=== PATIENT | male | born 2005 | race Native Hawaiian/Other Pacific Islander ===

== ENCOUNTER 2023-05-13 23:21 | Emergency (ER) | payer OTHER, SELFPAY ==
[2023-05-13 23:26] VITALS: BP 128/84; PULSE 107; RESP 18; TEMP 36.4; O2SAT 97; BMI 22.6
[2023-05-14 00:08] LABS: MANUAL DIFF FLAG NO
[2023-05-14 00:09] LABS: Basophils Percent Auto 0.3 % (0-2); Eosinophils Absolute Auto 0.1 X10*3/uL (0.0-0.4); Eosinophils Percent Auto 0.9 % (0-4); Hematocrit 38.1 % (37.0-47.0); Hemoglobin 13.3 g/dl (12.0-16.0); Imm Gran Abs Auto 0.03 X10*3/uL (0.00-0.03); Imm Gran Pct Auto 0.2 % (0.0-0.4); Lymphocytes Absolute Auto 3.8 X10*3/uL (1.2-4.9); Mean Corpuscular HGB Conc 34.9 g/dl (31.0-35.0); Mean Corpuscular Hemoglobin 30.1 pg (27.0-33.0); Mean Corpuscular Volume 86.2 fL (80.0-98.0); Mean Platelet Volume 9.6 fL (9.4-12.3); Monocytes Absolute Auto 1.2 X10*3/uL (0.1-1.2); Monocytes Percent Auto 9.5 % (2-11); Neutrophils Absolute Auto 7.1 x10*3/uL (2.0-8.3); Neutrophils Percent Auto 58.1 % (45-73); Platelet Count 267 X10*3/uL (160-400); Red Blood Count 4.42 X10*6/uL (4.20-5.50); Red Cell Distribution Width 12.4 % (11.0-16.0); White Blood Count 12.3 X10*3/uL (4.8-10.8)
[2023-05-14 00:10] LABS: Appearance Urine Clear; Color Urine Yellow; Glucose Urine UA Negative (Negative); Leukocyte Esterase Urine Negative (Negative); Nitrite Urine Negative (Negative); PH 5.5 (5.0-9.0); Specific Gravity - Urine >= 1.030 (1.005-1.025); Urine Blood Negative (Negative); Urine Ketones Trace mg/dL (Negative); Urine Protein Trace mg/dL (Neg-Trace)
[2023-05-14 00:13] LABS: UPreg QC Valid YES; Urine Pregnancy NEGATIVE (NEGATIVE)
--- NOTE | 2023-05-14 00:13 | MHC.EDTECH ---
pt belongings placed in [facility] #1
[2023-05-14 00:17] LABS: Amphetamine Screen Urine Not Detected (Not Detect); Barbiturates, Urine Not Detected (Not Detect); Benzodiazepines Screen Urine Not Detected (Not Detect); Cannabinoid Screen Urine POSITIVE (Not Detect); Cocaine Screen Urine Not Detected (Not Detect); Opiate Screen Urine Not Detected (Not Detect); Phencyclidine Screen Urine Not Detected (Not Detect)
--- NOTE | 2023-05-14 00:24 | ED_ITS ---
HPI - Psych General Chief Complaint: Psychiatric Symptoms Stated Complaint: SI Time Seen by Provider: 05/13/23 23:32 Source: patient Mode of arrival: ambulatory Limitations: no limitations History of Present Illness HPI Narrative: Patient no history of depression or psychiatric illness lives with her boyfriend with heated her parent's house and had to work tomorrow and walk all the way to [place] as patient has refused to drop her to her apartment had argument with her stepdad and after having verbal altercation patient was tearful and upset and made suicidal statement to her boyfriend patient of financial crisis lately at this time patient is feeling better going to college Related Data Home Medications Medication Instructions Recorded Confirmed No Known Home Meds 05/13/23 05/13/23 Allergies Allergy/AdvReac Type Severity Reaction Status Date / Time strawberry Allergy Rash Verified 05/13/23 23:33 peanut AdvReac Difficulty Verified 05/13/23 23:33 Breathing Review of Systems Review of Systems: Yes all other systems are reviewed and are negative Physical Exam Vital Signs: Vital Signs: Last Vital Signs Temp 97.6 F 05/13/23 23:26 Pulse 107 H 05/13/23 23:26 Resp 18 05/13/23 23:26 BP 128/84 05/13/23 23:26 Pulse Ox 97 05/13/23 23:26 O2 Del Method Room Air 05/13/23 23:26 BMI result Body Mass Index 22.6 Appearance: Alert. Oriented X3. No acute distress. Eyes: PERRLA, No Nystagmus ENT: Pharynx normal. Oral Mucosa moist Neck: Normal inspection. Neck supple. CVS: Normal heart rate and rhythm. Pulses normal. Respiratory: No respiratory distress. Equal air entry bilateral, no wheezing/rales/rhonchi Abdomen: Soft and nontender. Bowel sounds are present, no mass palpable, no CVA tenderness Skin: Skin warm and dry. Normal skin color. Normal skin turgor. Extremities: No lower extremity edema. No calf tenderness psych: Mood stable cheerful denies any SI HI Neuro: Oriented X 3. No motor deficit. No sensory deficit.No cerebellar signs , cranial nerves II-XII intact Medical Decision Making Medical Decision Making MDM Narrative: Patient under financial crisis feels okay at this time to go home with her fiance denies any SI or depression or psychological problems Lab Data 05/14/23 00:02 05/14/23 00:02 Labs: Lab Results 05/13/23 05/13/23 05/13/23 Range/Units 23:58 23:58 23:58 WBC (4.8-10.8) X10*3/uL RBC (4.20-5.50) X10*6/uL Hgb (12.0-16.0) g/dl Hct (37.0-47.0) % MCV (80.0-98.0) fL MCH (27.0-33.0) pg MCHC (31.0-35.0) g/dl RDW (11.0-16.0) % Plt Count (160-400) X10*3/uL MPV (9.4-12.3) fL Immature Gran % (Auto) (0.0-0.4) % Neut % (Auto) (45-73) % Lymph % (Auto) (20-40) % [place] % (Auto) (2-11) % Eos % (Auto) (0-4) % Baso % (Auto) (0-2) % Lymph # (Auto) (1.2-4.9) X10*3/uL [place] # (Auto) (0.1-1.2) X10*3/uL Eos # (Auto) (0.0-0.4) X10*3/uL Baso # (Auto) (0.0-0.2) X10*3/uL Abs Immat Gran (auto) (0.00-0.03) X10*3/uL Absolute Neuts (auto) (2.0-8.3) x10*3/uL Absolute Nucleated RBC (0.0-0.012) X10*3/uL Nucleated RBC % (auto) (0.0-0.2) /100WBC Urine Color Yellow Urine Appearance Clear Urine pH 5.5 (5.0-9.0) Ur Specific [place] >= 1.030 H (1.005-1.025) Urine Protein Trace (Neg-Trace) mg/dL Urine Glucose (UA) Negative (Negative) mg/dL Urine Ketones Trace (Negative) mg/dL Urine Blood Negative (Negative) Urine Nitrite Negative (Negative) Ur Leukocyte Esterase Negative (Negative) Urine Test NEGATIVE (NEGATIVE) Urine Opiates Screen Not Detected (Not Detect) Urine Fentanyl Screen POSITIVE H (Not Detect) Ur Barbiturates Screen Not Detected (Not Detect) Ur Phencyclidine Scrn Not Detected (Not Detect) Ur Amphetamines Screen Not Detected (Not Detect) U Benzodiazepines Scrn Not Detected (Not Detect) Urine Cocaine Screen Not Detected (Not Detect) U Marijuana (THC) Screen POSITIVE H (Not Detect) 05/14/23 Range/Units 00:02 WBC 12.3 H (4.8-10.8) X10*3/uL RBC 4.42 (4.20-5.50) X10*6/uL Hgb 13.3 (12.0-16.0) g/dl Hct 38.1 (37.0-47.0) % MCV 86.2 (80.0-98.0) fL MCH 30.1 (27.0-33.0) pg MCHC 34.9 (31.0-35.0) g/dl RDW 12.4 (11.0-16.0) % Plt Count 267 (160-400) X10*3/uL MPV 9.6 (9.4-12.3) fL Immature Gran % (Auto) 0.2 (0.0-0.4) % Neut % (Auto) 58.1 (45-73) % Lymph % (Auto) 31.0 (20-40) % [place] % (Auto) 9.5 (2-11) % Eos % (Auto) 0.9 (0-4) % Baso % (Auto) 0.3 (0-2) % Lymph # (Auto) 3.8 (1.2-4.9) X10*3/uL [place] # (Auto) 1.2 (0.1-1.2) X10*3/uL Eos # (Auto) 0.1 (0.0-0.4) X10*3/uL Baso # (Auto) 0.0 (0.0-0.2) X10*3/uL Abs Immat Gran (auto) 0.03 (0.00-0.03) X10*3/uL Absolute Neuts (auto) 7.1 (2.0-8.3) x10*3/uL Absolute Nucleated RBC 0.000 (0.0-0.012) X10*3/uL Nucleated RBC % (auto) 0.0 (0.0-0.2) /100WBC Urine Color Urine Appearance Urine pH (5.0-9.0) Ur Specific [place] (1.005-1.025) Urine Protein (Neg-Trace) mg/dL Urine Glucose (UA) (Negative) mg/dL Urine Ketones (Negative) mg/dL Urine Blood (Negative) Urine Nitrite (Negative) Ur Leukocyte Esterase (Negative) Urine Test (NEGATIVE) Urine Opiates Screen (Not Detect) Urine Fentanyl Screen (Not Detect) Ur Barbiturates Screen (Not Detect) Ur Phencyclidine Scrn (Not Detect) Ur Amphetamines Screen (Not Detect) U Benzodiazepines Scrn (Not Detect) Urine Cocaine Screen (Not Detect) U Marijuana (THC) Screen (Not Detect) Discharge Plan Discharge Clinical Impression: Emotional disorder Patient Disposition: Home, Self-Care Instructions: Anxiety in Adolescents (ED) Additional Instructions: Follow with your PCP/therapist if any concerns Prescriptions: No Action No Known Home Meds Interventions: [place]-Suicide Risk Severity Scale Last Done: 05/14/23 00:26
[2023-05-14 00:26] LABS: Acetaminophen LAB < 17 mcg/mL (<30); Alanine Aminotransferase 8 U/L (0-31); Albumin Level 4.7 g/dL (3.5-5.0); Alkaline Phosphatase 68 U/L (39-117); Anion Gap 16 (12-20); Aspartate Amino Transferase 14 U/L (5-31); Bilirubin Total 0.3 mg/dL (0.0-1.0); Blood Urea Nitrogen 19 mg/dL (9-16); Calcium 9.6 mg/dL (8.4-10.2); Carbon Dioxide 21 mmol/L (22-29); Chloride 107 mmol/L (96-108); Creatinine Clr Calc Pharmacy 84.7; Estimated Glomerular Filt Rate > 60; Ethanol < 10 mg/dL; Glucose Random 89 mg/dL (60-115); Potassium 3.9 mmol/L (3.3-5.1); Salicylate < 5.0 mg/dL (15-30); Sodium 140 mmol/L (135-145); Total Protein 7.7 g/dL (6.5-8.0)
[2023-05-15 12:53] LABS: Fentanyl, urine SEE COMMENTS (Not Detect)
[2023-05-19 09:20] LABS: Norfentanyl, Ur NEGATIVE
[2023-06-03 12:32] LABS: Fentanyl, Ur NEGATIVE
== END 2023-05-14 01:08 | disposition home or self-care (01) ==
PROVIDERS: Emergency Provider Internal Medicine
DX: F93.8 Other childhood emotional disorders (principal); R45.851 Suicidal ideations; F12.90 Cannabis use, unspecified, uncomplicated
CPT/HCPCS: 36415; 80053; 80143; 80179; 80307; 80354; 81003; 81025; 85025; 99283; 99284

== ENCOUNTER 2023-06-02 15:07 | Emergency (ER) | payer OTHER, SELFPAY ==
--- NOTE | ~2023-06-02 | XR_ITS ---
EXAMINATION: XR CHEST 2 VIEW CLINICAL INFORMATION: Fever and cough COMPARISON: None TECHNIQUE: PA and lateral views of the chest obtained. FINDINGS: The lungs are clear. There are no pleural effusions. The cardiomediastinal silhouette is normal. XR/XR chest 2V IMPRESSION: No acute cardiopulmonary disease.
[2023-06-02 15:15] VITALS: BP 112/70; PULSE 112; O2SAT 96
[2023-06-02 15:57] VITALS: BP 138/79; PULSE 107; RESP 18; TEMP 37.8; O2SAT 99; BMI 23.4
--- NOTE | 2023-06-02 15:58 | ED_ITS ---
HPI - URI/Sore Throat General Chief Complaint: Upper Respiratory Symptoms Stated Complaint: Body aches, voimiting Time Seen by Provider: 06/02/23 16:46 Source: patient and family (Significant other) Mode of arrival: ambulatory History of Present Illness HPI Narrative: This is a 17-year-old patient who comes in with body aches and vomiting, joint pain, nasal congestion and reports coughing up phlegm with sore throat and very tired. Denies any past medical history but does endorse smoking marijuana. Related Data Home Medications Medication Instructions Recorded Confirmed estradiol 2 mg tablet 2 mg PO BID 06/03/23 06/03/23 spironolactone 100 mg tablet 100 mg PO BID 06/03/23 06/03/23 Previous Rx's Medication Instructions Recorded amoxicillin 875 mg-potassium 1 tab PO Q12H #14 tabs 06/05/23 clavulanate 125 mg tablet Allergies Allergy/AdvReac Type Severity Reaction Status Date / Time strawberry Allergy Rash Verified 06/03/23 21:17 peanut AdvReac Difficulty Verified 06/03/23 21:17 Breathing Review of Systems Review of Systems: Pertinent positives and negatives as stated in HPI [facility] Past Medical History Source: nursing notes reviewed Social History Social History Household Members: Significant Other Housing: Apartment Do you presently have visiting nurse or other home services: No Patient Tobacco Use Status: Never used Tobacco Substance Use Type: Marijuana service: No Physical Exam Vital Signs: Vital Signs: Last Vital Signs Temp 99.3 F 06/02/23 20:10 Pulse 78 06/02/23 20:10 Resp 18 06/02/23 20:10 BP 105/53 L 06/02/23 20:10 Pulse Ox 98 06/02/23 20:10 O2 Del Method Room Air 06/02/23 20:10 BMI result Body Mass Index 23.4 VITAL SIGNS: Reviewed. GENERAL: Well developed, well nourished, in no acute distress. HEAD: Normocephalic/atraumatic EYES: PERRLA, EOMI EARS: Ext canals without abnormality NOSE: Nares patent bilateral OROPHARYNX: no oral lesions noted, posterior pharynx clear and non-erythematous without noted tonsillar enlargement/erythema/exudates NECK: Supple, no adenopathy LUNGS: Normal breath sounds. No adventitious sounds or accessory muscle use. SpO2<99> CARDIOVASCULAR: Regular rate and rhythm without noted murmurs ABDOMEN: Soft, non-tender, non-distended with bowel sounds. MUSCULOSKELETAL: No tenderness, deformities, or effusions noted on gross inspection. EXTREMITIES: No cyanosis, clubbing or edema. SKIN: Inspection of the skin reveals no rashes NEUROLOGIC: Alert and oriented x 4. Strength and sensation to light touch were grossly intact x 4. Course Course Course Narrative: RME- 16PM 17yo born male transition to female who is presenting to the ED with c/o chills, body aches, joint pains, fatigue, headaches, nausea/vomiting, lightheadedness, sore throat, coughing with yellow sputum production since yesterday worse today. + Co-Worker was sick no other sick contacts. No recent travel. Plan: Strep, COVID/RSV/flu swab and chest x-ray patient sent to EM for further evaluation treatment. Medications Administered Discontinued Medications Generic Name Dose Route Start Last Admin Trade Name Jarrell PRN Reason Stop Dose Admin Acetaminophen 975 mg 06/02/23 17:10 06/02/23 17:27 Acetaminophen 325 Mg Tablet PO 06/02/23 17:11 975 mg ONCE ONE Administration Diphenhydramine HCl 25 mg 06/02/23 18:41 06/02/23 18:50 Diphenhydramine Hcl 50 Mg/Ml Vial IM 06/02/23 18:42 25 mg ONCE ONE Administration Ibuprofen 800 mg 06/02/23 16:02 06/02/23 17:27 Ibuprofen 800 Mg Tablet PO 06/02/23 16:03 800 mg ONCE ONE Administration Metoclopramide HCl 10 mg 06/02/23 18:41 06/02/23 18:50 Metoclopramide Hcl 10 Mg/2 Ml Vial IM 06/02/23 18:42 10 mg ONCE ONE Administration Ondansetron HCl 4 mg 06/02/23 17:10 06/02/23 17:27 Ondansetron Odt 4 Mg Tab.Rapdis TRANSLINGU 06/02/23 17:11 4 mg ONCE ONE Administration Medical Decision Making Medical Decision Making MDM Narrative: 17-year-old patient with history and clinical presentation suggestive of possible viral syndrome verses hyperemesis secondary to marijuana use. After review of all vital signs and clinical exam I have no concerns for AOM/pneumonia. - Patient provided with Tylenol/ibuprofen as well as Zofran. - I was informed by nursing that patient still has nausea and vomiting and I have ordered Benadryl and Reglan. All viral testing is negative, strep is negative and chest x-ray does not demonstrate any infiltrate and otherwise my interpretation is in agreement with radiology's impression. On re-evaluation patient is improved after receiving the Benadryl and Reglan and has tolerated oral intake. Differential Diagnosis Differential Diagnoses: The differential diagnosis associated with the presentation includes Please see the discussion above Admission/Observation Consideration of admission/observation: Escalation of care including admission/observation considered Please see the discussion above Lab Data Labs: Lab Results 06/02/23 Range/Units 16:04 Influenza Type A (PCR) NEGATIVE (Negative) Influenza Type B (PCR) NEGATIVE (Negative) RSV RNA Qual (PCR) NEGATIVE (Negative) SARS-CoV-2 RNA (RT-PCR) NEGATIVE (Negative) S. pyogenes GrpA [place] Negative (Negative) Discharge Plan Discharge Clinical Impression: Nausea & vomiting, Cannabis use disorder Patient Disposition: Home, Self-Care Instructions: Acute Nausea and Vomiting (ED) Additional Instructions: 1. I would use caution in the amount of marijuana use as this may be contributing to your symptoms. 2. I have provided you with a prescription for antinausea medication. 3. Over the next 24 hours recommend bland diet and increase the amount of water intake. 4. Please follow-up with your primary care provider. Return to the ER for any worsening symptoms. Prescriptions: No Action spironolactone 100 mg tablet 100 mg PO BID estradiol 2 mg tablet 2 mg PO BID amoxicillin-pot clavulanate 875-125 mg Tablet 1 tab PO Q12H Qty: 14 0RF Interventions: ED Discharge Assessment Last Done: 06/02/23 21:04 Discharge Date/Time: 06/02/23 21:04
[2023-06-02 16:38] LABS: IDNOW Serial# 08D9AD1C; Strep A Nucleic Acid Negative (Negative)
[2023-06-02 17:01] LABS: Influenza A PCR NEGATIVE (Negative); Influenza B PCR NEGATIVE (Negative); Resp Syncy Virus RNA Qual PCR NEGATIVE (Negative); SARS COV2 PCR INHOUSE NEGATIVE (Negative)
[2023-06-02] MEDS: Acetaminophen 325 MG TABLET 975 MG PO (17:27)
[2023-06-02] MEDS: Ibuprofen 800 MG TABLET PO (17:27)
[2023-06-02] MEDS: Ondansetron ODT 4 MG TAB.RAPDIS TRANSLINGU (17:27)
[2023-06-02] MEDS: Metoclopramide HCl 10 MG/2 ML VIAL IM (18:50)
[2023-06-02] MEDS: diphenhydrAMINE HCL 50 MG/ML VIAL 25 MG IM (18:50)
[2023-06-02 20:10] VITALS: BP 105/53; PULSE 78; RESP 18; TEMP 37.4; O2SAT 98
--- NOTE | 2023-06-02 20:42 | PC.NURSE ---
po trial successful and pt states feeling better. aox4. calm, cooperative in bed. no distress.
--- NOTE | 2023-06-02 21:03 | PC.NURSE ---
aox4. calm, cooperative. no n/v at this time reported/noted. walks well. no respiratory distress. no cp/dizziness. no piv in place at this time. no pain noted.
== END 2023-06-02 21:04 | disposition home or self-care (01) ==
PROVIDERS: Physician Assistant Medical; Emergency Provider Student in an Organized Health Care Education/Training Program
DX: M79.10 Myalgia, unspecified site (principal); R05.9 Cough, unspecified; R11.2 Nausea with vomiting, unspecified; F12.10 Cannabis abuse, uncomplicated; Z20.822 Contact with and (suspected) exposure to COVID-19; Z20.828 Contact with and (suspected) exposure to other viral communicable diseases
CPT/HCPCS: 0241U; 71046; 87651; 96372; 99284; J1200; J2765

== ENCOUNTER 2023-06-03 08:56 | Inpatient (IN) | payer OTHER, SELFPAY ==
[2023-06-03] VITALS (10 sets, daily range): BP systolic 97–124; BP diastolic 52–69; PULSE 72–113; RESP 14–22; TEMP 36.4–38.2; O2SAT 95–100; BMI 23.4
--- NOTE | ~2023-06-03 | CT_ITS ---
HEAD CT WITHOUT IV CONTRAST NECK CT WITH IV CONTRAST INDICATION: Headache/neck pain. COMPARISON: None available. TECHNIQUE: First, a noncontrast CT of the head is performed. Multidetector CT acquisition of the neck was obtained following the administration of 60cc of Omnipaque 350IV contrast. Multiplanar reformats were acquired and utilized for image interpretation. This CT examination was performed using dose optimization techniques as appropriate, variously including the following: *Automated exposure control *Adjustment of mA and/or kV according to patient size (this includes techniques or standardized protocols for targeted exams where dose is matched to indication/reason for exam; i.e. extremities or head) *Use of iterative reconstruction technique FINDINGS: CT NECK: Bilateral palatine tonsillitis. No discrete peripherally enhancing fluid collection to suggest a peritonsillar abscess. No retropharyngeal abscess. There are multiple enlarged jugulodigastric/jugular chain of the bilaterally that are most likely reactive . Some of these lymph nodes have adjacent cellulitic change suggesting lymphadenitis. There is a 2.2 cm round nodule within the posterior left parapharyngeal space that may reflect an enlarged lateral retropharyngeal lymph node but should be followed once the acute course resolves to exclude an underlying mass lesion. CT HEAD: There is no intracranial hemorrhage, hydrocephalus, extra-axial surface collection, midline shift, or other herniation pattern. Starr to white matter differentiation is diffusely maintained without evidence of an evolved acute territorial infarct. The basilar cisterns are preserved. No significant soft tissue abnormality. No acute osseous abnormality. The paranasal sinuses and the mastoid air cells are well aerated. CT/CT soft tissue neck w IV con IMPRESSION: Bilateral palatine tonsillitis. No discrete peripherally enhancing fluid collection to suggest a peritonsillar abscess. No retropharyngeal abscess. There are multiple enlarged jugulodigastric/jugular chain of the bilaterally that are most likely reactive . Some of these lymph nodes have adjacent cellulitic change suggesting lymphadenitis. There is a 2.2 cm round nodule within the posterior left parapharyngeal space that may reflect an enlarged lateral retropharyngeal lymph node but should be followed once the acute course resolves to exclude an underlying mass lesion. No acute intracranial findings.
--- NOTE | ~2023-06-03 | CT_ITS ---
Examination: CTA chest. CT abdomen and pelvis IV contrast. Clinical indications: SOB. Abdominal pain with midline spinous tenderness. COMPARISON: None. TECHNIQUE: 5 mm thin axial and reformatted 3 mm thin sagittal and coronal images of chest, abdomen pelvis were obtained following IV 85 mL Omnipaque 350 355. In addition oblique 8 blood coronal mip images of chest were obtained. FINDINGS: CTA: There is good opacification of pulmonary artery and is branches without any intraluminal filling defect or not narrowing. The pulmonary artery is of normal size. The thoracic aorta is of normal caliber without aneurysm or dissection. Non-CTA: LUNGS: Both lungs are fairly well-expanded and clear of acute pneumonic process. No pulmonary nodule, mass or consolidation seen. There is no atelectasis or groundglass density. Mediastinum: Thyroid lobes are symmetrical and normal. The central trachea and the bronchi appears widely patent. No abnormal size mediastinal or hilar lymph nodes seen. There is residual thymus in the anterior mediastinum. There is no pericardial effusion. No coronary artery calcification seen. Pleura: No evidence of pleural thickening, effusion or pneumothorax. Axilla: No abnormal size axillary lymph nodes seen. There is bilateral gynecomastia. Rest the chest wall is unremarkable. Osseous structures: No aggressive lytic or sclerotic process seen. Abdomen and pelvis: Liver, ducts and gallbladder: The liver is homogeneous in density, normal size and contour. No focal lesion or intrahepatic ductal dilatation seen. There are no radiopaque gallstones, wall thickening or pericholecystic fluid collection. Spleen: Unremarkable. Pancreas: Unremarkable. Adrenal glands: Unremarkable. Kidneys and ureters: Both kidney nephrograms are symmetrical, normal size and cortical thickness. No enhancing renal mass, cyst or hydronephrosis seen. No obvious large radiopaque calculi. Lymphovascular structures: Abdominal aorta is normal caliber. No retroperitoneal lymph nodes or mass seen. Abdominal wall: Unremarkable. There are prominent fluid-filled elongated structures in bilateral inguinal canal question undescended testes or loculated fluid collection. The imaging doesn't extend below the pubis and the scrotum is not visualized. A belly button ring is noted. GI tract: There is scattered stool and gas seen in the colon without distention. The small bowel loops are normal caliber. Appendix is not visualized. No free air or free fluid seen. No inflammatory process seen. Pelvis: The bladder is nondistended. No radiopaque calculi wall thickening. The prostate gland is normal size with central gland calcification. No free fluid. Osseous structures: No aggressive lytic or sclerotic process seen. CT/CT angio chest PE protocol IMPRESSION: 1. No evidence of PE. No evidence of aortic dissection or aneurysm. 2. No acute process seen in the chest. 3. There is bilateral gynecomastia. 4. No acute intra-abdominal process seen. 5. Bilateral elongated fluid-filled structures in proximal to mid inguinal canal question undescended testes or loculated fluid collection. The imaging does not extend below the pubis and the scrotum is not visualized. A belly button ring is noted.
--- NOTE | ~2023-06-03 | CT_ITS ---
HEAD CT WITHOUT IV CONTRAST NECK CT WITH IV CONTRAST INDICATION: Headache/neck pain. COMPARISON: None available. TECHNIQUE: First, a noncontrast CT of the head is performed. Multidetector CT acquisition of the neck was obtained following the administration of 60cc of Omnipaque 350IV contrast. Multiplanar reformats were acquired and utilized for image interpretation. This CT examination was performed using dose optimization techniques as appropriate, variously including the following: *Automated exposure control *Adjustment of mA and/or kV according to patient size (this includes techniques or standardized protocols for targeted exams where dose is matched to indication/reason for exam; i.e. extremities or head) *Use of iterative reconstruction technique FINDINGS: CT NECK: Bilateral palatine tonsillitis. No discrete peripherally enhancing fluid collection to suggest a peritonsillar abscess. No retropharyngeal abscess. There are multiple enlarged jugulodigastric/jugular chain of the bilaterally that are most likely reactive . Some of these lymph nodes have adjacent cellulitic change suggesting lymphadenitis. There is a 2.2 cm round nodule within the posterior left parapharyngeal space that may reflect an enlarged lateral retropharyngeal lymph node but should be followed once the acute course resolves to exclude an underlying mass lesion. CT HEAD: There is no intracranial hemorrhage, hydrocephalus, extra-axial surface collection, midline shift, or other herniation pattern. Starr to white matter differentiation is diffusely maintained without evidence of an evolved acute territorial infarct. The basilar cisterns are preserved. No significant soft tissue abnormality. No acute osseous abnormality. The paranasal sinuses and the mastoid air cells are well aerated. CT/CT head/brain wo IV con IMPRESSION: Bilateral palatine tonsillitis. No discrete peripherally enhancing fluid collection to suggest a peritonsillar abscess. No retropharyngeal abscess. There are multiple enlarged jugulodigastric/jugular chain of the bilaterally that are most likely reactive . Some of these lymph nodes have adjacent cellulitic change suggesting lymphadenitis. There is a 2.2 cm round nodule within the posterior left parapharyngeal space that may reflect an enlarged lateral retropharyngeal lymph node but should be followed once the acute course resolves to exclude an underlying mass lesion. No acute intracranial findings.
--- NOTE | ~2023-06-03 | US_ITS ---
EXAMINATION: US SCROTUM CLINICAL INFORMATION: Pelvic pain. Follow up bilateral inguinal canal from CT abdomen and pelvis. COMPARISON: CT abdomen and pelvis 06/03/2023. TECHNIQUE: A sonogram of the scrotum was performed assessing seth-scale appearance and color Doppler flow. Spectral Doppler analysis of the arterial and venous flow were performed in the testes bilaterally. FINDINGS: RIGHT: Right testicle measures 4.2 x 1.9 x 2.4 cm, volume 10.2 mL. No focal testicular parenchymal lesions are visualized. Spectral Doppler analysis of the arterial and venous flow is normal in the right testis. Right epididymal head is normal in size. No right hydrocele or varicocele is seen. Right epididymal Doppler flow is normal. LEFT: Left testicle measures 3.0 x 1.8 x 2.8 cm, volume 8.0 mL. No focal testicular parenchymal lesions are visualized. Spectral Doppler analysis of the arterial and venous flow is normal in the left testis. Left epididymal head is normal in size. No left hydrocele or varicocele is seen. Left epididymal Doppler flow is normal. Imaging through bilateral inguinal canals reveals no focal abnormality or fluid collection. US/US scrotum IMPRESSION: Unremarkable scrotal ultrasound.
[2023-06-03 09:38] LABS: Hematocrit 39.3 % (42.0-52.0); Hemoglobin 13.8 g/dl (14.0-18.0); Mean Corpuscular HGB Conc 35.1 g/dl (31.0-36.0); Mean Corpuscular Hemoglobin 30.3 pg (27.0-33.0); Mean Corpuscular Volume 86.2 fL (80.0-98.0); Mean Platelet Volume 9.2 fL (9.4-12.4); Platelet Count 238 X10*3/uL (160-400); Red Blood Count 4.56 X10*6/uL (4.60-5.80); Red Cell Distribution Width 12.8 % (11.0-16.0)
[2023-06-03 09:43] LABS: White Blood Count 35.9 X10*3/uL (4.8-10.8)
[2023-06-03 09:50] LABS: Anion Gap 14 (12-20); Blood Urea Nitrogen 9 mg/dL (9-16); Calcium 10.3 mg/dL (8.4-10.2); Carbon Dioxide 21 mmol/L (22-29); Chloride 102 mmol/L (96-108); Creatinine Clr Calc Pharmacy 116.5; Estimated Glomerular Filt Rate > 60; Glucose Random 122 mg/dL (60-115); Potassium 3.7 mmol/L (3.3-5.1); Sodium 133 mmol/L (135-145)
--- NOTE | 2023-06-03 09:55 | ED.ABDPAIN ---
HPI - Abdominal Pain General Chief Complaint: Abdominal Pain Stated Complaint: vomiting, abd x 2 days, diff swallowing, per ems Time Seen by Provider: 06/03/23 09:54 Source: patient Mode of arrival: EMS Limitations: no limitations History of Present Illness HPI narrative: 17 year old transgender male to female presents to the ED today with a complaint of sore throat, fever, body aches, chills, and non bloody vomiting x2 days, worse today. Additionally reports lower back pain and lower extremity weakness/ aches. Has not had a BM in 2 days and has been unable to urinate secondary to decreased PO intake. Reports coworker is sick. No recent travel. Patient seen in ED yesterday with negative serology and unremarkable chest xray. Denies dysuria, hematuria, flank pain, bowel or bladder incontinence. Denies IVDU. Denies steroid use. Currently on hormone therapy. Related Data Home Medications Medication Instructions Recorded Confirmed estradiol 2 mg tablet 2 mg PO BID 06/03/23 06/03/23 spironolactone 100 mg tablet 100 mg PO BID 06/03/23 06/03/23 Allergies Allergy/AdvReac Type Severity Reaction Status Date / Time strawberry Allergy Rash Verified 05/13/23 23:33 peanut AdvReac Difficulty Verified 05/13/23 23:33 Breathing Review of Systems Review of Systems Constitutional: + fever, + chills, No fatigue, No malaise, + body aches ENT/Mouth: No ear pain, No hearing loss,? No nasal congestion, No sinus pain, No rhinorrhea, + sore throat, No hoarseness, No swallowing difficulty Eyes: No eye pain, No swelling, No redness, No vision changes, No foreign body, No discharge Cardio: No chest pain, No palpitations, No dyspnea on exertion, No orthopnea, No edema Respiratory: + SOB, No cough, No sputum, No wheezing, + dyspnea, No hemoptysis, No smoke exposure GI: + nausea, + vomiting, No hematemesis, No abdominal pain, No diarrhea, No constipation, No hematochezia, No melena : No irregular bleeding, No dysuria, No frequency, No urgency, No hesitancy, No hematuria, No flank pain, No urinary flow changes, No urinary incontinence or retention MSK: + back pain, No neck pain, No joint pain, No myalgias Skin: No skin lesions, No rashes Neuro: + weakness, No numbness, No paresthesias, No LOC, No dizziness, + headache Yes all other systems are reviewed and are negative [facility] Past Medical History Attestation statement: The following information was validated with the patient. Source: old records reviewed and nursing notes reviewed Social History Social History Substance Use Type: Marijuana Advance Directives: No Advance Directives Information Provided: Yes Physical Exam ED Vital Signs: Vital Signs - 24 hr 06/03/23 09:21 06/03/23 11:24 06/03/23 12:22 Temperature 98.7 F 99.4 F 100.7 F H Pulse Rate 113 H 110 H 105 H Respiratory Rate 18 22 H 14 Blood Pressure 120/65 124/69 108/63 Pulse Oximetry 97 98 100 Oxygen Delivery Method Room Air Room Air Room Air 06/03/23 13:25 06/03/23 15:35 Temperature 99.8 F 100.1 F Pulse Rate 106 H 109 H Respiratory Rate 22 H 18 Blood Pressure 105/53 L 103/66 Pulse Oximetry 97 97 Oxygen Delivery Method Room Air Room Air BMI result Body Mass Index 23.4 General: Diaphoretic. Rolling around on bed in obvious discomfort. Speaking in full sentences. Skin: Warm and dry. No rashes or lesions. Head: Normocephalic, atraumatic. EENT: EAC patent.Conjunctiva clear. Sclera is anicteric. Nasal septum is midline. Nares patent bilaterally. Tonsilar exudates b/l. Moist mucous membranes. Controlling secretions. Eyes: PERRLA. EOM intact. Neck: Supple without LAD. Normal ROM. Trachea midline.? Cardiac: Chest wall symmetric. Regular rate and rhythm. S1 and S1 appreciated. No MRG. No JVD. Lungs: CTA bilaterally. No rales, rhonchi, or wheezes. Normal respiratory effort without accessory muscle use. Abdomen: No visible lesions or scars. Soft, non-tender, non-distended. No rebound tenderness or guarding. Normoactive BS x4. No CVAT b/l. Spine: Midline spinous tenderness noted overlying L4-L5 without step off deformity. No midline c spine or t spine tenderness. No paraspinous tenderness. Normal ROM. Ext: Upper and lower extremities atraumatic, without tenderness, deformity, swelling or erythema. Full ROM throughout. Strength 5/5 throughout. Capillary refill <2 seconds in all extremities. Pulses 2+ equal and bilateral. No edema, cyanosis, or clubbing. Neuro: Alert and oriented x3. Normal speech. CN 2-12 grossly intact. Strength 5/5 intact throughout.? No saddle anesthesia.? Sensation intact to light touch.? Neurovascular intact distally. Reflexes 2+ bilaterally. Unable to assess ambulation. Course Course Course Narrative: 1105-- Leukocytosis to 35.9 with left shift, increased from 12.3 on 05/14/23 > lactic acid and cultures ordered. Abx administered. IVF started. No acute electrolyte abnormalities requiring intervention. 1148-- Lipase WNL. Lactic acid WNL. COVID, [place], flu negative. ESR WNL, CRP elevated to 12. 1215-- On re-evaluation, patient complaining of increased headache and neck pain. Will obtain head/brain CT + pain control. Temp now increased to 100.7F > Tylenol ordered. 1300-- No evidence of PE on CTA. No acute intrathoracic or intraabdominal process noted. Discussed case with my attending, Dr. Contreras who upon evaluating the patient has concerns for strep throat > awaiting rapid strep results. > My attending recommended CT neck with con to r/o CONFIGURATION MANAGEMENT ADMINISTRATOR or retropharyngeal abscess. CT NG throat swabs orderd to r/o possible gonococcal infection > Patient likely tachycardic and febrile secondary to viral illness. Unlikely sepsis. 1345-- Strep negative returned however high suspicion for strep infection > zosyn administered upon initial evaluation. 1530-- CT neck showing bilateral tonsillitis and multiple lymphnodes with adjacent cellulitic changes > will reach out to hospitalist for possible admission due to leukocytosis to 36. 1600- on re-eval, patient sleeping comfortably in bed. Used shared decision making with patient to discuss disposition. Patient agreeable to admission to the hospital for further workup of leukocytosis. Reached out to Dr. Torres who accepted patient for admission. Medical Decision Making Medical Decision Making [facility] Narrative: 1030 17 year old transgender female presenting with fever, chills, CHAVEZ, sore throat, N/V x2 days Physical exam significant for tonsilar exudates bilaterally. Controlling secretions, speaking in full sentences. Lungs CTA b/l. RRR. Midline spinous tenderness overlying L4-L5 without step off deformity. No midline c spine or t spine tenderness. No paraspinous tenderness. 5/5 strength throughout. Sensation intact to light touch. NV intact distally. Plan: labs, imaging, abx, IVF, pain control, serology, UA Concern for viral syndrome vs strep throat vs mono. Low suspicion for CONFIGURATION MANAGEMENT ADMINISTRATOR or retropharyngeal abscess. PERC score of 2 > CTA ordered for PE r/o. Unlikely ACS or pneumothorax. Concern for lumbar fracture vs muscle sprain/ strain s/p remote injury > xray lumbar spine ordered. Normal rectal sphincter tone > low suspicion for cauda equina. Concern for electrolyte abnormalities, dehydration, constipation. Low suspicion for UTI/ pyleo, nephrolithiasis, epidural abscess, cord compression, acute abdomen, or guillain barre. Differential Diagnosis Differential Diagnoses: The differential diagnosis associated with the presentation includes Concern for viral syndrome vs strep throat vs mono. Low suspicion for CONFIGURATION MANAGEMENT ADMINISTRATOR or retropharyngeal abscess. PERC score of 2 > CTA ordered for PE r/o. Unlikely ACS or pneumothorax. Concern for lumbar fracture vs muscle sprain/ strain s/p remote injury > xray lumbar spine ordered. Normal rectal sphincter tone > low suspicion for cauda equina. Concern for electrolyte abnormalities, dehydration, constipation. Low suspicion for UTI/ pyleo, nephrolithiasis, epidural abscess, cord compression, acute abdomen, or guillain barre. Admission/Observation Consideration of admission/observation: Escalation of care including admission/observation considered (as patient is tachycardic and hypoxic on 3L of oxygen secondary to +COVID) Consult Healthcare Provider Management of the patient was discussed with: Hospitalist (Dr. Shannon Torres) Lab Data MDM Lab Attestation statement: I reviewed the patient's lab results. As above. 06/03/23 09:32 06/03/23 10:36 Labs: Lab Results 06/03/23 06/03/23 06/03/23 Range/Units 09:32 10:36 11:02 WBC 35.9 H* (4.8-10.8) X10*3/uL RBC 4.56 L (4.60-5.80) X10*6/uL Hgb 13.8 L (14.0-18.0) g/dl Hct 39.3 L (42.0-52.0) % MCV 86.2 (80.0-98.0) fL MCH 30.3 (27.0-33.0) pg MCHC 35.1 (31.0-36.0) g/dl RDW 12.8 (11.0-16.0) % Plt Count 238 (160-400) X10*3/uL MPV 9.2 L (9.4-12.4) fL Immature Gran % (Auto) Cancelled Neut % (Auto) Cancelled Lymph % (Auto) Cancelled [place] % (Auto) Cancelled Eos % (Auto) Cancelled Baso % (Auto) Cancelled Lymph # (Auto) Cancelled [place] # (Auto) Cancelled Eos # (Auto) Cancelled Baso # (Auto) Cancelled Abs Immat Gran (auto) Cancelled Absolute Neuts (auto) Cancelled Absolute Nucleated RBC 0.000 (0.0-0.012) X10*3/uL Nucleated RBC % (auto) 0.0 (0.0-0.2) /100WBC Neutrophils % (Manual) 80 H (45-73) % Band Neutrophils % 8 H (3-5) % Lymphocytes % (Manual) 8 L (20-40) % Monocytes % (Manual) 4 (2-11) % Abs Neuts (Manual) 31.6 H (2.0-8.3) X10*3/uL Lymphocytes # (Manual) 2.9 (1.2-4.9) X10*3/uL Monocytes # (Manual) 1.4 H (0.1-1.2) X10*3/uL Toxic Vacuolation PRESENT Platelet Estimate NORMAL (NORMAL) Plt Morphology Comment NORMAL RBC Morphology NOTED Raghu Cells 2+ (3-5) /OIF Acanthocytes (Spur) 1+ (0-2) /OIF ESR 13 (0-15) MM/HR Sodium 133 L 133 L (135-145) mmol/L Potassium 3.7 3.9 (3.3-5.1) mmol/L Chloride 102 100 (96-108) mmol/L Carbon Dioxide 21 L 23 (22-29) mmol/L Anion Gap 14 14 (12-20) BUN 9 9 (9-16) mg/dL Creatinine 0.92 1.01 (0.5-1.4) mg/dL Estim Creat Clear Calc 116.5 106.1 Estimated GFR > 60 > 60 Random Glucose 122 H 115 (60-115) mg/dL Lactic Acid 1.6 (0.5-2.0) mmol/L Calcium 10.3 H D 10.2 (8.4-10.2) mg/dL Magnesium 1.6 (1.6-2.6) mg/dL Total Bilirubin 0.5 (0.0-1.0) mg/dL AST 15 (5-37) U/L ALT 11 (0-40) U/L Alkaline Phosphatase 62 (39-117) U/L C-Reactive Protein 11.97 H (< or = 0.50) mg/dL C-React Prot High Sens Cancelled Total Protein 7.9 (6.5-8.0) g/dL Albumin 4.6 (3.5-5.0) g/dL Lipase 16 (8-78) U/L COVID-19 (DANISH) Negative (Negative) COVID-19 Clin Com See Note Monoscreen Negative (Negative) Influenza Type A (SAGR[place]IO) Negative (Negative) Influenza Type B (SAGRARIO) Negative (Negative) Influenza A & B Note See Note S. pyogenes GrpA SAGRARIO (Negative) 06/03/23 Range/Units 12:31 WBC (4.8-10.8) X10*3/uL RBC (4.60-5.80) X10*6/uL Hgb (14.0-18.0) g/dl Hct (42.0-52.0) % MCV (80.0-98.0) fL MCH (27.0-33.0) pg MCHC (31.0-36.0) g/dl RDW (11.0-16.0) % Plt Count (160-400) X10*3/uL MPV (9.4-12.4) fL Immature Gran % (Auto) Neut % (Auto) Lymph % (Auto) [place] % (Auto) Eos % (Auto) Baso % (Auto) Lymph # (Auto) [place] # (Auto) Eos # (Auto) Baso # (Auto) Abs Immat Gran (auto) Absolute Neuts (auto) Absolute Nucleated RBC (0.0-0.012) X10*3/uL Nucleated RBC % (auto) (0.0-0.2) /100WBC Neutrophils % (Manual) (45-73) % Band Neutrophils % (3-5) % Lymphocytes % (Manual) (20-40) % Monocytes % (Manual) (2-11) % Abs Neuts (Manual) (2.0-8.3) X10*3/uL Lymphocytes # (Manual) (1.2-4.9) X10*3/uL Monocytes # (Manual) (0.1-1.2) X10*3/uL Toxic Vacuolation Platelet Estimate (NORMAL) Plt Morphology Comment RBC Morphology Mesa Cells /OIF Acanthocytes (Spur) /OIF ESR (0-15) MM/HR Sodium (135-145) mmol/L Potassium (3.3-5.1) mmol/L Chloride (96-108) mmol/L Carbon Dioxide (22-29) mmol/L Anion Gap (12-20) BUN (9-16) mg/dL Creatinine (0.5-1.4) mg/dL Estim Creat Clear Calc Estimated GFR Random Glucose (60-115) mg/dL Lactic Acid (0.5-2.0) mmol/L Calcium (8.4-10.2) mg/dL Magnesium (1.6-2.6) mg/dL Total Bilirubin (0.0-1.0) mg/dL AST (5-37) U/L ALT (0-40) U/L Alkaline Phosphatase (39-117) U/L C-Reactive Protein (< or = 0.50) mg/dL C-React Prot High Sens Total Protein (6.5-8.0) g/dL Albumin (3.5-5.0) g/dL Lipase (8-78) U/L COVID-19 (DANISH) (Negative) COVID-19 Clin Com Monoscreen (Negative) Influenza Type A (SAGRARIO) (Negative) Influenza Type B (SAGRARIO) (Negative) Influenza A & B Note S. pyogenes GrpA [place] Negative (Negative) Independent Interpretation I performed an independent interpretation of an: Plain X-Ray and CT Scan Interpretation: Agree with radiologist's interpretation. Radiology Impression Discussion of test interpretation with radiology: I have reviewed the radiologist's reading. Radiologist Impression: CT HEAD: There is no intracranial hemorrhage, hydrocephalus, extra-axial surface collection, midline shift, or other herniation pattern. Starr to white matter differentiation is diffusely maintained without evidence of an evolved acute territorial infarct. The basilar cisterns are preserved. No significant soft tissue abnormality. No acute osseous abnormality. The paranasal sinuses and the mastoid air cells are well aerated. CT soft tissue neck w IV con IMPRESSION: Bilateral palatine tonsillitis. No discrete peripherally enhancing fluid collection to suggest a peritonsillar abscess. No retropharyngeal abscess. There are multiple enlarged jugulodigastric/jugular chain of the bilaterally that are most likely reactive . Some of these lymph nodes have adjacent cellulitic change suggesting lymphadenitis. There is a 2.2 cm round nodule within the posterior left parapharyngeal space that may reflect an enlarged lateral retropharyngeal lymph node but should be followed once the acute course resolves to exclude an underlying mass lesion. No acute intracranial findings. CT angio chest PE protocol IMPRESSION: 1. No evidence of PE. No evidence of aortic dissection or aneurysm. 2. No acute process seen in the chest. 3. There is bilateral gynecomastia. 4. No acute intra-abdominal process seen. 5. Bilateral elongated fluid-filled structures in proximal to mid inguinal canal question undescended testes or loculated fluid collection. The imaging does not extend below the pubis and the scrotum is not visualized. A belly button ring is noted. CT abdomen pelvis w IV con IMPRESSION: 1. No evidence of PE. No evidence of aortic dissection or aneurysm. 2. No acute process seen in the chest. 3. There is bilateral gynecomastia. 4. No acute intra-abdominal process seen. 5. Bilateral elongated fluid-filled structures in proximal to mid inguinal canal question undescended testes or loculated fluid collection. The imaging does not extend below the pubis and the scrotum is not visualized. A belly button ring is noted. Independent Historian Clinical information obtained from an independent historian. History obtained from or confirmed by: Other (significant other) External Record Review External record reviewed: Inpatient record Prescription Management I considered prescription management with: Pain Medication and Antibiotic Chronic Conditions Patient?s care impacted by: Other (transgender on hormone therapy) Core Measures AMI core measures followed: Yes Measure exclusions: not indicated Medications Administered Discontinued Medications Generic Name Dose Route Start Last Admin Trade Name Freq PRN Reason Stop Dose Admin Acetaminophen 975 mg 06/03/23 12:23 06/03/23 14:46 Acetaminophen 325 Mg Tablet PO 06/03/23 12:24 975 mg ONCE ONE Administration Dexamethasone Sodium Phosphate 10 mg 06/03/23 14:26 06/03/23 14:46 Dexamethasone Sod Phosphate 10 Mg/Ml Vial IVPUSH 06/03/23 14:27 10 mg ONCE ONE Administration Diphenhydramine HCl 50 mg 06/03/23 12:13 06/03/23 12:25 Diphenhydramine Hcl 50 Mg/Ml Vial IVPUSH 06/03/23 12:14 50 mg ONCE ONE Administration Piperacillin Sod/Tazobactam 50 mls @ 100 mls/hr 06/03/23 10:33 06/03/23 11:35 Sod 3.375 gm/ Sodium Chloride IV 06/03/23 11:02 Infused ONCE ONE Infusion Sodium Chloride 1,973.13 mls @ 1,973.13 mls/hr 06/03/23 10:33 06/03/23 11:45 Ns 30 ml/kg infuse over 1 hr (1973.13 ml) 06/03/23 11:32 Infused IV Infusion .Q1H STA Sodium Chloride 1,000 mls @ 999 mls/hr 06/03/23 13:15 06/03/23 14:45 Ns IV 06/03/23 14:15 999 mls/hr .Q1H1M ANDRES Administration Ibuprofen 600 mg 06/03/23 12:53 06/03/23 14:46 Ibuprofen 600 Mg Tablet PO 06/03/23 12:54 600 mg ONCE ONE Administration Iohexol 85 ml 06/03/23 11:35 06/03/23 11:35 Iohexol 350 Mg/Ml 100 Ml Infus..Btl IV 06/03/23 11:36 85 ml ONCE ONE Administration Ketorolac Tromethamine 15 mg 06/03/23 12:13 06/03/23 12:24 Ketorolac Tromethamine 15 Mg/Ml Vial IVPUSH 06/03/23 12:14 15 mg ONCE ONE Administration Metoclopramide HCl 10 mg 06/03/23 12:13 06/03/23 12:25 Metoclopramide Hcl 10 Mg/2 Ml Vial IVPUSH 06/03/23 12:14 10 mg ONCE ONE Administration Morphine Sulfate 4 mg 06/03/23 10:41 06/03/23 10:46 Morphine Sulfate 4 Mg/Ml Cartridge IVPUSH 06/03/23 10:42 4 mg ONCE ONE Administration Protocol Ondansetron HCl 4 mg 06/03/23 10:40 06/03/23 10:46 Ondansetron Hcl 4 Mg/2 Ml Vial IVPUSH 06/03/23 10:41 4 mg ONCE ONE Administration Discharge Plan Discharge Clinical Impression: Leukocytosis, Sore throat Patient Disposition: Admitted As Inpatient
[2023-06-03 10:18] LABS: Band Neutrophils Percent 8 % (3-5); Lymphocytes Absolute Manual 2.9 X10*3/uL (1.2-4.9); Lymphocytes Percent Manual 8 % (20-40); Monocytes Absolute Manual 1.4 X10*3/uL (0.1-1.2); Monocytes Percent Manual 4 % (2-11); Neutrophils Absolute Manual 31.6 X10*3/uL (2.0-8.3); Neutrophils Percent Manual 80 % (45-73)
[2023-06-03 10:20] LABS: Acanthocytes 1+ (0-2) /OIF; Burr Cells 2+ (3-5) /OIF; Platelet Estimate NORMAL (NORMAL); Platelet Morphology Comment NORMAL; RBC Morphology NOTED
[2023-06-03 10:21] LABS: Toxic Vacuolation PRESENT
[2023-06-03] MEDS: 0.9 % Sodium Chloride 1,973.13 ML 1973.13 ML IV (10:45)
[2023-06-03] MEDS: Morphine Sulfate 4 MG/ML CARTRIDGE IVPUSH (10:46)
[2023-06-03] MEDS: ondansetron HCL 4 MG/2 ML VIAL IVPUSH (10:46)
[2023-06-03 10:51] LABS: Lactic Acid 1.6 mmol/L (0.5-2.0)
--- NOTE | 2023-06-03 10:53 | PC.NURSE ---
crying in room, writhing around on stretcher from 07/05 abdominal/back pain. oral temp 99.4, iv established labs drawn and sent. fluids infusing, medicated for pain per the MAR. first set of blood cultures obtained.
[2023-06-03 10:56] LABS: Alanine Aminotransferase 11 U/L (0-40); Albumin Level 4.6 g/dL (3.5-5.0); Alkaline Phosphatase 62 U/L (39-117); Anion Gap 14 (12-20); Aspartate Amino Transferase 15 U/L (5-37); Bilirubin Total 0.5 mg/dL (0.0-1.0); Blood Urea Nitrogen 9 mg/dL (9-16); Calcium 10.2 mg/dL (8.4-10.2); Carbon Dioxide 23 mmol/L (22-29); Chloride 100 mmol/L (96-108); Creatinine Clr Calc Pharmacy 106.1; Estimated Glomerular Filt Rate > 60; Glucose Random 115 mg/dL (60-115); Potassium 3.9 mmol/L (3.3-5.1); Sodium 133 mmol/L (135-145); Total Protein 7.9 g/dL (6.5-8.0)
[2023-06-03] MEDS: Piperacillin Sodium/Tazobactam 3.375 GM in 0.9 % Sodium Chloride 50 ML IV ×2 (11:05→19:38)
[2023-06-03 11:22] LABS: Lipase 16 U/L (8-78); Magnesium 1.6 mg/dL (1.6-2.6)
[2023-06-03 11:30] LABS: Monotest Negative (Negative)
[2023-06-03 11:30] LABS: IDNOW Serial# 9DB6401D; Influenza A Negative (Negative); Influenza B2 Negative (Negative)
[2023-06-03 11:31] LABS: COVID-19 Test Negative (Negative); IDNOW Serial# 08D9AD1C
[2023-06-03] MEDS: iohexoL 350 MG/ML 100 ML INFUS..BTL 85 ML IV (11:35)
[2023-06-03 11:48] LABS: Erythrocyte Sedimentation Rate 13 MM/HR (0-15)
[2023-06-03] MEDS: Ketorolac Tromethamine 15 MG/ML VIAL IVPUSH ×2 (12:24→19:37)
[2023-06-03] MEDS: diphenhydrAMINE HCL 50 MG/ML VIAL IVPUSH (12:25)
[2023-06-03] MEDS: Metoclopramide HCl 10 MG/2 ML VIAL IVPUSH (12:25)
[2023-06-03 12:45] LABS: IDNOW Serial# 08D9AD1C; Strep A Nucleic Acid Negative (Negative)
--- NOTE | 2023-06-03 12:48 | PC.NURSE ---
medicated per the MAR for pain, pt reports pain continues throughout back and abdomen now traveling to head and neck. placed on monitor, call damian within reach. strep swab obtained and sent to lab.
[2023-06-03 13:23] LABS: C Reactive Protein 11.97 mg/dL (< or = 0.50)
[2023-06-03] MEDS: 0.9 % Sodium Chloride 1,000 ML 999 ML IV (14:45)
[2023-06-03] MEDS: Acetaminophen 325 MG TABLET 975 MG PO (14:46)
[2023-06-03] MEDS: Ibuprofen 600 MG TABLET PO (14:46)
[2023-06-03] MEDS: dexAMETHasone sod phosphate 10 MG/ML VIAL IVPUSH (14:46)
--- NOTE | 2023-06-03 14:55 | PC.NURSE ---
throat swab obtained. pt resting quietly in the room with respirations even and unlabored. medicated per the MAR, call damian within reach.
--- NOTE | 2023-06-03 16:05 | PHA.MEDREC ---
Pharmacy Consult ? Medication Reconciliation Pharmacy has completed the medication reconciliation. Patient reported medications. Fide Dumont, OliverD
--- NOTE | 2023-06-03 17:47 | PC.NURSE ---
plan for admission, pt appears to be resting on and off in room.
--- NOTE | 2023-06-03 18:31 | P.HPHOSP_ITS ---
History of Present Illness Date of Service: 06/03/23 Chief Complaint: Generalized body aches/sore throat 17-year-old transgender male to female presented to [facility] on 06/02 due to generalized body ache, nausea vomiting, joint pain nasal congestion and cough with sore throat, patient was treated with antiemetics, analgesics and was discharged home with diagnosis of acute nausea and vomiting question related to cannabis, patient return back to [facility] today, due to fever chills, generalized body ache worsened neck back chest and stomach with decreased by mouth intake x3 days, unable to swallow and keep food down , no bowel movement in 2 days, decreased urination related to decreased by mouth intake, patient co-worker was sick with loss of taste and smell, denies recent history of travel, denies IV drug use, no recent steroid use, denies urinary urgency frequency, currently receiving hormonal therapy and spironolactone in the emergency room patient noted to have an elevated WBC count 35.9 , stable hematocrit and renal function sodium 133, strep pyogenes negative, COVID negative, CTA chest showed no evidence of PE, no acute process in the chest, soft tissue neck CT showed bilateral palatine tonsillitis no peritonsillar abscess, there were multiple and large jugulodigastric and jugular chain lymphadenopathy, there was a 2.2 cm out nodule in the posterior left parapharyngeal space likely and large lateral retropharyngeal lymph node, radiologist recommend follow-up once acute course resolved to exclude underlying mass lesion, patient in the a noted to be tachycardia, tachypneic febrile treated with IV Zosyn IV fluid and IV morphine and now being admitted to [facility] with a diagnosis of sepsis due to acute tonsillitis. Review of Systems 2 Review of Systems: General no headache, no dizziness ,+ fever chills. CVS no chest pain, no palpitation. Respiratory cough no sob. Gastrointestinal nausea vomiting decreased by mouth intake Skin no rash no urgency, no frequency All other system reviewed and negative PMFSH Pertinent family history: Mother has hypertension, multiple first-degree relatives have diabetes Social History Household Members: Significant Other Housing: Apartment Do you presently have visiting nurse or other home services: No Patient Tobacco Use Status: Never used Tobacco Substance Use Type: Marijuana Substance Use Frequency: Daily Have you been hit, kicked, punched, or otherwise hurt by someone within the past year? If so, by whom?: No Do you feel safe in your current relationship?: Yes Is there a partner from a previous relationship who is making you feel unsafe now?: No Are you made to feel afraid or neglected: No Advance Directives: No Advance Directives Information Provided: Yes Do you have thoughts of harming others: None Do you have a plan to hurt others: No Plan Recently lost weight without trying: No Eating poorly because of decreased appetite: No Nutrition Risks: No Nutritional Risk Poor oral hygiene: No service: No Meds Allergies Allergy/AdvReac Type Severity Reaction Status Date / Time strawberry Allergy Rash Verified 06/03/23 21:17 peanut AdvReac Difficulty Verified 06/03/23 21:17 Breathing Active Medications: Current Medications Acetaminophen (Acetaminophen 325 Mg Tablet) 650 mg PO Q6H PRN PRN Reason: Pain, Mild (Pain Scale 1-3) Benzocaine (Throat Lozenge, Medicated Lozenge) 1 lozenge MUCOUS MEM Q2H PRN PRN Reason: Sore Throat Estradiol (Estradiol 0.5 Mg Tablet) 2 mg PO BID COUNTS INCLUDE 234 BEDS AT THE [facility] Guaifenesin/Dextromethorphan (Guaifenesin Dm 100/10/5 Ml 5 Ml Syrup) 10 ml PO Q6H PRN PRN Reason: cough Piperacillin Sod/Tazobactam (Sod 3.375 gm/ Sodium Chloride) 50 mls @ 100 mls/hr IV Q6H ANDRES Dextrose/Lactated Ringer's (D5lr) 1,000 mls @ 125 mls/hr IVCONT .Q8H COUNTS INCLUDE 234 BEDS AT THE [facility] Ketorolac Tromethamine (Ketorolac Tromethamine 15 Mg/Ml Vial) 15 mg IVPUSH Q6H PRN PRN Reason: Pain, Moderate(Pain Scale 4-6) Melatonin (Melatonin 3 Mg Tablet) 3 mg PO BEDTIME PRN PRN Reason: Insomnia Ondansetron HCl (Ondansetron Hcl 4 Mg/2 Ml Vial) 4 mg IVPUSH Q8H PRN PRN Reason: Nausea and Vomiting Sodium Chloride (0.9 % Sodium Chloride Flush 3 Ml Syringe) 3 ml IVFLUSH QSHIFT COUNTS INCLUDE 234 BEDS AT THE [facility] Home Medications Medication Instructions Recorded Confirmed Last Taken Type estradiol 2 mg tablet 2 mg PO BID 06/03/23 06/03/23 06/03/23 History spironolactone 100 mg tablet 100 mg PO BID 06/03/23 06/03/23 06/03/23 History Physical Exam 2 Vital Signs and Narrative: Vital Signs: Last Vital Signs Temp 98.8 F 06/03/23 17:30 Pulse 83 06/03/23 17:30 Resp 18 06/03/23 17:30 BP 97/55 L 06/03/23 17:30 Pulse Ox 99 06/03/23 17:30 O2 Del Method Room Air 06/03/23 17:30 BMI result Body Mass Index 23.4 Const: Other: General awake alert x3, in mild distress due to generalized pain and sore throat, able to speak in full sentences Oral mucosa moist, bilateral tonsillar enlargement with exudate. Neck palpable submandibular lymph nodes tender to palpation CVS regular rate rhythm, Respiratory lungs clear to auscultation, no respiratory distress, no wheeze, no rhonchi. Gastrointestinal abdomen soft, nontender, bowel sounds audible, no guarding , no rigidity. Extremities no edema. Neuro nonfocal Skin no rash Psych appropriate affect Results Labs 06/04/23 07:23 06/04/23 07:23 Labs: Laboratory Results - last 24 hr 06/03/23 06/03/23 06/03/23 09:32 10:36 11:02 MCV 86.2 MCH 30.3 MCHC 35.1 RDW 12.8 Plt Count 238 MPV 9.2 L Immature Gran % (Auto) Cancelled Neut % (Auto) Cancelled Lymph % (Auto) Cancelled [place] % (Auto) Cancelled Eos % (Auto) Cancelled Baso % (Auto) Cancelled Lymph # (Auto) Cancelled [place] # (Auto) Cancelled Eos # (Auto) Cancelled Baso # (Auto) Cancelled Abs Immat Gran (auto) Cancelled Absolute Neuts (auto) Cancelled Absolute Nucleated RBC 0.000 Nucleated RBC % (auto) 0.0 Neutrophils % (Manual) 80 H Band Neutrophils % 8 H Lymphocytes % (Manual) 8 L Monocytes % (Manual) 4 Abs Neuts (Manual) 31.6 H Lymphocytes # (Manual) 2.9 Monocytes # (Manual) 1.4 H Toxic Vacuolation PRESENT Platelet Estimate NORMAL Plt Morphology Comment NORMAL RBC Morphology NOTED [place] Cells 2+ (3-5) Acanthocytes (Spur) 1+ (0-2) ESR 13 Anion Gap 14 14 Estim Creat Clear Calc 116.5 106.1 Estimated GFR > 60 > 60 Random Glucose 122 H 115 Lactic Acid 1.6 Calcium 10.3 H D 10.2 Magnesium 1.6 Total Bilirubin 0.5 AST 15 ALT 11 Alkaline Phosphatase 62 C-Reactive Protein 11.97 H C-React Prot High Sens Cancelled Total Protein 7.9 Albumin 4.6 Lipase 16 COVID-19 (DANISH) Negative COVID-19 Clin Com See Note Monoscreen Negative Influenza Type A ([place]) Negative Influenza Type B ([place]) Negative Influenza A & B Note See Note S. pyogenes GrpA [place] 06/03/23 12:31 MCV MCH MCHC RDW Plt Count MPV Immature Gran % (Auto) Neut % (Auto) Lymph % (Auto) [place] % (Auto) Eos % (Auto) Baso % (Auto) Lymph # (Auto) [place] # (Auto) Eos # (Auto) Baso # (Auto) Abs Immat Gran (auto) Absolute Neuts (auto) Absolute Nucleated RBC Nucleated RBC % (auto) Neutrophils % (Manual) Band Neutrophils % Lymphocytes % (Manual) Monocytes % (Manual) Abs Neuts (Manual) Lymphocytes # (Manual) Monocytes # (Manual) Toxic Vacuolation Platelet Estimate Plt Morphology Comment RBC Morphology [place] Cells Acanthocytes (Spur) ESR Anion Gap Estim Creat Clear Calc Estimated GFR Random Glucose Lactic Acid Calcium Magnesium Total Bilirubin AST ALT Alkaline Phosphatase C-Reactive Protein C-React Prot High Sens Total Protein Albumin Lipase COVID-19 (DANISH) COVID-19 Clin Com Monoscreen Influenza Type A ([place]) Influenza Type B ([place]) Influenza A & B Note S. pyogenes GrpA [place] Negative Imaging Radiologist's Impressions: Impressions Abdomen/Pelvis CT 06/03/23 11:37 IMPRESSION: 1. No evidence of PE. No evidence of aortic dissection or aneurysm. 2. No acute process seen in the chest. 3. There is bilateral gynecomastia. 4. No acute intra-abdominal process seen. 5. Bilateral elongated fluid-filled structures in proximal to mid inguinal canal question undescended testes or loculated fluid collection. The imaging does not extend below the pubis and the scrotum is not visualized. A belly button ring is noted. Chest CTA 06/03/23 11:37 IMPRESSION: 1. No evidence of PE. No evidence of aortic dissection or aneurysm. 2. No acute process seen in the chest. 3. There is bilateral gynecomastia. 4. No acute intra-abdominal process seen. 5. Bilateral elongated fluid-filled structures in proximal to mid inguinal canal question undescended testes or loculated fluid collection. The imaging does not extend below the pubis and the scrotum is not visualized. A belly button ring is noted. Head CT 06/03/23 14:33 IMPRESSION: Bilateral palatine tonsillitis. No discrete peripherally enhancing fluid collection to suggest a peritonsillar abscess. No retropharyngeal abscess. There are multiple enlarged jugulodigastric/jugular chain of the bilaterally that are most likely reactive . Some of these lymph nodes have adjacent cellulitic change suggesting lymphadenitis. There is a 2.2 cm round nodule within the posterior left parapharyngeal space that may reflect an enlarged lateral retropharyngeal lymph node but should be followed once the acute course resolves to exclude an underlying mass lesion. No acute intracranial findings. Soft Tissue Neck CT 06/03/23 14:33 IMPRESSION: Bilateral palatine tonsillitis. No discrete peripherally enhancing fluid collection to suggest a peritonsillar abscess. No retropharyngeal abscess. There are multiple enlarged jugulodigastric/jugular chain of the bilaterally that are most likely reactive . Some of these lymph nodes have adjacent cellulitic change suggesting lymphadenitis. There is a 2.2 cm round nodule within the posterior left parapharyngeal space that may reflect an enlarged lateral retropharyngeal lymph node but should be followed once the acute course resolves to exclude an underlying mass lesion. No acute intracranial findings. Assessment and Plan (1) Leukocytosis: Status: Acute (2) Sepsis: Status: Acute (3) Acute tonsillitis: Status: Acute Plan 17-year-old transgender male to female presented to ER with 2-3 days history of sore throat fever, body aches chills decreased by mouth intake with nausea vomiting diagnosed to have bilateral acute tonsillitis with elevated WBC count and CRP patient be admitted to [facility] with a diagnosis of sepsis due to acute tonsillitis. Sepsis due to acute tonsillitis Admitted to medical floor, placed on IV fluid, IV Zosyn, cough medication, lozenges Recommend saltwater gargles, analgesics Tachypnea, tachycardia and leukocytosis, low-grade fever Elevated WBC and CRP, normal lactic acids Follow blood cultures, CBC and CRP Male to female transgender Continue estrogen, and spironolactone Code status full code DVT prophylaxis early ambulation In my clinical judgment patient will need 2 night inpatient hospitalization due to sepsis requiring IV antibiotics, IV fluids and close clinical follow-up. Time Spent With Patient Time: Total time managing care of this patient today ____ minutes. Quality Stroke Does the patient have a stroke diagnosis?: No VTE Prior VTE?: No VTE Risk Level:: Medical - low VTE Device Contraindication: Treatment Not Indicated VTE Drug Contraindication: Treatment Not Indicated
[2023-06-03] MEDS: Dextrose 5 % and Lactated Ring 1,000 ML 125 ML IVCONT (19:38)
--- NOTE | 2023-06-03 20:25 | PC.NURSE ---
Pt alert and oriented, fiance at bedside. Iv line patent and intact. vss, pt reports continued pain 07/05. administered medications as per NOV. Pt disconnected from IV to utilized bathroom. Pt ambulated independent, gait steady pt endorsed pain while walking. Pt reconnected to IV- Iv fluids running at 125mls/hr Report given to accepting unit RN. Will be transported by diet tech
[2023-06-03] MEDS: Acetaminophen 325 MG TABLET 650 MG PO (21:37)
[2023-06-03] MEDS: Throat Lozenge, Medicated LOZENGE 1 LOZENGE MUCOUS MEM (21:37)
[2023-06-03] MEDS: estradioL 0.5 MG TABLET 2 MG PO (21:37)
--- NOTE | 2023-06-04 | ECG_ITS ---
Test Reason : chest pain Blood Pressure : / mmHG Vent. Rate : 075 BPM Atrial Rate : 075 BPM P-R Int : 166 ms QRS Dur : 084 ms QT Int : 376 ms P-R-T Axes : 045 081 037 degrees QTc Int : 419 ms Normal sinus rhythm Normal ECG No previous ECGs available Referred By: Yvonne Parra Electronically Signed By:LICHA HENRIQUEZ
[2023-06-04 00:02] LABS: Appearance Urine Clear; Color Urine Yellow; Glucose Urine UA >=1000 mg/dL (Negative); Leukocyte Esterase Urine Negative (Negative); Nitrite Urine Negative (Negative); PH 6.5 (5.0-9.0); Specific Gravity - Urine 1.025 (1.005-1.025); UMIC TRIGGER UACC YES; Urine Blood Negative (Negative); Urine Ketones Negative (Negative); Urine Protein Negative (Neg-Trace)
[2023-06-04 00:07] LABS: Bacteria Urine None Seen (None Seen); Hyaline Casts Urine 0-2 /LPF (0-2); RBC Urine 0-2 /HPF (0-2); Squamous Epithelial Cell Urine 0-2 /HPF (0-2); WBC Urine 0-5 /HPF (0-5)
[2023-06-04] MEDS: Piperacillin Sodium/Tazobactam 3.375 GM in 0.9 % Sodium Chloride 50 ML IV ×4 (00:42→20:42)
[2023-06-04] MEDS: Ketorolac Tromethamine 15 MG/ML VIAL IVPUSH ×3 (00:52→16:54)
[2023-06-04] MEDS: Throat Lozenge, Medicated LOZENGE 1 LOZENGE MUCOUS MEM ×2 (00:53→23:59)
[2023-06-04] MEDS: Dextrose 5 % and Lactated Ring 1,000 ML 125 ML IVCONT ×3 (04:50→22:17)
[2023-06-04] MEDS: ondansetron HCL 4 MG/2 ML VIAL IVPUSH ×2 (06:33→16:31)
[2023-06-04] MEDS: LORazepam 2 MG/ML VIAL 0.5 MG IVPUSH (06:42)
[2023-06-04 06:55] VITALS: BP 125/76; PULSE 101; RESP 20; TEMP 36.4; O2SAT 100
[2023-06-04] MEDS: estradioL 0.5 MG TABLET 2 MG PO ×2 (07:33→20:46)
[2023-06-04 07:39] LABS: Hemoglobin 11.8 g/dl (14.0-18.0); Mean Corpuscular HGB Conc 34.7 g/dl (31.0-36.0); Mean Corpuscular Hemoglobin 30.6 pg (27.0-33.0); Mean Corpuscular Volume 88.3 fL (80.0-98.0); Mean Platelet Volume 9.7 fL (9.4-12.4); Platelet Count 192 X10*3/uL (160-400); Red Blood Count 3.85 X10*6/uL (4.60-5.80); Red Cell Distribution Width 13.2 % (11.0-16.0); White Blood Count 25.5 X10*3/uL (4.8-10.8)
[2023-06-04 07:48] VITALS: BP 112/58; PULSE 78; RESP 18; TEMP 36.5; O2SAT 100
[2023-06-04 07:52] LABS: Anion Gap 10 (12-20); Blood Urea Nitrogen 11 mg/dL (9-16); Calcium 9.5 mg/dL (8.4-10.2); Carbon Dioxide 22 mmol/L (22-29); Chloride 109 mmol/L (96-108); Creatinine Clr Calc Pharmacy 144.8; Estimated Glomerular Filt Rate > 60; Glucose Random 122 mg/dL (60-115); Potassium 4.2 mmol/L (3.3-5.1); Sodium 137 mmol/L (135-145)
[2023-06-04 08:01] LABS: Troponin-I High Sensitivity < 2.7 ng/L (<3.5-35.0)
[2023-06-04] MEDS: Acetaminophen 325 MG TABLET 650 MG PO ×2 (08:45→16:31)
[2023-06-04] MEDS: hydrOXYzine HCL 50 MG TABLET PO (10:10)
--- NOTE | 2023-06-04 11:29 | MHC.CM.PN ---
CM MET WITH PT, WILBER, WHO REPORTS SHE LIVES WITH HER FRIEND PT REPORTS BEING INDEPENDENT WITH ALL CARE PT DENIES USING DME OR HOME SERVICES PT COMPLETED A HCP TODAY NAMING HER MOTHER, MATT YOUSSEF [phone] HER AGENT PCP: ELEANOR DEE DCP: HOME NO SERVICES VIA PRIVATE TRANSPORT
--- NOTE | 2023-06-04 13:02 | HO.PM.IMPN ---
Subjective Subjective Date of Service: 06/04/23 Interval History: Complaining of bilateral chest pain worse with deep breathing, back pain, sore throat is better, no fevers, no chills, able to tolerate full liquid diet no nausea, no vomiting, no abdominal pain, no headache, no dizziness. Review of Systems All other system reviewed and negative. Physical Exam Vital Signs: Vital Signs: Last Vital Signs Temp 97.7 F 06/04/23 07:48 Pulse 78 06/04/23 07:48 Resp 18 06/04/23 07:48 BP 112/58 L 06/04/23 07:48 Pulse Ox 100 06/04/23 07:48 O2 Del Method Room Air 06/04/23 07:48 BMI result Body Mass Index 23.4 Const: Other: General awake alert x3, in mild distress due to generalized pain and sore throat, able to speak in full sentences Oral mucosa moist, bilateral tonsillar enlargement with exudate. Neck palpable submandibular lymph nodes less tender to palpation CVS regular rate rhythm, Respiratory lungs clear to auscultation, no respiratory distress, no wheeze, no rhonchi. Gastrointestinal abdomen soft, non tender, bowel sounds audible, no guarding , no rigidity. Extremities no edema. Neuro non focal Skin no rash Psych appropriate affect Objective Data Active Medications Acetaminophen (Acetaminophen 325 Mg Tablet) 650 mg PO Q6H PRN PRN Reason: Pain, Mild (Pain Scale 1-3) Last Admin: 06/04/23 08:45 Dose: 650 mg Documented By: ANDREI Al Hydroxide/Mg Hydroxide (Magnesium Hydrox/Alum Hydrox 30 Ml Oral.Susp) 15 ml PO Q4H PRN PRN Reason: heart burn Benzocaine (Throat Lozenge, Medicated Lozenge) 1 lozenge MUCOUS MEM Q2H PRN PRN Reason: Sore Throat Last Admin: 06/04/23 00:53 Dose: 1 lozenge Documented By: LYSZ Estradiol (Estradiol 0.5 Mg Tablet) 2 mg PO BID ANDRES Last Admin: 06/04/23 07:33 Dose: 2 mg Documented By: ANDREI Guaifenesin/Dextromethorphan (Guaifenesin Dm 100/10/5 Ml 5 Ml Syrup) 10 ml PO Q6H PRN PRN Reason: cough Piperacillin Sod/Tazobactam (Sod 3.375 gm/ Sodium Chloride) 50 mls @ 100 mls/hr IV Q6H REPLACED BY [facility] Last Infusion: 06/04/23 07:28 Dose: Infused Documented By: ANDREI Dextrose/Lactated Ringer's (D5lr) 1,000 mls @ 125 mls/hr IVCONT .Q8H REPLACED BY [facility] Last Infusion: 06/04/23 06:46 Dose: 0 mls/hr Documented By: ROSALVA Ketorolac Tromethamine (Ketorolac Tromethamine 15 Mg/Ml Vial) 15 mg IVPUSH Q6H PRN PRN Reason: Pain, Moderate(Pain Scale 4-6) Last Admin: 06/04/23 07:32 Dose: 15 mg Documented By: ANDREI Melatonin (Melatonin 3 Mg Tablet) 3 mg PO BEDTIME PRN PRN Reason: Insomnia Ondansetron HCl (Ondansetron Hcl 4 Mg/2 Ml Vial) 4 mg IVPUSH Q8H PRN PRN Reason: Nausea and Vomiting Last Admin: 06/04/23 06:33 Dose: 4 mg Documented By: ROSALVA Sodium Chloride (0.9 % Sodium Chloride Flush 3 Ml Syringe) 3 ml IVFLUSH QSHIFT REPLACED BY [facility] Last Admin: 06/04/23 07:35 Dose: Not Given Documented By: ANDREI Non-Admin Reason: IV Running Spironolactone (Spironolactone 25 Mg Tablet) 100 mg PO BID REPLACED BY [facility]; Protocol Labs 06/04/23 07:23 06/04/23 07:23 Labs: Laboratory Results - last 24 hr 06/03/23 06/03/23 06/04/23 11:02 22:55 07:23 MCV 88.3 MCH 30.6 MCHC 34.7 RDW 13.2 Plt Count 192 MPV 9.7 Absolute Nucleated RBC 0.000 Nucleated RBC % (auto) 0.0 Anion Gap 10 L Estim Creat Clear Calc 144.8 Estimated GFR > 60 Random Glucose 122 H Calcium 9.5 D C-Reactive Protein 11.97 H C-React Prot High Sens Cancelled Urine Color Yellow Urine Appearance Clear Urine pH 6.5 Ur Specific Musella 1.025 Urine Protein Negative Urine Glucose (UA) >=1000 H Urine Ketones Negative Urine Blood Negative Urine Nitrite Negative Ur Leukocyte Esterase Negative Urine RBC 0-2 Urine WBC 0-5 Ur Squamous Epith Cells 0-2 Urine Bacteria None Seen Hyaline Casts 0-2 Assessment and Plan (1) Acute tonsillitis: Status: Acute (2) Sepsis: Status: Acute Plan 17-year-old transgender male to female presented to ER with 2-3 days history of sore throat fever, body aches chills decreased by mouth intake with nausea vomiting diagnosed to have bilateral acute tonsillitis with elevated WBC count and CRP patient be admitted to [facility] with a diagnosis of sepsis due to acute tonsillitis. Sepsis due to acute tonsillitis Less sore throat but continued to have generalized body ache, bilateral chest discomfort with deep breathing, continue IV fluid, IV Zosyn, cough medication, lozenges Encourage saltwater gargles, continue IV analgesics No recurrent fevers tachypnea tachycardia resolved EKG obtained due to complaint of chest pain showed no acute ischemic changes WBC trending down blood cultures pending Normal lactic acid follow final blood cultures, follow CBC and CRP Reassured patient on full liquid diet, will advance to regular Male to female transgender Continue estrogen, and spironolactone Code status full code DVT prophylaxis early ambulation In my clinical judgment patient need continued hospitalization due to sepsis requiring IV antibiotics, IV fluids and close clinical follow-up. Time Spent With Patient Time: Total time managing care of this patient today ____ minutes. Quality Stroke Does the patient have a stroke diagnosis?: No VTE Prior VTE?: No VTE Risk Level:: Medical - low VTE Device Contraindication: Treatment Not Indicated VTE Drug Contraindication: Treatment Not Indicated
[2023-06-04 13:27] LABS: Amphetamine Screen Urine Not Detected (Not Detect); Barbiturates, Urine Not Detected (Not Detect); Benzodiazepines Screen Urine Not Detected (Not Detect); Cannabinoid Screen Urine POSITIVE (Not Detect); Cocaine Screen Urine Not Detected (Not Detect); Fentanyl, urine Not Detected (Not Detect); Opiate Screen Urine Not Detected (Not Detect); Phencyclidine Screen Urine Not Detected (Not Detect)
[2023-06-04] MEDS: Magnesium Hydrox/Alum Hydrox 30 ML ORAL.SUSP 15 ML PO (13:38)
[2023-06-04 15:31] VITALS: BP 129/61; PULSE 62; RESP 18; TEMP 36.6; O2SAT 98
--- NOTE | 2023-06-04 15:38 | PC.NURSE ---
Pt has had numerous c/o general body aches including a chest pain/pressure also some nausea. Vitals are stable. ekg normal. Tried toradol, tylenol. malax, zofran. Pt states none of these meds have helped her discomfort. Encouraged pt to ambulate, but she was very tense and shaky. She ambulated with a walker and contact guard. Pt was made a high fall risk as I felt she could crumple to the floor. Dr Brower was updated.
[2023-06-04] MEDS: 0.9 % Sodium Chloride Flush 3 ML SYRINGE IVFLUSH (16:32)
[2023-06-04 18:51] VITALS: BP 111/65; PULSE 88; RESP 18; TEMP 36.7; O2SAT 98
[2023-06-04] MEDS: LORazepam 2 MG/ML VIAL 1 MG IVPUSH (20:22)
[2023-06-04] MEDS: Lidocaine 4 % Patch ADH..PATCH 1 PATCH TRANSDERMA (20:31)
[2023-06-04] MEDS: oxyCODONE HCl Immed Release 5 MG TABLET PO (20:45)
[2023-06-04] MEDS: Spironolactone 25 MG TABLET 100 MG PO (20:47)
[2023-06-04 23:29] VITALS: BP 103/60; PULSE 52; RESP 16; TEMP 36.2; O2SAT 99
[2023-06-05] MEDS: Ketorolac Tromethamine 15 MG/ML VIAL IVPUSH
[2023-06-05] MEDS: ondansetron HCL 4 MG/2 ML VIAL IVPUSH (00:03)
[2023-06-05] MEDS: Piperacillin Sodium/Tazobactam 3.375 GM in 0.9 % Sodium Chloride 50 ML IV ×3 (00:03→11:58)
--- NOTE | 2023-06-05 03:01 | PC.NURSE ---
Late entry. Yesterday around 20:00 patient started shaking, yelling/crying of pain to back, neck,hips, abd and chest. Had a similar episode in AM, all cardiac work up was negative. VS taken and stable, Dr Parra at bedside to evaluate. Lidocaine patch applied to lower back, Ativan and Oxycodone administered, abd US ordered and per MD it is ok to be performed today. Patient responded very quickly to mentioned therapy, became relaxed, stated relief in pain and was pleasantly conversing about being a bit humiliated regarding earlier behavior. At this time no further complaints.
[2023-06-05 06:31] LABS: Hematocrit 30.8 % (42.0-52.0); Hemoglobin 10.4 g/dl (14.0-18.0); Mean Corpuscular HGB Conc 33.8 g/dl (31.0-36.0); Mean Corpuscular Hemoglobin 30.3 pg (27.0-33.0); Mean Corpuscular Volume 89.8 fL (80.0-98.0); Platelet Count 183 X10*3/uL (160-400); Red Blood Count 3.43 X10*6/uL (4.60-5.80); Red Cell Distribution Width 13.2 % (11.0-16.0); White Blood Count 13.5 X10*3/uL (4.8-10.8)
[2023-06-05] MEDS: Dextrose 5 % and Lactated Ring 1,000 ML 125 ML IVCONT (06:42)
[2023-06-05 06:47] LABS: Anion Gap 8 (12-20); Blood Urea Nitrogen 9 mg/dL (9-16); Carbon Dioxide 23 mmol/L (22-29); Chloride 110 mmol/L (96-108); Estimated Glomerular Filt Rate > 60; Glucose Random 119 mg/dL (60-115); Potassium 3.7 mmol/L (3.3-5.1); Sodium 137 mmol/L (135-145)
[2023-06-05] MEDS: Cyclobenzaprine HCl 5 MG TABLET PO (10:26)
[2023-06-05] MEDS: estradioL 0.5 MG TABLET 2 MG PO (10:26)
[2023-06-05] MEDS: Spironolactone 25 MG TABLET 100 MG PO (10:26)
[2023-06-05] MEDS: Ketorolac Tromethamine 30 MG/ML VIAL IVPUSH (11:58)
[2023-06-05] MEDS: Throat Lozenge, Medicated LOZENGE 1 LOZENGE MUCOUS MEM (12:07)
[2023-06-05 13:32] LABS: Hematocrit 32.1 % (42.0-52.0); Hemoglobin 10.7 g/dl (14.0-18.0); Mean Corpuscular HGB Conc 33.3 g/dl (31.0-36.0); Mean Corpuscular Hemoglobin 30.3 pg (27.0-33.0); Mean Corpuscular Volume 90.9 fL (80.0-98.0); Mean Platelet Volume 9.9 fL (9.4-12.4); Platelet Count 188 X10*3/uL (160-400); Red Blood Count 3.53 X10*6/uL (4.60-5.80); Red Cell Distribution Width 13.4 % (11.0-16.0); White Blood Count 15.2 X10*3/uL (4.8-10.8)
[2023-06-05 14:02] VITALS: BP 119/72; PULSE 75; RESP 18; TEMP 36.7; O2SAT 99
--- NOTE | 2023-06-05 14:31 | MHC.CM.PN ---
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
--- NOTE | 2023-06-05 15:05 | PM.DS ---
DS: Providers Provider Date of Service: 06/05/23 Date of admission: 06/03/23 18:19 Primary care physician: Lotus Cadena APRN DS: Diagnosis Discharge Diagnosis (1) Acute tonsillitis: Status: Acute (2) Sepsis: Status: Acute DS: Summary Hospital Course Hospital Course: History of presenting illness. Date of Service: 06/03/23 Chief Complaint: Generalized body aches/sore throat 17-year-old transgender male to female presented to [facility] on 06/02 due to generalized body ache, nausea vomiting, joint pain nasal congestion and cough with sore throat, patient was treated with antiemetics, analgesics and was discharged home with diagnosis of acute nausea and vomiting question related to cannabis, patient return back to [facility] today, due to fever chills, generalized body ache worsened neck back chest and stomach with decreased by mouth intake x3 days, unable to swallow and keep food down , no bowel movement in 2 days, decreased urination related to decreased by mouth intake, patient co-worker was sick with loss of taste and smell, denies recent history of travel, denies IV drug use, no recent steroid use, denies urinary urgency frequency, currently receiving hormonal therapy and spironolactone in the emergency room patient noted to have an elevated WBC count 35.9 , stable hematocrit and renal function sodium 133, strep pyogenes negative, COVID negative, CTA chest showed no evidence of PE, no acute process in the chest, soft tissue neck CT showed bilateral palatine tonsillitis no peritonsillar abscess, there were multiple and large jugulodigastric and jugular chain lymphadenopathy, there was a 2.2 cm out nodule in the posterior left parapharyngeal space likely and large lateral retropharyngeal lymph node, radiologist recommend follow-up once acute course resolved to exclude underlying mass lesion, patient in the a noted to be tachycardia, tachypneic febrile treated with IV Zosyn IV fluid and IV morphine and now being admitted to [facility] with a diagnosis of sepsis due to acute tonsillitis. Hospital course: 17-year-old transgender male to female presented to ER with 2-3 days history of sore throat fever, body aches chills decreased by mouth intake with nausea, vomiting, diagnosed to have bilateral acute tonsillitis with elevated WBC count and CRP patient admitted to [facility] with a diagnosis of sepsis due to acute tonsillitis, placed on IV fluids, IV Zosyn, cough medications ,she responded well to above treatment fever, tachpnea,and tachycardia resolved, patient complained of chest pain localized to bilateral ribs worse with breathing, due to recurrent complaints of chest pain EKG obtained that showed no acute ischemic changes ,patient was reassured that it is musculoskeletal chest discomfort, treated with IV Toradol , Tylenol, subsequently patient complained of lower abdominal discomfort with radiation to back, therefore a scrotal ultrasound was obtained that was unremarkable, patient treated with lidocaine patch, Flexeril, anxiolytics with no response, later she complained of lower back discomfort with radiation to upper back, explained to patient that all of her symptoms are musculoskeletal also likely contributed by estrogen since patient admitted of having pain at home, treated with Toradol with good affect, Since patient is tolerating diet, with no recurrent fevers, no chills ,no sore throat, no joint pains therefore she is being discharged home to finish a total 10 day course of antibiotics, she has been recommend to drink plenty of fluids, take Tylenol and ibuprofen as needed for pain, during course of hospitalization patient underwent significant imaging studies including head CT, chest CTA, scrotal ultrasound and chest x-ray, CTA chest results as above otherwise all studies were unremarkable. Male to female transgender Continue estrogen, and spironolactone Time Spent with Patient Time attestation: Total time managing care of this patient today ____ minutes. Discharge coordination time: Greater than 30 minutes Quality: Safe Use of Opioids Does Pt have an Active Cancer Diagnosis on the Problem List?: No Quality: Stroke Does the patient have a stroke diagnosis?: No Physical Exam Vital Signs: Vital Signs: Last Vital Signs Temp 98.0 F 06/05/23 14:02 Pulse 75 06/05/23 14:02 Resp 18 06/05/23 14:02 BP 119/72 06/05/23 14:02 Pulse Ox 99 06/05/23 14:02 O2 Del Method Room Air 06/05/23 14:02 BMI result Body Mass Index 23.4 Const: Other: General awake alert x3, in no acute distress Oral mucosa moist, tonsillar enlargement improving. Neck palpable rt. submandibular lymph nodes nontender, CVS regular rate rhythm, Respiratory lungs clear to auscultation, no respiratory distress, no wheeze, no rhonchi. Gastrointestinal abdomen soft, non tender, bowel sounds audible, no guarding , no rigidity. Extremities no edema. Neuro non focal Skin no rash Psych appropriate affect DS: Data Data Completed and Pending Labs on day of discharge: Laboratory Results - last 24 hr 06/05/23 06/05/23 06:09 13:25 WBC 13.5 H 15.2 H RBC 3.43 L 3.53 L Hgb 10.4 L 10.7 L Hct 30.8 L 32.1 L MCV 89.8 90.9 MCH 30.3 30.3 MCHC 33.8 33.3 RDW 13.2 13.4 Plt Count 183 188 MPV 10.0 9.9 Absolute Nucleated RBC 0.000 0.000 Nucleated RBC % (auto) 0.0 0.0 Sodium 137 Potassium 3.7 Chloride 110 H Carbon Dioxide 23 Anion Gap 8 L BUN 9 Creatinine 0.76 Estim Creat Clear Calc 141.0 Estimated GFR > 60 Random Glucose 119 H Calcium 9.0 Preliminary micro results at discharge 06/03/23 11:02 Blood Culture - Preliminary Blood - Venous No growth after 48 hours. 06/03/23 10:36 Blood Culture - Preliminary Blood - Venous No growth after 24 hours. Discharge Plan Discharge Anticipated Discharge Date/Time: 06/05/23 14:15 Patient Disposition: Home, Self-Care Discharge Diagnosis: Sepsis due to acute tonsillitis Referrals: Lotus Cadena APRN [Primary Care Provider] - 1 Week Discharge Medications: New amoxicillin-pot clavulanate 875-125 mg Tablet 1 tab PO Q12H Qty: 14 0RF Continued spironolactone 100 mg tablet 100 mg PO BID estradiol 2 mg tablet 2 mg PO BID Discharge Orders: Discharge Order (Routine); Ordered 06/05/23 Ordered By: Mayte Brower Diet: Advance to usual diet Activity on Discharge: As tolerated Stand Alone Forms: Patient Portal Discharge page Care Plan Goals: Take antibiotics with food as prescribed x 7 days notify pcp with worsening diarrhea Drink plenty of fluids Take Tylenol 500-1000 mg every 8 hours as needed or /ibuprofen 400 mg q.6 hours as needed with food for pain control Health Concerns: Continue home medications as before Plan of Treatment: Follow-up appointment with primary care physician in next 1-2 weeks call for appointment Assessment: As above
[2023-06-05] MEDS: Amoxicillin/Potassium Clav 875 MG TABLET PO (15:11)
[2023-06-05 15:22] LABS: C Reactive Protein 7.04 mg/dL (< or = 0.50)
--- NOTE | 2023-06-05 15:34 | PC.NURSE ---
Patient complaining of 10/10 pain to back, hips, shoulders, abdomen and chests. Dr. Brower in to assess patient. Pain appears to be muscular. Muscle relaxer and increased dose of toradol given. Patient report some relief 8/10 to back pain, but rest of pain still 10. Patient unable to sit up straight in bed with help from Dr. Brower and this RN. When Dr. Brower left the room, patient was able to sit forward unassisted to show me where her lidoderm patch was located on her lower back. Patient was able to eat 50% of lunch. WBC 15.2. Patient s.o. came out to [place] to report patient had severe chest pain. Upon arrival to patient's room, this RN found patient laying in bed in no distress talking to Demarco the patient advocate. Vitals stable. Patient reports pain feels cool and midsternal. Dr. Brower notified. Returned to bereavement counselor patient. Patient agreeable to discharge. Able to take PO augmentin prior to d/c.
[2023-06-08 01:23] LABS: C. Trachomatis RNA TMA, Throat NOT DETECTED; N. gonorrhoeae RNA TMA, Throat DETECTED
== END 2023-06-05 15:17 | disposition home health service (06) | DRG 720 ==
LOC: HO.ED 16:33 → HO.EDOVER 18:56 → HO.S3 19:22
PROVIDERS: Internal Medicine; Physician Assistant Medical; Admitting Provider Hospitalist; Emergency Provider Emergency Medicine; PCP Nurse Practitioner Pediatrics; Visit Provider Hospitalist
DX: A41.9 Sepsis, unspecified organism (principal); F64.0 Transsexualism; J03.90 Acute tonsillitis, unspecified; Z20.822 Contact with and (suspected) exposure to COVID-19; Z79.899 Other long term (current) drug therapy
CPT/HCPCS: 36415; 70450; 70491; 71275; 74177; 76870; 80048; 80053; 80307; 81001; 81003; 83605; 83690; 83735; 84484; 85007; 85027; 85652; 86140; 86141; 86308; 87040; 87491; 87502; 87591; 87635; 87651; 93005; 99285; J1100; J1200; J1885; J2060; J2270; J2405; J2543; J2765; Q9967

== ENCOUNTER → 2023-06-03 18:19 | Outpatient (BNV) | payer OTHER, SELFPAY | PROVIDERS: Admitting Provider Hospitalist; Emergency Provider Emergency Medicine; PCP Nurse Practitioner Pediatrics; Visit Provider Hospitalist | DX: J03.90 Acute tonsillitis, unspecified (principal); A41.9 Sepsis, unspecified organism | CPT/HCPCS: 99223; 99233; 99239 ==

== ENCOUNTER 2023-11-27 18:20 | Emergency (ER) | payer OTHER, SELFPAY ==
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
[2023-11-27 18:28] VITALS: BP 162/106; PULSE 110; O2SAT 99
[2023-11-27 18:51] VITALS: BP 119/73; PULSE 89; RESP 20; TEMP 36.8; O2SAT 100; BMI 24.2
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
[2023-11-27] MEDS: Ibuprofen 800 MG TABLET PO (19:39)
== END 2023-11-27 19:54 | disposition home or self-care (01) ==
PROVIDERS: Emergency Provider Internal Medicine; PCP Nurse Practitioner Pediatrics
DX: S63.602A Unspecified sprain of left thumb, initial encounter (principal); M25.532 Pain in left wrist; Y04.2XXA Assault by strike against or bumped into by another person, initial encounter; Y93.9 Activity, unspecified; Y92.9 Unspecified place or not applicable; Y99.8 Other external cause status
CPT/HCPCS: 29130; 73110; 73130; 99283

== ENCOUNTER 2024-03-28 00:21 | Inpatient (IN) | payer OTHER, SELFPAY ==
[2024-03-28] VITALS (21 sets, daily range): BP systolic 90–117; BP diastolic 40–68; PULSE 55–111; RESP 16–20; TEMP 36.1–38.5; O2SAT 96–100; BMI 25.3
--- NOTE | ~2024-03-28 | CT_ITS ---
EXAMINATION: CT ABDOMEN AND PELVIS WITH CONTRAST CLINICAL INFORMATION: Diffuse abdominal pain. COMPARISON: CT abdomen pelvis 06/03/2023. TECHNIQUE: Multidetector volumetric images were obtained from the superior aspect of the liver through the pubic symphysis following administration 85 mL of Omnipaque 350 intravenous contrast. Sagittal and coronal reformatted images were obtained on the technologist's workstation. Oral contrast: No This CT examination was performed using dose optimization techniques as appropriate, variously including the following: *Automated exposure control *Adjustment of mA and/or kV according to patient size (this includes techniques or standardized protocols for targeted exams where dose is matched to indication/reason for exam; i.e. extremities or head) *Use of iterative reconstruction technique DLP: 373 mGy-cm FINDINGS: LUNG BASES: The visualized lung bases are unremarkable. LIVER, GALLBLADDER, AND BILIARY TREE: The liver is normal in size, shape, and attenuation. No focal hepatic lesion or biliary ductal dilatation is present. The gallbladder is unremarkable with no evidence of radiopaque gallstones, gallbladder wall thickening, or obvious pericholecystic inflammatory changes. PANCREAS: Unremarkable. SPLEEN: Unremarkable. ADRENAL GLANDS: Unremarkable. KIDNEYS AND URETERS: The kidneys are normal in size, shape, and attenuation. No hydronephrosis, hydroureter, or calculi seen. No perinephric stranding. BLADDER: Unremarkable. GASTROINTESTINAL TRACT: A 5 mm diameter appendicolith is present at the base of the appendix. The appendix is abnormally enlarged measuring 13 mm in diameter. No periappendiceal fluid collections identified. A 2 mm appendicolith is additionally noted within the fundus of the appendix. No free intraperitoneal fluid or gas collections identified. The terminal ileum is normal in appearance. ABDOMINAL WALL: No significant hernia is appreciated. LYMPH NODES: Normal. VASCULAR: Unremarkable. PELVIC VISCERA: Unremarkable. No abnormalities of the inguinal canals visualized. OSSEOUS STRUCTURES: Unremarkable. CT/CT abdomen pelvis w IV con IMPRESSION: Acute appendicitis. The appendix is abnormally dilated, measuring 13 mm diameter. A 5 mm appendicolith is present at the base of the appendix. No evidence of appendiceal perforation. Normal appearance of the terminal ileum. No free intraperitoneal fluid or gas collections.
--- NOTE | ~2024-03-28 | XR_ITS ---
EXAMINATION: XR CHEST CLINICAL INFORMATION: Shortness of breath. Fever. COMPARISON: CT angiography chest 06/03/2023. TECHNIQUE: Frontal view of the chest was obtained. FINDINGS: Normal appearance of the cardiomediastinal structures. No effusions or pneumothoraces. Normal pattern of pulmonary vasculature. No focal pulmonary consolidation. No skeletal abnormalities noted. XR/XR chest 1V IMPRESSION: Normal chest.
--- NOTE | 2024-03-28 00:55 | ECG_ITS ---
Test Reason : tachycardia Blood Pressure : / mmHG Vent. Rate : 111 BPM Atrial Rate : 111 BPM P-R Int : 166 ms QRS Dur : 074 ms QT Int : 330 ms P-R-T Axes : 061 081 054 degrees QTc Int : 448 ms Sinus tachycardia Otherwise normal ECG When compared with ECG of 04-JUN-2023 07:05, No significant change was found Referred By: Delilah Devine Electronically Signed By:ELIO MICHELLE
[2024-03-28 00:57] LABS: Basophils Absolute Auto 0.1 X10*3/uL (0.0-0.2); Basophils Percent Auto 0.2 % (0-2); Eosinophils Percent Auto 0.1 % (0-4); Hematocrit 36.2 % (42.0-52.0); Hemoglobin 12.7 g/dl (14.0-18.0); Imm Gran Abs Auto 0.12 X10*3/uL (0.00-0.03); Imm Gran Pct Auto 0.5 % (0.0-0.4); Lymphocytes Absolute Auto 1.7 X10*3/uL (1.2-4.9); Lymphocytes Percent Auto 6.6 % (20-40); MANUAL DIFF FLAG SCAN; Mean Corpuscular HGB Conc 35.1 g/dl (31.0-36.0); Mean Corpuscular Hemoglobin 31.4 pg (27.0-33.0); Mean Corpuscular Volume 89.6 fL (80.0-98.0); Mean Platelet Volume 9.7 fL (9.4-12.4); Monocytes Absolute Auto 1.7 X10*3/uL (0.1-1.2); Monocytes Percent Auto 6.8 % (2-11); Neutrophils Absolute Auto 21.9 x10*3/uL (2.0-8.3); Neutrophils Percent Auto 85.8 % (45-73); Platelet Count 250 X10*3/uL (160-400); Red Blood Count 4.04 X10*6/uL (4.60-5.80); Red Cell Distribution Width 12.7 % (11.0-16.0); SCAN SMEAR FLAG 1; White Blood Count 25.6 X10*3/uL (4.8-10.8)
[2024-03-28 01:16] LABS: SLIDE REVIEW VERIFIED
[2024-03-28 01:26] LABS: Lipase 23 U/L (8-78)
[2024-03-28 01:28] LABS: Alanine Aminotransferase 7 U/L (0-40); Albumin Level 4.5 g/dL (3.5-5.0); Alkaline Phosphatase 57 U/L (39-117); Anion Gap 13 (12-20); Aspartate Amino Transferase 12 U/L (5-37); Bilirubin Total 0.4 mg/dL (0.0-1.0); Blood Urea Nitrogen 11 mg/dL (9-16); Calcium 9.7 mg/dL (8.4-10.2); Carbon Dioxide 22 mmol/L (22-29); Chloride 104 mmol/L (96-108); Creatinine Clr Calc Pharmacy 129.6; Estimated Glomerular Filt Rate > 60; Glucose Random 94 mg/dL (60-115); Potassium 3.8 mmol/L (3.3-5.1); Sodium 135 mmol/L (135-145); Total Protein 7.2 g/dL (6.5-8.0)
[2024-03-28 01:32] LABS: Troponin-I High Sensitivity < 2.7 ng/L (<3.5-35.0)
[2024-03-28 01:32] LABS: Influenza A PCR NEGATIVE (Negative); Influenza B PCR NEGATIVE (Negative); Resp Syncy Virus RNA Qual PCR NEGATIVE (Negative); SARS COV2 PCR INHOUSE NEGATIVE (Negative)
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
[2024-03-28] MEDS: Ketorolac Tromethamine 30 MG/ML VIAL IVPUSH (02:28)
[2024-03-28] MEDS: ondansetron HCL 4 MG/2 ML VIAL IVPUSH (02:28)
[2024-03-28] MEDS: Acetaminophen 325 MG TABLET 950 MG PO (02:31)
[2024-03-28] MEDS: 0.9 % Sodium Chloride 2,500 ML 999 ML IVCONT (02:36)
[2024-03-28 02:53] LABS: Lactic Acid 1.1 mmol/L (0.5-2.0)
[2024-03-28 02:56] LABS: IDNOW Serial# 08D9AD1C; Strep A Nucleic Acid Negative (Negative)
[2024-03-28 02:56] LABS: Ethanol < 10 mg/dL
[2024-03-28 02:59] LABS: Amphetamine Screen Urine Not Detected (Not Detect); Barbiturates, Urine Not Detected (Not Detect); Benzodiazepines Screen Urine Not Detected (Not Detect); Buprenorphine Scr Not Detected (Not Detect); Cannabinoid Screen Urine POSITIVE (Not Detect); Cocaine Screen Urine Not Detected (Not Detect); Fentanyl, urine Not Detected (Not Detect); Methadone Screen, Urine Not Detected (Not Detect); Opiate Screen Urine Not Detected (Not Detect); Oxycodone Screen Urine Not Detected (Not Detect); Phencyclidine Screen Urine Not Detected (Not Detect)
[2024-03-28] MEDS: iohexoL 350 MG/ML 100 ML INFUS..BTL 85 ML IV (03:02)
[2024-03-28 03:38] LABS: CT PCR NOT DETECTED (Not Detect.); NG PCR NOT DETECTED (Not Detect.)
[2024-03-28] MEDS: Morphine Sulfate 4 MG/ML CARTRIDGE IVPUSH ×3 (03:42→09:28)
[2024-03-28] MEDS: Piperacillin Sodium/Tazobactam 3.375 GM in 0.9 % Sodium Chloride 50 ML IV ×3 (04:09→16:06)
--- NOTE | 2024-03-28 04:11 | PC.NURSE ---
Medicate per mar, pt will be NPO at this time.
--- NOTE | 2024-03-28 06:52 | PC.NURSE ---
blood pressure 98/54 Dr. Hutchison
--- NOTE | 2024-03-28 07:13 | PC.NURSE ---
Resumed care of pt at 0700. Pt resting in bed quietly, respirations even and unlabored. Pt aware of NPO status, surgery at bedside, pt aware of ongoing plan of care.
[2024-03-28] MEDS: Lactated Ringers 1,000 ML 80 ML IVCONT ×2 (08:07→21:32)
--- NOTE | 2024-03-28 08:12 | PM.HPGS ---
History of Present Illness History of Present Illness Date of Service: 03/28/24 Chief complaint: abdominal pain/N/V Narrative: Jessica Chen is a 18 year old transgender female (XY) presenting with complaints of abdominal pain in the right lower quadrant. The pain began approximately 15:00 yesterday and was associated with nausea, vomiting, fever and chills. She denies a previous history of similar abdominal pain. The pain seemed to increase in severity with movement. She subsequently presented to the emergency department and was noted to have tenderness in the right lower quadrant over McBurney's point. Workup revealed an elevated WBC of [address] abdomen and pelvis revealed a distended appendix with a fecalith consistent with acute appendicitis. She has admitted to the surgical service for further management of acute appendicitis. Review of Systems Review of Systems: Yes all other systems are reviewed and are negative Constitutional: Constitutional: Reports chills, Reports fever(s), Denies headache(s), Reports poor appetite and Denies weakness ENT: Denies headache(s) Cardiovascular: Cardiovascular: Denies chest pain, Denies irregular heart rhythm, Denies palpitations and Denies dyspnea Respiratory: Respiratory: Denies cough, Denies excessive phlegm production and Denies dyspnea Gastrointestinal: Gastrointestinal: Reports abdominal pain, Denies bloating, Denies change in bowel habits, Denies constipation, Denies heartburn, Denies diarrhea, Reports nausea and Reports vomiting Genitourinary: Genitourinary: Denies difficulty urinating and Denies urinary frequency Musculoskeletal: Musculoskeletal: Denies back pain, Denies muscle weakness and Denies numbness Integumentary/Breasts: Skin/Breast: Denies changing lesions and Denies unusual bruising Neurologic: Denies headache(s), Denies numbness, Denies paresthesias and Denies weakness Psychiatric: Psychiatric: Denies anxiety and Denies depression Endocrine: Endocrine: Denies palpitations Hematologic/Lymphatic: Hematologic/Lymphatic: Denies lymphadenopathy [facility] Social History Social History Household Members: Significant Other Housing: Apartment Do you presently have visiting nurse or other home services: No Patient Tobacco Use Status: Never used Tobacco Smoked in Last 30 Days: No Use of substances other than those prescribed or required for medical reasons: Yes Substance Use Type: Marijuana Substance Use Frequency: Occasionally Advance Directives: No Advance Directives Information Provided: Yes service: No Meds Allergies Allergy/AdvReac Type Severity Reaction Status Date / Time strawberry Allergy Rash Verified 03/28/24 00:44 peanut AdvReac Difficulty Verified 03/28/24 00:44 Breathing Active Medications: Current Medications Piperacillin Sod/Tazobactam (Sod 3.375 gm/ Sodium Chloride) 50 mls @ 100 mls/hr IV Q6H ANDRES Lactated Ringer's (Lr) 1,000 mls @ 80 mls/hr IVCONT .[id number] ANDRES Last Admin: 03/28/24 08:07 Dose: 80 mls/hr Morphine Sulfate (Morphine Sulfate 4 Mg/Ml Cartridge) 4 mg IVPUSH Q4H PRN; Protocol PRN Reason: Pain, Severe (Pain Scale 7-10) Home Medications ?Medication ?Instructions ?Recorded ?Confirmed ?Last Taken ?Type estradiol 2 mg tablet 2 mg PO BID 06/03/23 06/03/23 06/03/23 History spironolactone 100 mg tablet 100 mg PO BID 06/03/23 03/28/24 03/27/24 History estradiol cypionate 5 mg/mL 5 mg IM QWEEK 03/28/24 03/28/24 03/28/24 06:27 History intramuscular oil (Depo-Estradiol) Physical Exam Vital Signs: Vital Signs: Last Vital Signs Temp 98.2 F 03/28/24 06:22 Pulse 77 03/28/24 06:22 Resp 18 03/28/24 07:24 BP 94/54 L 03/28/24 06:22 Pulse Ox 97 03/28/24 06:22 O2 Del Method Room Air 03/28/24 06:22 BMI result Body Mass Index 25.3 Const: General: cooperative and no acute distress Nutritional Appearance: well nourished Orientation/consciousness: patient oriented x3 Limitations: no limitations HEENT: Head: Yes normocephalic and Yes atraumatic Ears: hearing grossly normal bilaterally Resp: Effort & Inspection: normal respiratory effort, no audible wheezes, no cough and no respiratory distress Cardio: Jugular venous distension: no JVD GI: Inspection: Yes normal to inspection Palpation (GI): Soft to palpation, Tenderness to palpation present (GI) in the RUQ, at McBurney's point and Rovsing's sign positive, no guarding and not rigid Percussion: Yes normal to percussion Auscultation: normal bowel sounds Rectal Exam - Male: Yes deferred Skin: Other: Warm, dry, no rash Neuro: General: patient oriented x3 Extrem: General: Yes no clubbing, cyanosis or edema Results Results Labs: Short CBC 03/28/24 Range/Units 00:51 WBC 25.6 H (4.8-10.8) X10*3/uL Hgb 12.7 L (14.0-18.0) g/dl Hct 36.2 L (42.0-52.0) % Plt Count 250 D (160-400) X10*3/uL BMP 03/28/24 00:51 Sodium 135 Potassium 3.8 Chloride 104 Carbon Dioxide 22 BUN 11 Creatinine 0.82 Calcium 9.7 D Liver Function 03/28/24 Range/Units 00:51 Total Bilirubin 0.4 (0.0-1.0) mg/dL AST 12 (5-37) U/L ALT 7 (0-40) U/L Alkaline Phosphatase 57 (39-117) U/L Albumin 4.5 (3.5-5.0) g/dL Abdomen CT scan report/results: image reviewed CT scan - pelvis: image reviewed (Images reviewed and confirmed acute appendicitis with fecalith.) Assessment and Plan (1) Acute appendicitis: Qualifiers: Acute appendicitis type: with localized peritonitis Appendicitis gangrene presence: unspecified whether gangrene present Appendicitis perforation presence: without perforation Appendicitis abscess presence: without abscess Qualified Code(s): K35.30 - Acute appendicitis with localized peritonitis, without perforation or gangrene Status: Acute Plan 18-year-old transgender female presenting with complaints of abdominal pain in the right lower quadrant. On examination the patient is tender in the right lower quadrant over McBurney's point. Workup revealed an elevated WBC and CT findings consistent with acute appendicitis. I reviewed the procedure, risks and alternatives of laparoscopic or possible open appendectomy. She consents to the procedure and has been added onto the operative schedule for today. Quality Stroke Does the patient have a stroke diagnosis?: No VTE Prior VTE?: No VTE Risk Level:: Surgical - low VTE Device Contraindication: N/A - Device Ordered VTE Drug Contraindication: Treatment Not Indicated Procedures Date of Service Date of Service: 03/28/24
--- NOTE | 2024-03-28 08:24 | PHA.MEDREC ---
Pharmacy Consult ? Medication Reconciliation Pharmacy has completed the medication reconciliation.Spoke to patient to confirm med list. Patient says she takes Depo Estradiol 5 mg q Tuesday. Patient states she didn't have he dose today.
--- NOTE | 2024-03-28 08:26 | PM.HPGS ---
History of Present Illness History of Present Illness Date of Service: 03/28/24 Chief complaint: abdominal pain/N/V Narrative: Torsten Chen is a 18 year old male who presents with a proximally 1 day history of progressively worsening abdominal pain. This initially started periumbilically and now relocated to the right lower quadrant. Because of progression of symptoms, patient presents to the ER for further evaluation. Workup was most noteworthy for significant leukocytosis of 25, and a CT scan consistent with appendicitis. Chart was reviewed and patient evaluated PMF Social History Social History Household Members: Significant Other Housing: Apartment Do you presently have visiting nurse or other home services: No Patient Tobacco Use Status: Never used Tobacco Smoked in Last 30 Days: No Use of substances other than those prescribed or required for medical reasons: Yes Substance Use Type: Marijuana Substance Use Frequency: Occasionally Advance Directives: No Advance Directives Information Provided: Yes service: No Meds Allergies Allergy/AdvReac Type Severity Reaction Status Date / Time strawberry Allergy Rash Verified 03/28/24 00:44 peanut AdvReac Difficulty Verified 03/28/24 00:44 Breathing Active Medications: Current Medications Piperacillin Sod/Tazobactam (Sod 3.375 gm/ Sodium Chloride) 50 mls @ 100 mls/hr IV Q6H ANDRES Lactated Ringer's (Lr) 1,000 mls @ 80 mls/hr IVCONT .[id number] ANDRES Last Admin: 03/28/24 08:07 Dose: 80 mls/hr Morphine Sulfate (Morphine Sulfate 4 Mg/Ml Cartridge) 4 mg IVPUSH Q4H PRN; Protocol PRN Reason: Pain, Severe (Pain Scale 7-10) Home Medications ?Medication ?Instructions ?Recorded ?Confirmed ?Last Taken ?Type spironolactone 100 mg tablet 100 mg PO BID 06/03/23 03/28/24 03/27/24 History estradiol cypionate 5 mg/mL 5 mg IM WE 03/28/24 03/28/24 03/21/24 History intramuscular oil (Depo-Estradiol) Physical Exam Vital Signs: Vital Signs: Last Vital Signs Temp 98.2 F 03/28/24 06:22 Pulse 77 03/28/24 06:22 Resp 18 03/28/24 07:24 BP 94/54 L 03/28/24 06:22 Pulse Ox 97 03/28/24 06:22 O2 Del Method Room Air 03/28/24 06:22 BMI result Body Mass Index 25.3 Chest: Other: Chest breath sounds bilaterally, HS 1 in 2 GI: Other: Abdomen mildly corpulent, marked right lower quadrant localized rebound tenderness. Remainder nerve abdomen benign Results Results Labs: Short CBC 03/28/24 Range/Units 00:51 WBC 25.6 H (4.8-10.8) X10*3/uL Hgb 12.7 L (14.0-18.0) g/dl Hct 36.2 L (42.0-52.0) % Plt Count 250 D (160-400) X10*3/uL BMP 03/28/24 00:51 Sodium 135 Potassium 3.8 Chloride 104 Carbon Dioxide 22 BUN 11 Creatinine 0.82 Calcium 9.7 D Liver Function 03/28/24 Range/Units 00:51 Total Bilirubin 0.4 (0.0-1.0) mg/dL AST 12 (5-37) U/L ALT 7 (0-40) U/L Alkaline Phosphatase 57 (39-117) U/L Albumin 4.5 (3.5-5.0) g/dL Assessment and Plan (1) Acute appendicitis: Qualifiers: Acute appendicitis type: with localized peritonitis Appendicitis abscess presence: without abscess Appendicitis gangrene presence: unspecified whether gangrene present Appendicitis perforation presence: without perforation Qualified Code(s): K35.30 - Acute appendicitis with localized peritonitis, without perforation or gangrene Status: Acute (2) Leukocytosis: Status: Acute Plan Risks, benefits, alternatives laparoscopic possible open appendectomy were reviewed with the patient and his significant other who was also present which included but not limited to bleeding, infection, numbness, pain, scarring, bowel or bladder injury and the patient wishes to proceed. All questions answered. Consent signed. Patient will be put on a abdomen is scheduled for today. Quality Stroke Does the patient have a stroke diagnosis?: No VTE Prior VTE?: No VTE Risk Level:: Surgical - low VTE Device Contraindication: N/A - Device Ordered VTE Drug Contraindication: Treatment Not Indicated Procedures Date of Service Date of Service: 03/28/24
--- NOTE | 2024-03-28 14:02 | P.CONAN_ITS ---
[facility] Active Problems Active Problems: All Active Problems Acute appendicitis (Acute) Acute tonsillitis (Acute) Leukocytosis (Acute) Family History Family history of problems with anesthesia: No Surgical History History of Problems with Anesthesia: No Social History Social History Household Members: Significant Other Housing: Apartment Do you presently have visiting nurse or other home services: No Patient Tobacco Use Status: Never used Tobacco Smoked in Last 30 Days: No Use of substances other than those prescribed or required for medical reasons: Yes Substance Use Type: Marijuana Substance Use Type Other:: every other day Substance Use Frequency: Occasionally Are you DNR?: No Advance Directives: No Advance Directives Information Provided: Yes service: No Meds Allergies Allergy/AdvReac Type Severity Reaction Status Date / Time strawberry Allergy Rash Verified 03/28/24 00:44 peanut AdvReac Difficulty Verified 03/28/24 00:44 Breathing Active Medications: Current Medications Piperacillin Sod/Tazobactam (Sod 3.375 gm/ Sodium Chloride) 50 mls @ 100 mls/hr IV Q6H [facility] Last Infusion: 03/28/24 10:05 Dose: Infused Lactated Ringer's (Lr) 1,000 mls @ 80 mls/hr IVCONT .[id number] [facility] Last Admin: 03/28/24 08:07 Dose: 80 mls/hr Morphine Sulfate (Morphine Sulfate 2 Mg/Ml Cartridge) 4 mg IVPUSH Q4H PRN; Protocol PRN Reason: Pain, Severe (Pain Scale 7-10) Home Medications ?Medication ?Instructions ?Recorded ?Confirmed ?Last Taken ?Type spironolactone 100 mg tablet 100 mg PO BID 06/03/23 03/28/24 03/27/24 History estradiol cypionate 5 mg/mL 5 mg IM WE 03/28/24 03/28/24 03/21/24 History intramuscular oil (Depo-Estradiol) Exam Height,Weight and Vital Signs: Height 5 ft 6 in Weight 71.178 kg Last Vital Signs Temp 97.8 F 03/28/24 13:27 Pulse 72 03/28/24 13:27 Resp 18 03/28/24 13:27 BP 107/54 L 03/28/24 13:27 Pulse Ox 100 03/28/24 13:27 O2 Del Method Room Air 03/28/24 13:27 Pertinent Lab Results Pertinent Lab Results: Laboratory Tests 03/28/24 03/28/24 03/28/24 00:51 01:06 01:50 WBC 25.6 H RBC 4.04 L Hgb 12.7 L Hct 36.2 L MCV 89.6 MCH 31.4 MCHC 35.1 RDW 12.7 Plt Count 250 D MPV 9.7 Immature Gran % (Auto) 0.5 H Neut % (Auto) 85.8 H Lymph % (Auto) 6.6 L [place] % (Auto) 6.8 Eos % (Auto) 0.1 Baso % (Auto) 0.2 Lymph # (Auto) 1.7 [place] # (Auto) 1.7 H Eos # (Auto) 0.0 Baso # (Auto) 0.1 Abs Immat Gran (auto) 0.12 H Absolute Neuts (auto) 21.9 H Absolute Nucleated RBC 0.000 Nucleated RBC % (auto) 0.0 Smear Tech's Comments VERIFIED Sodium 135 Potassium 3.8 Chloride 104 Carbon Dioxide 22 Anion Gap 13 BUN 11 Creatinine 0.82 Estim Creat Clear Calc 129.6 Estimated GFR > 60 Random Glucose 94 Lactic Acid Calcium 9.7 D Total Bilirubin 0.4 AST 12 ALT 7 Alkaline Phosphatase 57 Troponin I High Sens < 2.7 Total Protein 7.2 Albumin 4.5 Lipase 23 Urine Opiates Screen Ur Buprenorphine Scrn Ur Oxycodone Screen Urine Methadone Screen Urine Fentanyl Screen Ur Barbiturates Screen Ur Phencyclidine Scrn Ur Amphetamines Screen U Benzodiazepines Scrn Urine Cocaine Screen U Marijuana (THC) Screen Ethyl Alcohol Chlam trachomat DNA PCR NOT DETECTED Influenza Type A (PCR) NEGATIVE Influenza Type B (PCR) NEGATIVE N.gonorrhoeae DNA (PCR) NOT DETECTED RSV RNA Qual (PCR) NEGATIVE SARS-CoV-2 RNA (RT-PCR) NEGATIVE S. pyogenes GrpA [place] 03/28/24 03/28/24 03/28/24 02:26 02:34 02:43 WBC RBC Hgb Hct MCV MCH MCHC RDW Plt Count MPV Immature Gran % (Auto) Neut % (Auto) Lymph % (Auto) [place] % (Auto) Eos % (Auto) Baso % (Auto) Lymph # (Auto) [place] # (Auto) Eos # (Auto) Baso # (Auto) Abs Immat Gran (auto) Absolute Neuts (auto) Absolute Nucleated RBC Nucleated RBC % (auto) Smear Tech's Comments Sodium Potassium Chloride Carbon Dioxide Anion Gap BUN Creatinine Estim Creat Clear Calc Estimated GFR Random Glucose Lactic Acid 1.1 Calcium Total Bilirubin AST ALT Alkaline Phosphatase Troponin I High Sens Total Protein Albumin Lipase Urine Opiates Screen Not Detected Ur Buprenorphine Scrn Not Detected Ur Oxycodone Screen Not Detected Urine Methadone Screen Not Detected Urine Fentanyl Screen Not Detected Ur Barbiturates Screen Not Detected Ur Phencyclidine Scrn Not Detected Ur Amphetamines Screen Not Detected U Benzodiazepines Scrn Not Detected Urine Cocaine Screen Not Detected U Marijuana (THC) Screen POSITIVE H Ethyl Alcohol < 10 Chlam trachomat DNA PCR Influenza Type A (PCR) Influenza Type B (PCR) N.gonorrhoeae DNA (PCR) RSV RNA Qual (PCR) SARS-CoV-2 RNA (RT-PCR) S. pyogenes GrpA [place] Negative Airway Mallampati Class: II TM Dist: >3cm Neck ROM: Full Heart: rrr Lungs: cta Assessment and Plan Assessment Anesthesia Assessment: Anesthesia Plan Discussed and Chart Reviewed Final Anesthetic Review Family History of Problems with Anesthesia: No History of Problems with Anesthesia: No NPO: Yes ASA Class: II Final Preanesthetic Review: No Changes in Pt Med Stat, Meds/Allgs Chart Reviewed and Consent Obtained/Reviewed Patient Risk: Low Procedure Risk: Low Anesthetic Plan Anesthetic Plan: GA Disposition: Standard PACU
[2024-03-28] MEDS: Morphine Sulfate 2 MG/ML CARTRIDGE 4 MG IVPUSH ×3 (14:07→23:49)
--- NOTE | 2024-03-28 15:34 | W.PM.OPN ---
Operative Note Operative Note Date of Service: 03/28/24 Narrative: Preoperative diagnosis: Acute appendicitis Postoperative diagnosis: Same Procedure: Laparoscopic appendectomy Surgeon: Cash Breen MD Certified Drug Counselor:Tanya Avila PA-C, ANNETTE Beltrán Anesthesia: General endotracheal Indications for procedure: 18-year-old transgender female patient presenting with abdominal pain in the right lower quadrant found on workup to have acute appendicitis. Operative findings: Acute suppurative appendicitis without perforation. Surrounding phlegmon was identified. No abscess Specimen: Appendix Estimated blood loss: Less than 2 mL Complications: None Procedure details: Patient was brought to the OR and placed in a supine position. After administering general anesthesia the patient's abdomen was prepped with ChloraPrep and draped in a sterile fashion. A surgical time-out was called and consent confirmed. Patient received preoperative antibiotics and Venodyne boots were in place. Local anesthesia consisting of 0.5% Sensorcaine was infiltrated in periumbilical region. A 5 mm incision was made below the umbilicus and carried down through subcutaneous tissue. A Veress needle was then inserted while elevating abdominal cavity with towel clips. After a positive drop test the abdomen was insufflated to a pressure of 15 mm of mercury. The Veress needle was removed and a 5 mm trocar inserted. The camera was then inserted in the abdomen explored. A 2nd 5 mm trocars placed in the lower midline. A 12 mm trocar was then placed in the left lower quadrant. The patient was then placed in a Trendelenburg position and rotated to the left. The appendix was identified in the right lower quadrant and brought up using blunt dissecting clamps. The mesentery of the appendix was then divided using the LigaSure. The appendiceal artery was cauterized and divided using the LigaSure. Dissection was continued down to the base of the cecum. An Endo-DEISI stapler with a purple reload was then used to divide the appendix at the base with the cecum. The appendix was then placed in Endo-Catch bag and brought out through the left lower quadrant incision. The abdomen was then irrigated with saline solution and suctioned dry. Wounds were checked for hemostasis. CO2 was then evacuated from the abdominal cavity and all trocars removed. Fascia was closed in the left lower quadrant incision using a [id number] 0 Polysorb suture. Skin was closed at all incisions using a subcuticular 4-0 Polysorb suture. Steri-Strips 2 x 2 gauze and Tegaderm were then applied. The patient tolerated the procedure well. Sponge, instrument, needle counts reported as correct. The patient was transferred to PACU in stable condition.
[2024-03-28] MEDS: oxyCODONE HCl Immed Release 5 MG TABLET PO (17:04)
[2024-03-28] MEDS: Spironolactone 25 MG TABLET 100 MG PO (21:31)
[2024-03-28] MEDS: 0.9 % Sodium Chloride Flush 3 ML SYRINGE IVFLUSH (21:32)
[2024-03-28] MEDS: Acetaminophen 1,000 MG/100 ML PIGGYBACK 400 MG IV (21:45)
[2024-03-29 03:29] VITALS: BP 98/51; PULSE 65; RESP 16; TEMP 36.1; O2SAT 100
[2024-03-29] MEDS: Morphine Sulfate 2 MG/ML CARTRIDGE 4 MG IVPUSH ×4 (07:29→20:18)
[2024-03-29 07:50] VITALS: BP 113/61; PULSE 51; RESP 16; TEMP 36.6; O2SAT 99
[2024-03-29] MEDS: ondansetron HCL 4 MG/2 ML VIAL IVPUSH ×2 (08:36→20:18)
[2024-03-29 08:43] LABS: Basophils Percent Auto 0.2 % (0-2); Eosinophils Percent Auto 0.2 % (0-4); Hematocrit 33.8 % (42.0-52.0); Hemoglobin 11.3 g/dl (14.0-18.0); Imm Gran Abs Auto 0.06 X10*3/uL (0.00-0.03); Imm Gran Pct Auto 0.5 % (0.0-0.4); Lymphocytes Absolute Auto 1.8 X10*3/uL (1.2-4.9); Lymphocytes Percent Auto 13.6 % (20-40); MANUAL DIFF FLAG SCAN; Mean Corpuscular HGB Conc 33.4 g/dl (31.0-36.0); Mean Corpuscular Volume 92.6 fL (80.0-98.0); Mean Platelet Volume 10.1 fL (9.4-12.4); Monocytes Absolute Auto 1.6 X10*3/uL (0.1-1.2); Monocytes Percent Auto 11.7 % (2-11); Neutrophils Absolute Auto 9.8 x10*3/uL (2.0-8.3); Neutrophils Percent Auto 73.8 % (45-73); Platelet Count 201 X10*3/uL (160-400); Red Blood Count 3.65 X10*6/uL (4.60-5.80); Red Cell Distribution Width 13.1 % (11.0-16.0); SCAN SMEAR FLAG 1; White Blood Count 13.2 X10*3/uL (4.8-10.8)
[2024-03-29 09:02] LABS: SLIDE REVIEW VERIFIED
--- NOTE | 2024-03-29 09:36 | MHC.CM.PN ---
CHOSEN NAME IS WILBER, PRONOUNS ARE SHE/HER/HERS. FROM HOME ALONE. FUNCTIONALLY INDEPENDENT. DENIES USE OF DME OR SERVICES. PCP @ [facility] ON [facility] HCP COMPLETED. PATIENT NAMED MOTHER MATT [facility]. DP: HOME SELF CARE, FRIEND TO TRANSPORT. CM WILL CONTINUE TO FOLLOW.
[2024-03-29] MEDS: Lactated Ringers 1,000 ML 80 ML IVCONT ×2 (09:41→20:19)
[2024-03-29] MEDS: Spironolactone 25 MG TABLET 100 MG PO ×2 (09:42→20:12)
--- NOTE | 2024-03-29 10:25 | P.PNGS_ITS ---
Subjective Subjective Date of Service: 03/29/24 Interval history: Patient is complaining of a lot of pain says they did not sleep well last night not feeling hungry was nauseated. Is able to hold down liquids. Physical Exam 2 Vital Signs: Vital Signs: Last Vital Signs Temp 97.8 F 03/29/24 07:50 Pulse 51 03/29/24 07:50 Resp 16 03/29/24 07:50 BP 113/61 03/29/24 07:50 Pulse Ox 99 03/29/24 07:50 O2 Del Method Room Air 03/29/24 07:50 O2 Flow Rate 6 03/28/24 15:53 BMI result Body Mass Index 25.3 Const: General: cooperative GI: Other: Abdomen is very tender on the left lower quadrant also on the right side the bite feel like the exam is little dramatic. Incisions look great. Active bowel sounds are heard Objective Data Active Medications Acetaminophen (Acetaminophen 325 Mg Tablet) 650 mg PO Q6H PRN PRN Reason: Pain, Mild (Pain Scale 1-3), fever or headache Calcium Carbonate (Calcium Carbonate 750 Mg Tab.Chew) 750 mg PO Q4H PRN PRN Reason: Heartburn Lactated Ringer's (Lr) 1,000 mls @ 80 mls/hr IVCONT .[id number] [facility] Last Admin: 03/29/24 09:41 Dose: 80 mls/hr Documented By: ANNE Acetaminophen (Ofirmev) 1,000 mg in 100 mls @ 400 mls/hr IV ONCE PRN PRN Reason: Pain, Mild (Pain Scale 1-3) Last Infusion: 03/28/24 22:02 Dose: Infused Documented By: SADI Magnesium Hydroxide (Milk Of Magnesia 30 Ml Oral.Susp) 30 ml PO DAILY PRN PRN Reason: Constipation Melatonin (Melatonin 3 Mg Tablet) 6 mg PO BEDTIME PRN PRN Reason: Insomnia Morphine Sulfate (Morphine Sulfate 2 Mg/Ml Cartridge) 4 mg IVPUSH Q4H PRN; Protocol PRN Reason: Pain, Severe (Pain Scale 7-10) Last Admin: 03/29/24 07:29 Dose: 4 mg Documented By: ANNE Non-Formulary Medication (Estradiol Cypionate [Depo-Estradiol]) 5 mg IM [facility] Ondansetron HCl (Ondansetron Hcl 4 Mg/2 Ml Vial) 4 mg IVPUSH Q8H PRN PRN Reason: Nausea and Vomiting Last Admin: 03/29/24 08:36 Dose: 4 mg Documented By: ANNE Oxycodone HCl (Oxycodone Hcl Immed Release 5 Mg Tablet) 5 mg PO Q6H PRN PRN Reason: Pain, Moderate(Pain Scale 4-6) Last Admin: 03/28/24 17:04 Dose: 5 mg Documented By: ADRYAN Sodium Chloride (0.9 % Sodium Chloride Flush 3 Ml Syringe) [facility] Last Admin: 03/29/24 07:29 Dose: Not Given Documented By: ANNE Non-Admin Reason: IV Running Spironolactone (Spironolactone 25 Mg Tablet) 100 mg PO BID [facility]; Protocol Last Admin: 03/29/24 09:42 Dose: 100 mg Documented By: ANNE Labs 03/29/24 08:37 03/28/24 00:51 Labs: Laboratory Results - last 24 hr 03/29/24 08:37 MCV 92.6 MCH 31.0 MCHC 33.4 RDW 13.1 Plt Count 201 MPV 10.1 Immature Gran % (Auto) 0.5 H Neut % (Auto) 73.8 H Lymph % (Auto) 13.6 L [place] % (Auto) 11.7 H Eos % (Auto) 0.2 Baso % (Auto) 0.2 Lymph # (Auto) 1.8 [place] # (Auto) 1.6 H Eos # (Auto) 0.0 Baso # (Auto) 0.0 Abs Immat Gran (auto) 0.06 H Absolute Neuts (auto) 9.8 H Absolute Nucleated RBC 0.000 Nucleated RBC % (auto) 0.0 Smear Tech's Comments VERIFIED Microbiology Microbiology Results: Microbiology 03/28/24 02:33 Blood Culture - Preliminary Blood - Venous No growth after 24 hours. 03/28/24 02:26 Blood Culture - Preliminary Blood - Venous No growth after 24 hours. Procedures Date of Service Date of Service: 03/29/24 Progress Note: A&P Assessment and plan (1) Acute appendicitis: Status: Acute Assessment and Plan: Postop day 1 18-year-old male laparoscopic appendectomy overall doing okay. Still probably needing to be resuscitated little bit this day and hopefully should be okay to go home tomorrow. White count went down to 13 abdomen looks okay. Plan to continue IV antibiotics while in the hospital on IV convert to p.o. pain meds. Ambulate. Time Spent With Patient Time: Total time managing care of this patient today ____ minutes. Quality Stroke Does the patient have a stroke diagnosis?: No VTE Prior VTE?: No VTE Risk Level:: Surgical - low VTE Device Contraindication: N/A - Device Ordered VTE Drug Contraindication: Treatment Not Indicated
[2024-03-29 16:00] VITALS: BP 100/60; PULSE 55; RESP 16; TEMP 36; O2SAT 99
[2024-03-29] MEDS: oxyCODONE HCl Immed Release 5 MG TABLET PO ×2 (18:06→21:56)
--- NOTE | 2024-03-29 18:57 | HO.POSTANES ---
Post Anesthesia Evaluation Post Anesthesia Evaluation Date of Service: 03/29/24 Vital Signs: Vital Signs Temp Pulse Resp BP Pulse Ox O2 Del Method 03/29/24 16:00 96.8 F 55 16 100/60 99 Room Air 03/29/24 07:50 97.8 F 51 16 113/61 99 Room Air Anesthesia: General Endotracheal-GETA Mental Status: Awake Pain Control: Satisfactory (complaining on increased incisional pain) Nausea/Vomiting: Mild Hydration: Adequate Anesthesia-Related Issues: No Anes. Related Issues
[2024-03-29 20:00] VITALS: BP 101/63; PULSE 50; RESP 18; TEMP 36.4; O2SAT 100
[2024-03-29] MEDS: 0.9 % Sodium Chloride Flush 3 ML SYRINGE IVFLUSH (20:13)
[2024-03-29] MEDS: Ketorolac Tromethamine 15 MG/ML VIAL IVPUSH (22:17)
[2024-03-30] MEDS: Melatonin 3 MG TABLET 6 MG PO (01:07)
[2024-03-30] MEDS: oxyCODONE HCl Immed Release 5 MG TABLET 10 MG PO ×2 (01:07→06:15)
--- NOTE | 2024-03-30 03:11 | PC.NURSE ---
Pt is AOx3, able to make needs known, independent in her room, significant other is bedside. Pt c/o being in 10/10 pain originating from left ABD surgical site. All three surgical sites are CDI. Pt was being medicated via IV and PO meds. Approx 0030 pt rang and c/o IV burning and leaking. This RN and two other RNs attempted to replace IV for a total of 6 attempts, after last attempt, pt requested we no longer try. Notified surgeon about pt's pain and not getting much relief from PO pain med (see MAR for orders and administration) and about no longer having IV access. Spoke to RN filter plant supervisor about possible ultrasound guided IV being placed but no one who is trained to perform that is working at this time. Spoke to pt about possibly having an ultrasound guided IV placed in the AM but she is not interested at this time. Stated many times she just wants to go home . Call damian within reach.
[2024-03-30 04:00] VITALS: BP 92/51; PULSE 54; RESP 16; TEMP 36; O2SAT 98
[2024-03-30 07:30] VITALS: BP 98/53; PULSE 54; RESP 18; TEMP 36.1; O2SAT 96
--- NOTE | 2024-03-30 07:39 | P.PNGS_ITS ---
Subjective Subjective Date of Service: 03/30/24 Interval history: Continues to have difficulty with pain and lost IV access overnight. Oxycodone 10mg not helping significantly. OOB and ambulating. Tolerating diet. Physical Exam 2 Vital Signs: Vital Signs: Last Vital Signs Temp 96.9 F 03/30/24 07:30 Pulse 54 03/30/24 07:30 Resp 18 03/30/24 07:30 BP 98/53 L 03/30/24 07:30 Pulse Ox 96 03/30/24 07:30 O2 Del Method Room Air 03/30/24 07:30 O2 Flow Rate 6 03/28/24 15:53 BMI result Body Mass Index 25.3 Const: General: comfortable, no acute distress and alert O rientation/consciousness: patient oriented x3 Resp: Effort & Inspection: normal respiratory effort GI: Inspection: No distended and Yes incision (clean) Palpation (GI): Soft to palpation, Tenderness to palpation present (GI) (mild incisional) and no guarding Skin: General skin exam: no rashes or lesions noted Neuro: General: patient oriented x3 and moves all extremities Objective Data Active Medications Acetaminophen (Acetaminophen 325 Mg Tablet) 650 mg PO Q6H PRN PRN Reason: Pain, Mild (Pain Scale 1-3), fever or headache Calcium Carbonate (Calcium Carbonate 750 Mg Tab.Chew) 750 mg PO Q4H PRN PRN Reason: Heartburn Hydromorphone HCl (Hydromorphone Hcl 4 Mg Tablet) 4 mg PO Q4H PRN PRN Reason: Pain, Severe (Pain Scale 7-10) Lactated Ringer's (Lr) 1,000 mls @ 80 mls/hr IVCONT .[id number] [facility] Last Infusion: 03/30/24 01:00 Dose: 0 mls/hr Documented By: YFN Acetaminophen (Ofirmev) 1,000 mg in 100 mls @ 400 mls/hr IV ONCE PRN PRN Reason: Pain, Mild (Pain Scale 1-3) Last Infusion: 03/28/24 22:02 Dose: Infused Documented By: SADI Ibuprofen (Ibuprofen 600 Mg Tablet) 600 mg PO Q6H [facility] Ketorolac Tromethamine (Ketorolac Tromethamine 15 Mg/Ml Vial) 15 mg IVPUSH Q6H [facility] Stop: 04/03/24 22:14 Last Admin: 03/30/24 03:16 Dose: Not Given Documented By: YFN Non-Admin Reason: No Access Magnesium Hydroxide (Milk Of Magnesia 30 Ml Oral.Susp) 30 ml PO DAILY PRN PRN Reason: Constipation Melatonin (Melatonin 3 Mg Tablet) 6 mg PO BEDTIME PRN PRN Reason: Insomnia Last Admin: 03/30/24 01:07 Dose: 6 mg Documented By: YFN Morphine Sulfate (Morphine Sulfate 2 Mg/Ml Cartridge) 4 mg IVPUSH Q4H PRN; Protocol PRN Reason: Pain, Severe (Pain Scale 7-10) Last Admin: 03/29/24 20:18 Dose: 4 mg Documented By: YFN Non-Formulary Medication (Estradiol Cypionate [Depo-Estradiol]) [address] [facility] Ondansetron HCl (Ondansetron Hcl 4 Mg/2 Ml Vial) 4 mg IVPUSH Q8H PRN PRN Reason: Nausea and Vomiting Last Admin: 03/29/24 20:18 Dose: 4 mg Documented By: YFN Ondansetron HCl (Ondansetron Odt 8 Mg Tab.Rapdis) 8 mg TRANSLINGU Q8H PRN PRN Reason: Nausea and Vomiting Oxycodone HCl (Oxycodone Hcl Immed Release 5 Mg Tablet) 10 mg PO Q4H PRN PRN Reason: Pain, Moderate(Pain Scale 4-6) Last Admin: 03/30/24 06:15 Dose: 10 mg Documented By: YFN Oxycodone HCl (Oxycodone Hcl Immed Release 5 Mg Tablet) 5 mg PO Q4H PRN PRN Reason: Pain, Mild (Pain Scale 1-3) Sodium Chloride (0.9 % Sodium Chloride Flush 3 Ml Syringe) [facility] Last Admin: 03/29/24 20:13 Dose: 3 ml Documented By: YFN Spironolactone (Spironolactone 25 Mg Tablet) 100 mg PO BID [facility]; Protocol Last Admin: 03/29/24 20:12 Dose: 100 mg Documented By: YFN Labs 03/29/24 08:37 03/28/24 00:51 Labs: Laboratory Results - last 24 hr 03/29/24 08:37 MCV 92.6 MCH 31.0 MCHC 33.4 RDW 13.1 Plt Count 201 MPV 10.1 Immature Gran % (Auto) 0.5 H Neut % (Auto) 73.8 H Lymph % (Auto) 13.[address] [place] % (Auto) 11.7 H Eos % (Auto) 0.2 Baso % (Auto) 0.2 Lymph # (Auto) 1.8 [place] # (Auto) 1.6 H Eos # (Auto) 0.0 Baso # (Auto) 0.0 Abs Immat Gran (auto) 0.06 H Absolute Neuts (auto) 9.8 H Absolute Nucleated RBC 0.000 Nucleated RBC % (auto) 0.0 Smear Tech's Comments VERIFIED Microbiology Microbiology Results: Microbiology 03/28/24 02:33 Blood Culture - Preliminary Blood - Venous No growth after 48 hours. 03/28/24 02:26 Blood Culture - Preliminary Blood - Venous No growth after 48 hours. Procedures Date of Service Date of Service: 03/30/24 Progress Note: A&P Assessment and plan (1) Acute appendicitis: Status: Acute (2) S/P laparoscopic appendectomy: Status: Acute Plan POD #2 s/p lap appy. Reports difficulty with pain. She is overall clinically appearing well with benign abd exam, clean incisions. Will order motrin, tylenol atc. Change oral opioid from oxycodone to dilaudid. Encouraged OOB. Will reasess later this morning for likely dc to home. Patient comfortable with plan. Time Spent With Patient Time: Total time managing care of this patient today ____ minutes. Quality Stroke Does the patient have a stroke diagnosis?: No VTE Prior VTE?: No VTE Risk Level:: Surgical - low VTE Device Contraindication: N/A - Device Ordered VTE Drug Contraindication: Treatment Not Indicated
[2024-03-30] MEDS: Ibuprofen 600 MG TABLET PO ×2 (09:05→13:22)
[2024-03-30] MEDS: Ondansetron ODT 8 MG TAB.RAPDIS TRANSLINGU (09:05)
[2024-03-30] MEDS: Spironolactone 25 MG TABLET 100 MG PO (09:06)
[2024-03-30] MEDS: Acetaminophen 325 MG TABLET 650 MG PO (13:22)
--- NOTE | 2024-03-30 14:32 | MHC.CM.PN ---
Patient is discharged to home self care. Patient has arranged for a ride home.
--- NOTE | 2024-04-02 10:56 | P.DS_ITS ---
DS: Providers Provider Date of Service: 03/30/24 Date of admission: 03/28/24 16:06 Date of discharge: 03/30/24 Primary care physician: Billy Ball MD Attending physician on admission: Kosta Christine Attending physician on discharge: Cash Breen DS: Diagnosis Discharge Diagnosis (1) Acute appendicitis: Status: Acute (2) S/P laparoscopic appendectomy: Status: Acute DS: Summary Hospital Course Hospital Course: HPI AT ADMISSION: Jessica Chen is a 18 year old transgender female (XY) presenting with complaints of abdominal pain in the right lower quadrant. The pain began approximately 15:00 yesterday and was associated with nausea, vomiting, fever and chills. She denies a previous history of similar abdominal pain. The pain seemed to increase in severity with movement. She subsequently presented to the emergency department and was noted to have tenderness in the right lower quadrant over McBurney's point. Workup revealed an elevated WBC of [address] abdomen and pelvis revealed a distended appendix with a fecalith consistent with acute appendicitis. HOSPITAL COURSE: The patient was admitted to the surgical service for further treatment of the acute appendicitis. She was kept NPO, started on IVF and IV zosyn. Treatment options were discussed and she elected to proceed with laparoscopic appendectomy. She was added onto the OR schedule for that day. On 03/28/24, a laparoscopic appendectomy was performed by Dr. Breen without complication. The patient tolerated the procedure well. She had an uncomplicated recovery course but had difficulty with pain and remained inpatient 2 nights for pain control. On the day of discharge, POD #2, she felt improved and was tolerating a solid diet without nausea or vomiting, had good pain control and was ambulating without difficulty. She was hemodynamically stable. Her abdomen was benign with appropriate post op tenderness and clean incisions. She felt ready for discharge. She was discharged to home on 03/30/24 in stable condition. She is to follow up in the office in 1 week. Status at Discharge Functional status at discharge: independent ambulation Overall status at discharge: patient is progressing back to baseline Time Attestation Discharge Coordination Time (in mins): 30 Quality: Safe Use of Opioids Does Pt have an Active Cancer Diagnosis on the Problem List?: No Quality: Stroke Does the patient have a stroke diagnosis?: No Physical Exam Vital Signs: Vital Signs: Last Vital Signs Temp 96.9 F 03/30/24 07:30 Pulse 54 03/30/24 07:30 Resp 18 03/30/24 07:30 BP 98/53 L 03/30/24 07:30 Pulse Ox 96 03/30/24 07:30 O2 Del Method Room Air 03/30/24 07:30 O2 Flow Rate 6 03/28/24 15:53 BMI result Body Mass Index 25.3 Const: General: comfortable, no acute distress and alert Orientation/consciousness: patient oriented x3 Resp: Effort & Inspection: normal respiratory effort GI: Inspection: No distended and Yes incision (clean) Palpation (GI): Soft to palpation and Tenderness to palpation present (GI) (mild incisional pain ) Skin: General skin exam: no rashes or lesions noted Neuro: General: patient oriented x3 and moves all extremities DS: Data Data Completed and Pending Pending studies at discharge: Pending at discharge 03/28/24 15:25 Surgical [PTH] Routine Discharge Plan Discharge Anticipated Discharge Date/Time: 03/30/24 10:37 Patient Disposition: Home, Self-Care Discharge Diagnosis: acute appendicitis s/p laparoscopic appendectomy Referrals: Cash Breen MD [Physician] - 1 Week Physician,Karen Chavis [Physician] - 1 Week Discharge Medications: New docusate sodium [Colace] 100 mg capsule 100 mg PO BID Qty: 30 0RF hydromorphone [Dilaudid] 2 mg tablet 2 mg PO Q4-6H PRN (Reason: pain (scale score 7-10)) Qty: 24 0RF Rx Instructions: Partial Fill upon patient request. oxycodone 5 mg tablet 5 mg PO Q6H PRN (Reason: pain) Qty: 10 0RF Rx Instructions: Partial Fill upon patient request. oxycodone 5 mg tablet 5 mg PO Q6H PRN (Reason: pain) Qty: 10 0RF Rx Instructions: Partial Fill upon patient request. oxycodone 5 mg tablet 5 mg PO Q6H PRN (Reason: pain) Qty: 10 0RF Rx Instructions: Partial Fill upon patient request. Continued spironolactone 100 mg tablet 100 mg PO BID Depo-Estradiol 5 mg/mL oil 5 mg IM [facility] Discharge Orders: Discharge Order (Routine); Ordered 03/30/24 Ordered By: Tanya Avila Diet: Advance to usual diet Activity on Discharge: No heavy lifting Stand Alone Forms: Work/School Release Print Language: Slovak Activity Restrictions/Additional Instructions: If the incision area is tender, you may apply an ice pack for short intervals (No more than 20 minutes on, followed by at least 20 minutes off). Do not apply heat. Do not use creams, lotions, or topical antibiotics. Ok to shower. You have steri strips (small white cloth strips) covering your incision- these will fall off ~1 week. No heavy lifting (>10lbs) or strenuous activity! Take Tylenol Extra-strength 1-2 tabs every 6 hours as needed. Dilaudid every 4-6 hours as needed for pain. Colace 100 mg twice a day as needed for constipation. Follow up in office with Dr. Breen in 1 week. ([phone]) Call Your Doctor If: -Your temperature exceeds 101.5? F -You experience excessive pain or swelling -You have an unexpected reaction to medication -You have excessive bleeding -You experience continued vomiting/nausea -Your incision begins to separate -Your incision shows signs of infection such as increased redness, swelling, excessive pain, drainage (light blood or clear fluid is normal) or heat Care Plan Goals: Return to baseline health and resume normal activities following recovery period. Health Concerns: acute appendicitis Plan of Treatment: s/p laparoscopic appendectomy f/u in office in 1 week Assessment: Doing well post op. Discharge Date/Time: 03/30/24 15:33
== END 2024-03-30 15:33 | disposition home or self-care (01) | DRG 234 ==
LOC: HO.ED 07:57 → HO.SSS 13:06 → HO.S3 16:10
PROVIDERS: Surgery; Admitting Provider Surgery; Emergency Provider Emergency Medicine; PCP Internal Medicine; Visit Provider Surgery
PROC: 0DTJ4ZZ Resection of Appendix, Percutaneous Endoscopic Approach (ICD-10-PCS; CPT 44970; principal; 2024-03-28 13:50)
DX: K35.30 Acute appendicitis with localized peritonitis, without perforation or gangrene (principal); F64.0 Transsexualism; Z20.822 Contact with and (suspected) exposure to COVID-19; Z79.899 Other long term (current) drug therapy
CPT/HCPCS: 44970; 0241U; 36415; 71045; 74177; 80053; 80307; 83605; 83690; 84484; 85025; 87040; 87491; 87591; 87651; 88304; 88313; 93005; 99285; J0131; J1885; J2270; J2405; J2543; J2704; J2795; J3010; J7120; Q9967

== ENCOUNTER → 2024-03-28 00:55 | Outpatient (BNV) | payer OTHER, SELFPAY | PROVIDERS: Admitting Provider Surgery; Emergency Provider Emergency Medicine; Visit Provider Internal Medicine | DX: R00.0 Tachycardia, unspecified (principal) | CPT/HCPCS: 93010 ==

== ENCOUNTER → 2024-03-28 03:40 | Outpatient (BNV) | payer OTHER, SELFPAY | PROVIDERS: Emergency Provider Emergency Medicine; Visit Provider Surgery | DX: K35.30 Acute appendicitis with localized peritonitis, without perforation or gangrene (principal); Z90.49 Acquired absence of other specified parts of digestive tract | CPT/HCPCS: 44970; 99024; 99222; 99499 ==

== ENCOUNTER 2024-04-12 15:12 | Outpatient (AMB) | payer OTHER, SELFPAY ==
--- NOTE | 2024-04-12 15:13 | MHC.OFFVIS ---
Vital Signs 04/12/24 15:23 Height 5 ft 6 in Weight 147 lb BMI 23.7 BP 120/61 Blood Pressure Location Lt brachial Position Sitting Pulse 72 Intake Visit Reasons: s/p appendectomy Laparoscopic Allergies strawberry Allergy (Verified 03/28/24 00:44) Rash peanut Adverse Reaction (Verified 03/28/24 00:44) Difficulty Breathing Medication List - Last Reconciled 04/12/24 by Cash Breen MD docusate sodium (Colace) 100 mg PO BID estradiol valerate mg IM hydromorphone (Dilaudid) 2 mg PO Q4-6H PRN spironolactone 100 mg PO BID HPI Comments Details: 18-year-old transgender female patient returning 2 weeks following laparoscopic appendectomy for acute appendicitis. She tolerated the procedure well and reports feeling much improved. Her appetite is still somewhat reduced but overall is improving. She denies nausea, vomiting, fever or chills. [facility] Surgical History (Updated 04/12/24 @ 15:23 by MAGGIE Shea) History of laparoscopic appendectomy (03/28/24) History of wisdom tooth extraction Social History Household Members: None Housing: Apartment Do you presently have visiting nurse or other home services: No Patient Tobacco Use Status: Never used Tobacco Substance Use Type: Marijuana service: No Physical Exam Const General: no acute distress Nutritional Appearance: well nourished Orientation/consciousness: patient oriented x3 Resp Effort & Inspection: normal respiratory effort GI Other: Well-healed trocar incisions with intact Steri-Strips. No hernia noted. No evidence of infection. Neuro General: patient oriented x3 Assessment & Plan Assessment & Plan (1) S/P laparoscopic appendectomy: Code(s): Z90.49 - Acquired absence of other specified parts of digestive tract Category: Surgical Plan 18-year-old XY female presenting status post laparoscopic appendectomy for acute appendicitis. She tolerated the procedure well and her wounds are healing nicely. She should follow up as needed. Coding Level of Care Code Global (98696) Diagnoses S/P laparoscopic appendectomy Z90.49
[2024-04-12 15:23] VITALS: BP 120/61; PULSE 72; BMI 23.7
== END 2024-04-12 15:23 | disposition home or self-care (01) ==
PROVIDERS: PCP Internal Medicine; Visit Provider Surgery
DX: Z90.49 Acquired absence of other specified parts of digestive tract (principal)
CPT/HCPCS: 99024

== ENCOUNTER → 2024-04-12 15:12 | Outpatient (BNVA) | payer OTHER, SELFPAY | PROVIDERS: PCP Internal Medicine; Visit Provider Surgery | DX: Z09 Encounter for follow-up examination after completed treatment for conditions other than malignant neoplasm (principal); Z90.49 Acquired absence of other specified parts of digestive tract | CPT/HCPCS: 99212 ==

== ENCOUNTER 2024-10-24 13:19 | Emergency (ER) | payer OTHER, SELFPAY ==
--- NOTE | ~2024-10-24 | XR_ITS ---
EXAMINATION: XR CHEST CLINICAL INFORMATION: chest pain COMPARISON: 03/28/2024. TECHNIQUE: 2 views of the chest were obtained. FINDINGS: The cardiac, hilar, and mediastinal contours are normal. The lungs are clear bilaterally. There is no pneumothorax or pleural effusion. There is no focal osseous or soft tissue abnormality. There is gynecomastia incidentally noted. XR/XR chest 2V IMPRESSION: No active pulmonary disease. Electronically signed by: Suleiman Erwin MD 10/24/2024 02:31 PM EST
--- NOTE | 2024-10-24 13:37 | ED_ITS ---
HPI - General Adult General Chief complaint: Chest Pain Stated complaint: CHEST PAIN Time Seen by Provider: 10/24/24 13:36 Source: patient and EMS Mode of arrival: EMS Limitations: no limitations History of Present Illness ED Provider: Aracelis Garland PA-C HPI narrative: Patient is a 19 year old assigned male at , now female, with no reported medical history presenting to the emergency department today with chest pain, headache, fever, chills, cough, nausea, vomiting, and intermittent shortness of breath. Patient states that over the last day she has had chest pain, shortness of breath, headache, nausea, vomiting, fever, and chills. Patient denies any dizziness, lightheadedness, abdominal pain, blurry vision, double vision, loss of vision, back pain, night sweats, pain with urination, increased urinary frequency, increased urinary urgency, blood in her urine or stool, syncope or a near syncopal episode, recent trauma or falls, bowel incontinence, bladder incontinence, or any other complaints at this time. Onset (ago): day(s) (1) Relieving factors: none Exacerbating factors: none Associated symptoms: cough, fever/chills, headaches, nausea/vomiting and shortness of breath (intermittent) Treatments prior to arrival: none Related Data Home Medications ?Medication ?Instructions ?Recorded ?Confirmed spironolactone 100 mg tablet 100 mg PO BID 06/03/23 04/12/24 estradiol valerate 20 mg/mL mg IM 04/12/24 04/12/24 intramuscular oil Previous Rx's ?Medication ?Instructions ?Recorded docusate sodium 100 mg capsule 100 mg PO BID #30 caps 03/28/24 (Colace) hydromorphone 2 mg tablet 2 mg PO Q4-6H PRN pain (scale 03/30/24 (Dilaudid) score 7-10) #24 tabs Allergies Allergy/AdvReac Type Severity Reaction Status Date / Time strawberry Allergy Rash Verified 10/24/24 13:42 peanut AdvReac Difficulty Verified 10/24/24 13:42 Breathing PMFSH Past Medical History Surgical History (Updated 04/12/24 @ 15:23 by MAGGIE Shea) History of laparoscopic appendectomy (03/28/24) History of wisdom tooth extraction Social History Social History Household Members: None Housing: Apartment Do you presently have visiting nurse or other home services: No Patient Tobacco Use Status: Never used Tobacco Smoked in Last 30 Days: Yes Use of substances other than those prescribed or required for medical reasons: No Substance Use Type: Marijuana Advance Directives: No Advance Directives Information Provided: Yes Do you have a plan to hurt others: No Plan service: No Physical Exam ED Vital Signs: Vital Signs - 24 hr 10/24/24 13:39 Temperature 99.1 F Pulse Rate 102 H Respiratory Rate 18 Blood Pressure 127/67 Pulse Oximetry 99 Oxygen Delivery Method Room Air BMI result Body Mass Index 24.5 Medications Administered Discontinued Medications Generic Name Dose Route Start Last Admin Trade Name Freq PRN Reason Stop Dose Admin Al Hydroxide/Mg Hydroxide 15 ml 10/24/24 13:45 10/24/24 13:56 Magnesium Hydrox/Alum Hydrox 30 Ml Oral.Susp PO 10/24/24 13:46 15 ml ONCE ONE Administration Ketorolac Tromethamine 15 mg 10/24/24 13:45 10/24/24 13:56 Ketorolac Tromethamine 15 Mg/Ml Vial IVPUSH 10/24/24 13:46 15 mg ONCE ONE Administration Ondansetron HCl 4 mg 10/24/24 13:45 10/24/24 13:56 Ondansetron Hcl 4 Mg/2 Ml Vial IVPUSH 10/24/24 13:46 4 mg ONCE ONE Administration Pantoprazole Sodium 40 mg 10/24/24 13:45 10/24/24 13:56 Pantoprazole Sodium 40 Mg/10 Ml Vial IVPUSH 10/24/24 13:46 40 mg ONCE ONE Administration Medical Decision Making Medical Decision Making [facility] Narrative: Patient is a 19 year old assigned male at , now female, with no reported medical history presenting to the emergency department today with chest pain, headache, fever, chills, cough, nausea, vomiting, and intermittent shortness of breath. Patient's physical exam was unremarkable. Patient's blood work was unremarkable. Patient's chest x-ray showed no acute process. Patient's influenza test was positive. I explained my physical exam findings as well as all test results to the patient. I answered all questions asked by the patient. I stressed the importance of the patient taking her medication as directed (either prescribed or as the over the counter packaging recommends). I stressed the importance of the patient following up with her primary care provider. I stressed the importance of the patient returning to the emergency department immediately if her symptoms were to worsen or if she were to develop any dizziness, shortness of breath, difficulty breathing, chest pain, blurry vision, loss of vision, nausea, vomiting, abdominal pain, fever, chills, back pain, or any other complaints. Patient verbalized agreement and understanding with this treatment plan and discharge. Differential Diagnosis Differential Diagnoses: The differential diagnosis associated with the presentation includes Influenza RSV PNA Admission/Observation Consideration of admission/observation: Escalation of care including admission/observation considered Patient would have been admitted to the hospital had her work up had any findings where hospital admission was appropriate and her clinical presentation warranted hospital admission. Lab Data [facility] Lab Attestation statement: I reviewed the patient's lab results. My interpretation of these results are in the [facility] Rationale portion of this note. 10/24/24 14:04 10/24/24 14:06 Labs: Lab Results 10/24/24 10/24/24 Range/Units 14:04 14:06 WBC 9.7 (4.8-10.8) X10*3/uL RBC 4.29 L (4.60-5.80) X10*6/uL Hgb 13.3 L (14.0-18.0) g/dl Hct 37.0 L (42.0-52.0) % MCV 86.2 (80.0-98.0) fL MCH 31.0 (27.0-33.0) pg MCHC 35.9 (31.0-36.0) g/dl RDW 12.7 (11.0-16.0) % Plt Count 216 (160-400) X10*3/uL MPV 9.8 (9.4-12.4) fL Immature Gran % (Auto) 0.3 (0.0-0.4) % Neut % (Auto) 75.7 H (45-73) % Lymph % (Auto) 8.9 L (20-40) % [place] % (Auto) 14.5 H (2-11) % Eos % (Auto) 0.4 (0-4) % Baso % (Auto) 0.2 (0-2) % Lymph # (Auto) 0.9 L (1.2-4.9) X10*3/uL [place] # (Auto) 1.4 H (0.1-1.2) X10*3/uL Eos # (Auto) 0.0 (0.0-0.4) X10*3/uL Baso # (Auto) 0.0 (0.0-0.2) X10*3/uL Abs Immat Gran (auto) 0.03 (0.00-0.03) X10*3/uL Absolute Neuts (auto) 7.4 (2.0-8.3) x10*3/uL Absolute Nucleated RBC 0.000 (0.0-0.012) X10*3/uL Nucleated RBC % (auto) 0.0 (0.0-0.2) /100WBC Sodium 132 L (135-145) mmol/L Potassium 3.4 (3.3-5.1) mmol/L Chloride 108 (96-108) mmol/L Carbon Dioxide 16 L (22-29) mmol/L Anion Gap 11 L (12-20) BUN 9 (9-16) mg/dL Creatinine 0.72 (0.5-1.4) mg/dL Estim Creat Clear Calc 146.4 Estimated GFR > 60 Random Glucose 85 (60-115) mg/dL Calcium 9.5 (8.4-10.2) mg/dL Magnesium 1.7 (1.6-2.6) mg/dL Total Bilirubin 0.2 (0.0-1.0) mg/dL AST 17 (5-37) U/L ALT 10 (0-40) U/L Alkaline Phosphatase 62 (39-117) U/L Total Protein 8.0 (6.5-8.0) g/dL Albumin 4.7 (3.5-5.0) g/dL Influenza Type A (PCR) POSITIVE A (Negative) Influenza Type B (PCR) NEGATIVE (Negative) RSV RNA Qual (PCR) NEGATIVE (Negative) SARS-CoV-2 RNA (RT-PCR) NEGATIVE (Negative) S. pyogenes GrpA [place] Negative (Negative) Independent Interpretation I performed an independent interpretation of an: EKG and Plain X-Ray Interpretation: My interpretation is in agreement with the radiologist's impression of this imaging study. L EXAMINATION: XR CHEST CLINICAL INFORMATION: chest pain COMPARISON: 03/28/2024. TECHNIQUE: 2 views of the chest were obtained. FINDINGS: The cardiac, hilar, and mediastinal contours are normal. The lungs are clear bilaterally. There is no pneumothorax or pleural effusion. There is no focal osseous or soft tissue abnormality. There is gynecomastia incidentally noted. XR/XR chest 2V IMPRESSION: No active pulmonary disease. Electronically signed by: Suleiman Erwin MD 10/24/2024 02:31 PM [facility] [place] Dictated By: Suleiman Erwin MD Signed By: Electronically signed by Suleiman Erwin MD 10/24/24 143 Radiology Impression Discussion of test interpretation with radiology: I have reviewed the radiologist's reading. Independent Historian Clinical information obtained from an independent historian. History obtained from or confirmed by: EMS (EMS provided additional history and confirmed the history provided by the patient.) Discharge Plan Discharge Clinical Impression: Influenza Patient Disposition: Home, Self-Care Instructions: Influenza (DC) Additional Instructions: Follow up with your primary care provider. Return to the emergency department immediately if your symptoms worsen or if you develop any dizziness, shortness of breath, difficulty breathing, chest pain, blurry vision, loss of vision, nausea, vomiting, abdominal pain, fever, chills, back pain, or any other complaints. Prescriptions: No Action spironolactone 100 mg tablet 100 mg PO BID docusate sodium [Colace] 100 mg capsule 100 mg PO BID Qty: 30 0RF hydromorphone [Dilaudid] 2 mg tablet 2 mg PO Q4-6H PRN (Reason: pain (scale score 7-10)) Qty: 24 0RF Rx Instructions: Partial Fill upon patient request. estradiol valerate 20 mg/mL oil IM Referrals: [facility] – [place] Family Medicine [Provider Group] (Call to establish and follow up with a primary care provider. If you already have a primary care provider, please follow up with them.) [facility] – [place] [facility] [Provider Group] (Call to establish and follow up with a primary care provider. If you already have a primary care provider, please follow up with them.) [facility] – [place] [facility] [Provider Group] (Call to establish and follow up with a primary care provider. If you already have a primary care provider, please follow up with them.) Stand Alone Forms: Work/School Release Print Language: Macanese
[2024-10-24 13:39] VITALS: BP 127/67; BP 130/77; PULSE 102; PULSE 120; RESP 18; TEMP 37.3; O2SAT 98; O2SAT 99; BMI 24.5
[2024-10-24] MEDS: Ketorolac Tromethamine 15 MG/ML VIAL IVPUSH (13:56)
[2024-10-24] MEDS: Pantoprazole Sodium 40 MG/10 ML VIAL IVPUSH (13:56)
[2024-10-24] MEDS: ondansetron HCL 4 MG/2 ML VIAL IVPUSH (13:56)
[2024-10-24] MEDS: Magnesium Hydrox/Alum Hydrox 30 ML ORAL.SUSP 15 ML PO (13:56)
[2024-10-24 14:10] LABS: MANUAL DIFF FLAG NO
[2024-10-24 14:12] LABS: Basophils Percent Auto 0.2 % (0-2); Eosinophils Percent Auto 0.4 % (0-4); Hemoglobin 13.3 g/dl (14.0-18.0); Imm Gran Abs Auto 0.03 X10*3/uL (0.00-0.03); Imm Gran Pct Auto 0.3 % (0.0-0.4); Lymphocytes Absolute Auto 0.9 X10*3/uL (1.2-4.9); Lymphocytes Percent Auto 8.9 % (20-40); Mean Corpuscular HGB Conc 35.9 g/dl (31.0-36.0); Mean Corpuscular Volume 86.2 fL (80.0-98.0); Mean Platelet Volume 9.8 fL (9.4-12.4); Monocytes Absolute Auto 1.4 X10*3/uL (0.1-1.2); Monocytes Percent Auto 14.5 % (2-11); Neutrophils Absolute Auto 7.4 x10*3/uL (2.0-8.3); Neutrophils Percent Auto 75.7 % (45-73); Platelet Count 216 X10*3/uL (160-400); Red Blood Count 4.29 X10*6/uL (4.60-5.80); Red Cell Distribution Width 12.7 % (11.0-16.0); White Blood Count 9.7 X10*3/uL (4.8-10.8)
[2024-10-24 14:19] LABS: IDNOW Serial# 6674DD1D; Strep A Nucleic Acid Negative (Negative)
[2024-10-24 14:25] LABS: Alanine Aminotransferase 10 U/L (0-40); Albumin Level 4.7 g/dL (3.5-5.0); Alkaline Phosphatase 62 U/L (39-117); Anion Gap 11 (12-20); Aspartate Amino Transferase 17 U/L (5-37); Bilirubin Total 0.2 mg/dL (0.0-1.0); Blood Urea Nitrogen 9 mg/dL (9-16); Calcium 9.5 mg/dL (8.4-10.2); Carbon Dioxide 16 mmol/L (22-29); Chloride 108 mmol/L (96-108); Creatinine Clr Calc Pharmacy 146.4; Estimated Glomerular Filt Rate > 60; Glucose Random 85 mg/dL (60-115); Magnesium 1.7 mg/dL (1.6-2.6); Potassium 3.4 mmol/L (3.3-5.1); Sodium 132 mmol/L (135-145)
[2024-10-24 14:49] LABS: Influenza A PCR POSITIVE (Negative); Influenza B PCR NEGATIVE (Negative); Resp Syncy Virus RNA Qual PCR NEGATIVE (Negative); SARS COV2 PCR INHOUSE NEGATIVE (Negative)
[2024-10-24 15:11] VITALS: BP 110/63; PULSE 89; RESP 16; TEMP 36.7; O2SAT 98
[2024-10-24 15:13] VITALS: BP 110/63; PULSE 89; RESP 16; TEMP 36.7; O2SAT 98
--- OUTSIDE RECORDS SUMMARY | 2024-10-24 16:17 | XMS_ITS ---
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 Role Phone FAYE JACKSON Unavailable [phone] Allergies Allergen (clinical drug ingredient) Drug/Non Drug Allergy documented on EMR Reaction Allergy Type Onset Date Status peanuts (uncoded) Unknown Allergy In active Strawberries Unknown Allergy Active REASON FOR VISIT [facility] discussion Medications Medication SIG (Take, Route, Frequency, Duration) Notes Start Date End Date Status BD Syringe/Needle 25G X 5/8 1 ML once a week for 90 days 08/10/2023 Acti ve Spironolactone 100 MG 1 tablet Orally On ce a day for 90 days Active Estradiol Valerate 20 MG/ML 0.25ml/5mg Subcutaneous Once weekly for 90 days 04/11/2024 Active BD Disp [place] 19G X 1 as directed for drawing up injectable medication for 90 days 07/28/2023 Active Estradiol Cypionate 5 MG/ML 0.5ml subcutaneously weekly for 90 days 03/05/2024 Active Estradiol Cypionate 5 MG/ML 0.5 milliliter subcutaneous Weekly for 90 days 07/28/2023 Active Prometrium 100 MG as directed Orally O nce daily at bedtime for 90 days 06/15/2024 Active [facility] Alcohol Prep Pads 70 % as directed for 90 days 07/28/2023 Active BD Disp [place] 19G X 1 once a week for 90 days 1 10/10/2022 Active BD [employer] - as directed for 90 days 07/28/2023 Active Social History Sex Assigned At : Social History Observation Description Sex Assigned At Male Section Notes: social hx not reviewed today Encounters Encounter Location Date Provider Diagnosis [facility] [address] [place] [address] [phone] 06/15/2024 FAYE JACKSON Hormone replacemen t therapy Z79.890 and 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 Peanut oil listed as active allergy since childhood but appears clt not having any issues tolerating peanuts now. Can attempt Prometrium. Advised clt to stop medication if rash develops and/or oral involvement. Take Benadryl and seek out urgent care if any oral involvement. Call with any concerns. Spent 15 minutes doing the following: Chart Prep Obtaining/r eviewing history Counseling/ Coordinatio n of Care Documenting the visit Educating the patient Ordering medication/ test/proced ures Established Patient: [id number] 10 Minutes 06/15/2024 Other gender identity disorders (ICD-10 - F64.8) Spent 15 minutes doing the following: Chart Prep Obtaining/r eviewing history Counseling/ Coordinatio n of Care Documenting the visit Educating the patient Ordering medication/ test/proced ures Established Patient: 61230 10 Minutes Plan Of Treatment Medication Medication Name Sig Start Date Stop Date Notes Prometrium 100 MG as directed Orally O nce daily at bedtime for 90 days 06/15/2024 Treatment Notes Assessment Notes Hormone replacement therapy Continuation of progesterone conversation from last visit. Peanut oil listed as active allergy since childhood but appears clt not having any issues tolerating peanuts now. Can attempt Prometrium. Advised clt to stop medication if rash develops and/or oral involvement. Take Benadryl and seek out urgent care if any oral involvement. Call with any concerns. Next Appt Details Follow Up: 3 Months, Reason: GAH kimberly Provider Name:FAYE JACKSON, 09/2024 12:45:00 PM, [address] [place] [address], [place], [place], [phone], Progress Notes * Torsten ESCALANTEDOB:2004 (18 yo M)Acc No.[id number]:06/15/2024 Patient:?Torsten ESCALANTE X Provider:?FAYE JACKSON :2005???Age:18 Y???Sex:Male(T) Date:06/15/2024 Address:[facility] [place] [id number] Subjective: * Chief Complaints: * ???GAH discussion * HPI: ???Visit Narrative:? Clt had [facility] visit recently on 06/01/24. Had discussed progesterone/prometrium at that time. Clt wanted a little more time to research it first but is feeling ready to start. Has peanuts listed as allergy due to as a child may have had a reaction per parents. However clt eats peanut butter and uses peanut oil for cooking without issues. Denies any rashes or oral rxn. Would like start on prometrium Today's visit conducted over the phone. Clt verbalized being in a safe space for today's visit. All medical questions and exam questions self reported by the Clt. ?Reason for the visit:?Progesterone conversation.?Patient Location?In [place].? * ROS:?General/Constitutional:?Comments?She has no complaints.? * Medical History:? * Surgical History:?apendectom y 02/2024 * Hospitalization/Major Diagno stic Procedure:?Feeling overall unwell - plethora of sxs 05/2023 * Family History:? Grandmother - Breast cancer Mother - carpel tunnel Father- disorder w/ eyes. * Social History:?Food Access:?Food Access?The Client's current access to food is?[employer] ???social hx not reviewed today. * Medications:?TakingBD [employer] - Miscellaneous as directed [facility] Alcohol Prep Pads 70 % Pad as directed BD Disp [place] 19G X 1 Miscellaneous once a week Estradiol Cypionate 5 MG/ML Oil 0.5 milliliter subcutaneous Weekly Estradiol Cypionate 5 MG/ML Oil 0.5ml subcutaneously weekly Estradiol Valerate 20 MG/ML Oil 0.25ml/5mg Subcutaneous Once weekly BD Disp [place] 19G X 1 Miscellaneous as directed for drawing up injectable medication BD Syringe/Needle 25G X 5/8 1 ML Miscellaneous once a week Spironolactone 100 MG Tablet 1 tablet Orally Once a day Taking BD [employer] - Miscellaneous as directed Taking [facility] Alcohol Prep Pads 70 % Pad as directed Taking BD Disp [place] 19G X 1 Miscellaneous once a week Taking Estradiol Cypionate 5 MG/ML Oil 0.5 milliliter subcutaneous Weekly Taking Estradiol Cypionate 5 MG/ML Oil 0.5ml subcutaneously weekly Taking Estradiol Valerate 20 MG/ML Oil 0.25ml/5mg Subcutaneous Once weekly Taking BD Disp [place] 19G X 1 Miscellaneous as directed for drawing up injectable medication Taking BD Syringe/Needle 25G X 5/8 1 ML Miscellaneous once a week Taking Spironolactone 100 MG Tablet 1 tablet Orally Once a day * Allergies:?Strawberriesno[Jimmy arenas Verified] Objective: * Vitals:? * Examination: ???General Examination: ?GENERAL APPEARANCE:?in no acute distress.?PSYCH:?alert, oriented.? Assessment: * Assessment: 1.?Hormone replacement thera py - Z79.890 (Primary)???2.?Other gender identity disorders - F64.8??? Spent 15 minutes doing the f ollowing: Chart Prep Obtaining/reviewing history Counseling/Coordination of Care Documenting the visit Educating the patient Ordering medication/test/procedures Established Patient: [id number] 10 Minutes Plan: * Treatment: * Procedure Codes:? * Follow Up:?3 Months (Reason: [facility] fu) * Billing Information: * Visit Code:? 90531 Existing - Minimal Complexity (IN USE). * Procedure Codes:? * Sign off status: Completed true * Provider:FELIX JACKSON Date:?06/15/2024 Generated for Eddie johnston/Justine/Tato on:?10/24/2024 04:16 PM EST History and Physical Notes * HPI (History of Present Illness) Category Sub-Category Detail Notes Category Not es Visit Narrative Reason for the visit: Progesterone con versation Patient Location In [place] Examination Category Sub-Category Detail Notes Category Not es General Examination GENERAL APPEARANCE: in no acute di stress PSYCH: alert, oriented
--- OUTSIDE RECORDS SUMMARY | 2024-10-24 16:17 | XMS_ITS | Patient Health Record ---
Author Organization [facility] Address [address] [id number] Care Team Providers Care Speech Pathology Supervisor Name Role Phone ASHLEIGH BARRETO Unavailable [phone] GEORGINA DURANT Unavailable [phone] Dede Hayward Unavailable [phone] FAYE JACKSON Unavailable [phone] Karen Winters Unavailable [phone] Allergies Allergen (clinical drug ingredient) Drug/Non Drug Allergy documented on EMR Reaction Allergy Type Onset Date Status peanut allergenic extract Peanut (Diagnostic) Unknown Drug Allergy Active Strawberries Unknown Allergy Active Results Component Value Reference Range Notes [id number]-[id number] Reviewed date:08/13/2024 10:47:17 AM Interpretation:10, Normal Performing Lab:[facility], [address] [facility], Phone - [phone], Director Mamie Parada Notes/Report: Clinical Information:Client on hormones. Please run labs as ordered regar dless of t BUN 10 6-20 mg/dL Potassium-970200 Reviewed date:08/13/2024 10:47:02 AM Interpretation:4.5 Normal Performing Lab:[facility], [address] [facility], Phone - [phone], Director - Karma Notes/Report: Clinical Information:Client on hormones. Please run labs as ordered regar dless of t Potassium 4.5 3.5-5.2 mmol/L Creatinine-085467 Reviewed date:08/13/2024 10:45:47 AM Interpretation:Cr 0.75 (mildly low) Performing Lab:[facility], [address] [facility], Phone - [phone], Director - Karma Notes/Report: Clinical Information:Client on hormones. Please run labs as ordered regar dless of t Creatinine 0.75 0.76-1.27 mg/dL eGFR 132 >59 mL/min/1.73 Testosterone-[id number] Reviewed date:08/13/2024 10:43:32 AM Interpretation:<3 Performing Lab:[facility], [address] [facility], [place], Phone - [phone], Director - Karma Notes/Report: Clinical Information:Client on hormones. Please run labs as ordered regar dless of t Testosterone <3 264-916 ng/dL Adult male reference interval is based on a population of healthy nonobese males (BMI <30) between 19 and 39 years old. Олег et.al. JCEM 2017,102;0882-8116. PMID: 42043585. Estradiol-075624 Reviewed date:08/13/2024 11:17:44 AM Interpretation:358 Performing Lab:[facility], [address] [facility], [place], Phone - [phone], Director - Karma Notes/Report: Clinical Information:Client on hormones. Please run labs as ordered regar dless of t Estradiol 358.0 7.6-42.6 pg/mL Dipak ECLIA m ethodology T pallidum Screening [facility] -[id number] Reviewed date:08/13/2024 10:47:31 AM Interpretation:Negative Performing Lab:[facility], [address], [address], [place], Phone - [phone], Director [facility] Notes/Report: Clinical Information:Client on hormones. Please run labs as ordered regar dless of t T pallidum Antibodies Non Reactive Non Reactive HIV Ab/p24 Ag with Reflex-08 [id number] Reviewed date:08/13/2024 10:47:46 AM Interpretation:Negative Performing Lab:[facility], [address], [address], [place], Phone - [phone], Director [facility] Notes/Report: Clinical Information:Client on hormones. Please run labs as ordered regar dless of t HIV Ab/p24 Ag Screen Non Reactive Non Reactive HIV-1/HIV-2 antibodies and HIV-1 p24 antigen were NOT detected. There is no laboratory evidence of HIV infection. HIV Negative APTIMA COMBO 2 CT/NG, Throat /Pharyngeal Reviewed date:06/18/2024 01:07:31 PM Interpretation:Negative Performing Lab:[facility], [employer], [place], [address] Jordin Marion, Notes/Report: GONORRHEA, AMPLIFIED NEGATIVE NEGATIVE CHLAMYDIA, AMPLIFIED NEGATIVE NEGATIVE DNA Test Results SEX: M : 2005 AGE: 18 [id number] CLINIC ID: [id number] SS: PHYSICIAN: FAYE JACKSON CNM COLLECTED BY: [id number] Specimen Source: Throat/Pharyngeal Specimen Type: Swab, Jose PCR Medium Neisseria gonorrhoeae: NEGATIVE Normal Value: Negative Chlamydia trachomatis: NEGATIVE Normal Value: Negative APTIMA COMBO 2 CT/NG, Urine Reviewed date:06/18/2024 01:07:43 PM Interpretation:Negative Performing Lab:[facility], [employer], [place], [address] Jordin Marion, Notes/Report: GONORRHEA, AMPLIFIED NEGATIVE NEGATIVE CHLAMYDIA, AMPLIFIED NEGATIVE NEGATIVE DNA Test Results SEX: M : 2005 AGE: 18 [id number] CLINIC ID: [id number] SS: PHYSICIAN: FAYE JACKSON CNM COLLECTED BY: [id number] Specimen Source: Urine Specimen Type: Urine, Jose PCR Medium Neisseria gonorrhoeae: NEGATIVE Normal Value: Negative Chlamydia trachomatis: NEGATIVE Normal Value: Negative HBsAg Screen-[id number] Reviewed date:06/07/2024 01:04:44 PM Interpretation:Negative Performing Lab:[facility], [address], [address], [place], Phone - [phone], Director - [facility] Notes/Report: HBsAg Screen Negative Negative Hepatitis B Surf Ab Quant-00 [id number] Reviewed date:06/07/2024 01:04:28 PM Interpretation:Not Immune Performing Lab:[facility], [address], [address], [place], Phone - [phone], Director - [facility] Notes/Report: Hepatitis B Surf Ab Quant <3.5 Immunity>10 mIU /mL Status of Immunity Anti-HBs Level Inconsistent with Immunity 0.0 - 10.0 Consistent with Immunity >10.0 HCV Antibody-[id number] Reviewed date:06/07/2024 01:04:12 PM Interpretation:Non-reactive Performing Lab:[facility], [address], [address], [place], Phone - [phone], Director - [facility] Notes/Report: Hep C Virus Ab Non Reactive Non Reactive HCV antibody alone does not differentiate between previously resolved infection and active infection. Equivocal and Reactive HCV antibody results should be followed up with an HCV RNA test to support the diagnosis of active HCV infection. HIV Ab/p24 Ag with Reflex-08 [id number] Reviewed date:06/07/2024 01:04:03 PM Interpretation:Non-reactive Performing Lab:[facility], [address], [address], [place], Phone - [phone], Director - [facility] Notes/Report: HIV Ab/p24 Ag Screen Non Reactive Non Reactive HIV-1/HIV-2 antibodies and HIV-1 p24 antigen were NOT detected. There is no laboratory evidence of HIV infection. HIV Negative T pallidum Screening [facility] -[id number] Reviewed date:06/07/2024 01:03:53 PM Interpretation:Non-reactive Performing Lab:[facility], [address] [facility], Phone - [phone], Director Mamie Parada Notes/Report: T pallidum Antibodies Non Reactive Non Reactive [facility]-[id number] Reviewed date:05/25/2024 09:08:03 AM Interpretation:331 Performing Lab:[facility], [address] [facility], Phone - [phone], Director Mamie Zhoudry Notes/Report: Estradiol 331.0 7.6-42.6 pg/mL Dipak ECLIA m ethodology Testosterone-570035 Reviewed date:05/25/2024 09:08:59 AM Interpretation:3 Performing Lab:[facility], [address] [place] [address], Phone - [phone], Director - Karma Notes/Report: Testosterone 3 264-916 ng/dL Adult male reference interval is based on a population of healthy nonobese males (BMI <30) between 19 and 39 years old. roseline Denney.al. JCEM 2017,102;1354-7859. PMID: 47403305. Creatinine-110918 Reviewed date:05/24/2024 10:38:52 AM Interpretation:Cr 0.86 Normal Performing Lab:[facility], [address] [place] [address], Phone - [phone], Director - Karma Notes/Report: Creatinine 0.86 0.76-1.27 mg/dL eGFR 127 >59 mL/min/1.73 Potassium-834061 Reviewed date:05/24/2024 10:36:59 AM Interpretation:4.7 Normal Performing Lab:[facility], [address] [place] [address], Phone - [phone], Director - Karma Notes/Report: Potassium 4.7 3.5-5.2 mmol/L BUN-576587 Reviewed date:05/24/2024 10:38:38 AM Interpretation:11 Normal Performing Lab:[facility], [address] [place] [address], Phone - [phone], Director - Karma Notes/Report: BUN 11 6-20 mg/dL APTIMA COMBO 2 CT/NG, Urine Reviewed date:04/18/2024 09:09:52 AM Interpretation:Negative Performing Lab:[facility], [address] [facility], [place], [address] Jordin Marion DO Notes/Report: GONORRHEA, AMPLIFIED NEGATIVE NEGATIVE CHLAMYDIA, AMPLIFIED NEGATIVE NEGATIVE DNA Test Results SEX: M : 2005 AGE: 18 [id number] CLINIC ID: [id number] SS: PHYSICIAN: FAYE JACKSON CNM COLLECTED BY: [id number] Specimen Source: Urine Specimen Type: Urine, Jose PCR Medium Neisseria gonorrhoeae: NEGATIVE Normal Value: Negative Chlamydia trachomatis: NEGATIVE Normal Value: Negative Reason For Referral No Information Medications Medication SIG (Take, Route, Frequency, Duration) Notes Start Date End Date Status Prometrium 100 MG as directed Orally O nce daily at bedtime for 90 days 06/15/2024 Active Spironolactone 100 MG 1 tablet Orally On ce a day for 90 days Active [facility] Alcohol Prep Pads 70 % as directed for 90 days 07/28/2023 Active BD [employer] - as directed 07/28/2023 Active BD Syringe/Needle 25G X 5/8 1 ML Use as directed for weekly medication injection for 90 days 08/10/2023 Active Estradiol Valerate 20 MG/ML 0.25ml/5mg S ubcutaneous Once weekly for 90 days 04/11/2024 Active BD Disp Henderson 19G X 1 as directed, fo r drawing up weekly injectable medication for 90 days 08/10/2023 Active Social History Sex Assigned At : Social History Observation Description Sex Assigned At Male Section Notes: Aptima/ bw social hx not reviewed today Problems Problem Type SNOMED Code ICD Code Onset Dates Problem Status W/U Status Risk Notes Problem 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 Problem Gender identity disorder (21976615) Gender identity disorder, 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 Vital Signs Blood pressure diastolic 74 mm Hg 08/27/2024 Height 66 in 08/27/2024 Blood pressure systolic 126 mm Hg 08/27/2024 Weight 153.2 lbs 08/27/2024 BMI 24.72 kg/m2 08/27/2024 Encounters Encounter Location Date Provider Diagnosis [address] [id number] 04/11/2024 FAYEMARQUES JACKSON Gender identity disorder, unspecified F64.9 ; Hormone replacement therapy Z79.890 ; Encounter for screening for infections with a predominantly sexual mode of transmission Z11.3 and Other problems related to lifestyle Z72.89 [facility] [address] [place] [id number] 05/23/2024 FAYEMARQUES JACKSON Hormone replacement therapy Z79.890 and Gender identity disorder, unspecified F64.[address] [id number] 06/01/2024 FAYE JACKSON Gender identity disorder, unspecified F64.9 ; Hormone replacement therapy Z79.890 ; Encounter for screening for infections with a predominantly sexual mode of transmission Z11.3 ; HIV Screening Z11.4 ; Screening for other viral diseases Z11.59 and Other problems related to lifestyle Z72.89 [facility] [address] [place] [id number] 06/06/2024 FAYE JACKSON [address] [id number] 06/15/2024 FAYE JACKSON Hormone replacement therapy Z79.890 and Other gender identity disorders F64.[address] [id number] 08/10/2024 FAYEMARQUES JACKSON Hormone replacement therapy Z79.890 ; Encounter for screening for infections with a predominantly sexual mode of transmission Z11.3 and HIV Screening Z11.[address] [id number] 08/27/2024 Karen Winters Gender identity disorder, unspecified F64.9 and Hormone replacement therapy Z79.890 [facility] [address] [id number] 10/26/2023 GEORGINA CARLEEN [facility] [address] [id number] 10/28/2023 GEORGINA CARLEEN [facility] [address] [id number] 11/30/2023 GEORGINA CARLEEN Hormone replacement therapy Z79.890 [facility] [address] [id number] 01/03/2024 GEORGINA CARLEEN Hormone replacement therapy Z79.890 [facility] [address] [id number] 03/05/2024 Dede Hayward [place] [facility] [address] [facility] [place] [id number] 03/16/2024 FAYE ROONEYY [address] [id number] 03/23/2024 FAYE JACKSON [address] [id number] 06/01/2024 FAYEMARQUES JACKSON Encounter for screening for infections with a predominantly sexual mode of transmission Z11.3 ; HIV Screening Z11.4 ; Other problems related to lifestyle Z72.89 ; Hormone replacement therapy Z79.890 and Other gender identity disorders F64.[address] [id number] 06/11/2024 FAYEMARQUES JACKSON Assessments Encounter Date Diagnosis (ICD Code) Assessment Notes Treatment Notes Treatment Clinical Notes Section Notes 11/30/2023 Hormone replacement therapy (ICD-10 - Z79.890) 01/03/2024 Hormone replacement therapy (ICD-10 - Z79.890) 04/11/2024 Gender identity disorder, unspecified (ICD-10 - F64.9) Reviewed clt's experience with [facility] so far and concerns with back orders for estradiol cypionate. Reviewed option to switch over to estradiol valerate to avoid back order issues- tends to have less issues. Clt in agreement. Also reviewed that estradiol valerate very good at suppressing T levels- reviewed options of continue of bertin as is or decreasing/stop ping dosing to see how it responds to EV by itself. Clt would like to continue with Bertin as is for now. Will defer labs today as clt off of estradiol for at least a month. Labs for 4 wks and fu in 6 wks Need 2 out of 3 Sections from A-C Section A) Problems (only need one from below) One or more chronic illness with exacerbation, progression, or side effects from treatment Section B) Data (need at least one of the following categories in this section) Category 1: (Choose three of the following): Order Unique tests Section C) Risk (any one of the following) Prescription drug management (this counts for the whole section) 04/11/2024 Hormone replacement therapy (ICD-10 - Z79.890) Need 2 out of 3 Sections from A-C Section A) Problems (only need one from below) One or more chronic illness with exacerbation, progression, or side effects from treatment Section B) Data (need at least one of the following categories in this section) Category 1: (Choose three of the following): Order Unique tests Section C) Risk (any one of the following) Prescription drug management (this counts for the whole section) 05/23/2024 Hormone replacement therapy (ICD-10 - Z79.890) 06/01/2024 Gender identity disorder, unspecified (ICD-10 - F64.9) Reviewed clt's experience with change from estradiol cypionate to valerate. Clt happy with the change. Estradiol level is above goal range and clt a little unclear when last injection was in relation to blood work. Reviewed that we don't have data to help guide up in what is a safe upper limit however current level is still in the normal AFAB range. Reviewed options of staying at current dosing or decreasing slightly. Clt would like to stay at the current dosing. Reviewed that T level is very well suppressed. Reviewed opitions of decreasing bertin dosing. clt would like to decrease dose to 100mg once daily to see how that feels. Reviewed progesterone option- pros/cons and reasons why some folks might consider it. Clt has been wondering about it but would like to do more research on it first. May call for Rx if does decide she wants to try it. Advised to take at bedtime. Plan for labs in 10 wks and fu visit at 12 weeks Need 2 out of 3 Sections from A-C Section A) Problems (only need one from below) Section B) Data (need at least one of the following categories in this section) Category 1: (Choose three of the following): Order Unique tests Section C) Risk (any one of the following) Prescription drug management (this counts for the whole section) 06/01/2024 Hormone replacement therapy (ICD-10 - Z79.890) Need 2 out of 3 Sections from A-C Section A) Problems (only need one from below) Section B) Data (need at least one of the following categories in this section) Category 1: (Choose three of the following): Order Unique tests Section C) Risk (any one of the following) Prescription drug management (this counts for the whole section) 06/01/2024 HIV Screening (ICD-10 - Z11.4) 06/15/2024 Other gender identity disorders (ICD-10 - F64.8) Spent 15 minutes doing the following: Chart Prep Obtaining/revie wing history Counseling/Coor dination of Care Documenting the visit Educating the patient Ordering medication/test /procedures Established Patient: 90010 10 Minutes 06/15/2024 Hormone replacement therapy (ICD-10 - Z79.890) [...] 15 minutes doing the following: Chart Prep Obtaining/revie wing history Counseling/Coor dination of Care Documenting the visit Educating the patient Ordering medication/test /procedures Established Patient: 45941 10 Minutes 06/01/2024 Encounter for screening for infections with a predominantly sexual mode of transmission (ICD-10 - Z11.3) 08/10/2024 Hormone replacement therapy (ICD-10 - Z79.890) 08/27/2024 Gender identity disorder, unspecified (ICD-10 - F64.9) Need 2 out of 3 Sections from A-C Section B) Data (need at least one of the following categories in this section) Category 1: (Choose three of the following): Review test results Section C) Risk (any one of the following) Prescription drug management (this counts for the whole section) 08/27/2024 Hormone replacement therapy (ICD-10 - Z79.890) Reviewed lab results. Estradiol outside usual goal range. OK to continue current dosing given positive response. Will recheck yearly or PRN per protocol. All other labs normal. Rx sent to pharmacy as noted Need 2 out of 3 Sections from A-C Section B) Data (need at least one of the following categories in this section) Category 1: (Choose three of the following): Review test results Section C) Risk (any one of the following) Prescription drug management (this counts for the whole section) 06/01/2024 Other problems related to lifestyle (ICD-10 - Z72.89) 08/10/2024 Encounter for screening for infections with a predominantly sexual mode of transmission (ICD-10 - Z11.3) 06/01/2024 Encounter for screening for infections with a predominantly sexual mode of transmission (ICD-10 - Z11.3) Discussed STI risks, screenings that are available through [facility] and safe [facility]. For STI labs on Wed before 2pm Clt aware of lab processing times and how to view results on portal and how positive results will be communicated Need 2 out of 3 Sections from A-C Section A) Problems (only need one from below) Section B) Data (need at least one of the following categories in this section) Category 1: (Choose three of the following): Order Unique tests Section C) Risk (any one of the following) Prescription drug management (this counts for the whole section) 05/23/2024 Gender identity disorder, unspecified (ICD-10 - F64.9) 04/11/2024 Encounter for screening for infections with a predominantly sexual mode of transmission (ICD-10 - Z11.3) Discussed STI risks, screenings that are available through [facility] and safe sex. Clt aware of lab processing times and how to view results on portal and how positive results will be communicated Need 2 out of 3 Sections from A-C Section A) Problems (only need one from below) One or more chronic illness with exacerbation, progression, or side effects from treatment Section B) Data (need at least one of the following categories in this section) Category 1: (Choose three of the following): Order Unique tests Section C) Risk (any one of the following) Prescription drug management (this counts for the whole section) 04/11/2024 Other problems related to lifestyle (ICD-10 - Z72.89) Need 2 out of 3 Sections from A-C Section A) Problems (only need one from below) One or more chronic illness with exacerbation, progression, or side effects from treatment Section B) Data (need at least one of the following categories in this section) Category 1: (Choose three of the following): Order Unique tests Section C) Risk (any one of the following) Prescription drug management (this counts for the whole section) 06/01/2024 HIV Screening (ICD-10 - Z11.4) Need 2 out of 3 Sections from A-C Section A) Problems (only need one from below) Section B) Data (need at least one of the following categories in this section) Category 1: (Choose three of the following): Order Unique tests Section C) Risk (any one of the following) Prescription drug management (this counts for the whole section) 08/10/2024 HIV Screening (ICD-10 - Z11.4) 06/01/2024 Hormone replacement therapy (ICD-10 - Z79.890) 06/01/2024 Screening for other viral diseases (ICD-10 - Z11.59) Need 2 out of 3 Sections from A-C Section A) Problems (only need one from below) Section B) Data (need at least one of the following categories in this section) Category 1: (Choose three of the following): Order Unique tests Section C) Risk (any one of the following) Prescription drug management (this counts for the whole section) 06/01/2024 Other gender identity disorders (ICD-10 - F64.8) 06/01/2024 Other problems related to lifestyle (ICD-10 - Z72.89) Need 2 out of 3 Sections from A-C Section A) Problems (only need one from below) Section B) Data (need at least one of the following categories in this section) Category 1: (Choose three of the following): Order Unique tests Section C) Risk (any one of the following) Prescription drug management (this counts for the whole section) Plan Of Treatment Next Appt Details Provider Name:FAYE JACKSON, 09/2024 12:45:00 PM, [address] [place] [address], [phone], Insurance Providers Payer Name Payer Address Payer Phone Subscriber Number Group Number Insured Name Patient Relationship to Insured Coverage Start Date Coverage End Date [facility] - [id number] [address] [place] [id number] [phone] UN fee cat 2 Torsten Chen Self - patient is the insured Medical (General) History Medical History History ICD Code Weight concerns Eating disorder, in the past Migraines, no aura Mental health concerns, in the past Dysphoria Surgical History Surgery Date(Month/Year) apendectomy 02/2024 Hospitalization History Reason Date(Month/Year) feeling overall unwell, plethora of Sx 0 05/2023
--- OUTSIDE RECORDS SUMMARY | 2024-10-24 16:17 | XMS_ITS ---
Author Organization [facility] Address [address] [place] [phone] Care Team Providers Care Logger Name Role Phone Karen Winters Unavailable [phone] Allergies Allergen (clinical drug ingredient) Drug/Non Drug Allergy documented on EMR Reaction Allergy Type Onset Date Status peanut allergenic extract Peanut (Diagnostic) Unknown Drug Allergy Active Strawberries Unknown Allergy Active REASON FOR VISIT GA F/U Medications Medication SIG (Take, Route, Frequency, Duration) Notes Start Date End Date Status Prometrium 100 MG as directed Orally O nce daily at bedtime for 90 days 06/15/2024 Active Spironolactone 100 MG 1 tablet Orally On ce a day for 90 days Active BD Syringe/Needle 25G X 5/8 1 ML Use as directed for weekly medication injection for 90 days 08/10/2023 Active Estradiol Valerate 20 MG/ML 0.25ml/5mg S ubcutaneous Once weekly for 90 days 04/11/2024 Active [facility] Alcohol Prep Pads 70 % as directed for 90 days 07/28/2023 Active BD [employer] - as directed 07/28/2023 Active BD Disp Council 19G X 1 as directed, fo r drawing up weekly injectable medication for 90 days 08/10/2023 Active Social History Sex Assigned At : Social History Observation Description Sex Assigned At Male Vital Signs Blood pressure systolic 126 mm Hg 08/27/20 24 Blood pressure diastolic 74 mm Hg 024 Height 66 in 08/27/2024 Weight 153.2 lbs 08/27/2024 BMI 24.72 kg/m2 08/27/2024 Encounters Encounter Location Date Provider Diagnosis [facility] [phone] 08/27/2024 Karen Winters Gender identity disorder, unspecified F64.9 and Hormone replacement therapy Z79.890 Assessments Encounter Date Diagnosis (ICD Code) Assessment Notes Treatment Notes Treatment Clinical Notes Section Notes 08/27/2024 Gender identity disorder, unspecified (ICD-10 - [...] for the whole section) Plan Of Treatment Medication Medication Name Sig Start Date Stop Date Notes Prometrium 100 MG as directed Orally O nce daily at bedtime for 90 days 06/15/2024 Spironolactone 100 MG 1 tablet Orally On ce a day for 90 days BD Syringe/Needle 25G X 5/8 1 ML Use as directed for weekly medication injection for 90 days 08/10/2023 Estradiol Valerate 20 MG/ML 0.25ml/5mg S ubcutaneous Once weekly for 90 days 04/11/2024 CVS Alcohol Prep Pads 70 % as directed for 90 days 023 BD [employer] - as directed 07/28/2023 BD Disp [place] 19G X 1 as directed, fo r drawing up weekly injectable medication for 90 days 08/10/2023 Treatment Notes Assessment Notes Hormone replacement therapy Reviewed lab results. Estradiol outside usual goal range. OK to continue current dosing given positive response. Will recheck yearly or PRN per protocol. All other labs normal. Rx sent to pharmacy as noted Next Appt Details Follow Up: 1 Year, Reason: G AH follow up (or sooner PRN) Provider Name:FAYE JACKSON, 09/2024 12:45:00 PM, [address] [facility], [place], [place], [phone], Progress Notes * Torsten ESCALANTE XDOB:2004 (19 yo M)Acc No.[id number]:08/27/2024 Gender affirming hormones fo llow up visit Patient:?Torsten ESCALANTE Provider:?MOISÉS Barlow :2005???Age:19 Y???Sex:Male(T) Date:08/27/2024 Address:[address] [place] [address] [place], [id number] Subjective: * Chief Complaints: * ???GAH F/U * HPI: ???Visit Narrative:?Current form of control:?none.?Presenting Symptoms:?no Sx or concerns.?Last date of UPI:?08/18/2024.?Other Notes for the Clinician:?Clt currently has no concerns. Here for GAH continuation?.? Pt very happy with current HRT dosing. No concerns or negative side effects from estradiol valerate, prometrium or spironalactone. Completed lab work recently. * ROS:?ACHES:?shortness of breath?Denies.?chest pain?Denies.?visual changes?Denies.?calf pain?Denies.?abdominal pain?Denies.?Psychiatric:?Denies?Mood concerns.? * Medical History:? * Surgical History:?apendectom y 02/2024 * Hospitalization/Major Diagno stic Procedure:?feeling overall unwell, plethora of Sx 05/2023 * Family History:? Grandmother - Breast cancer Mother - carpel tunnel Father- disorder w/ eyes. * Social History:?Food Access:?Food Access?The Client's current access to food is?Secure Food Access ???Housing:?Housing?The client's current living situation is:?stable housing ???Reproductive Life Plan:?Reproductive Life Plan?Do you want to have children??Yes, I want to have children ?How long would you like to wait until you/your partner becomes ??not sure ?How sure are you that you will be able to use your control method without any problems??Very sure ???Sexual History:?Sexual History?Sexual History Reviewed:?Partners, Practices, Protection/Past STIs ?Currently sexually active??Yes ?Sexually active with:?Men ?Number of male partners?1 ?Your sexual activities include:?anal intercourse, oral intercourse Receptive ?Do you use condoms??No ?Number of partners in past 3 months:?1 ?Number of partners in past year:?2 ?Does your partner(s) currently have any STIs??No ???HIV Risk Assessment:?Additional Questions?Is an HIV Risk Assessment being conducted??Yes ?Have you been tested for HIV before??Yes ?Did you have a blood transfusion prior to 1985??Yes ???PrEP for HIV:?PrEP for HIV?Is the client interested in beginning/continuing PrEP for HIV??No ???Relationships:?Relationships?Has the client experienced any of the following:?Reproductive Coercion, Harmful Relationships, Sexual Coercion Non current ?Emotionally?Yes ?Currently:?No ?Physically:?Yes ?Currently:?No ?Sexually:?No ?Been forced or pressured into sexual activities??No ???Human Trafficking:?Human Trafficking?Experienced:?No ???Tobacco Use:?Tobacco Use?Do you/have you used tobacco??No ?Tobacco Smoking Status?Never smoker ???Drugs/Alcohol:?Drug/Alcohol Use?Do you or have you used drugs??Yes, currently ?By what route are you taking drugs? Please check all that apply:?Smoking ?Which drug(s) do you smoke??Marijuana ?When did you last use?Do you want to quit drugs??No ?Do you or have you used alcohol??No ???Counseling Provided:?Counseling Provided?Please indicate the length of time, in minutes, that counseling was provided.?7 ?Counseling Was Provided By:?ashanti * Medications:?TakingBD [employer] - Miscellaneous as directed CVS Alcohol Prep Pads 70 % Pad as directed BD Disp [place] 19G X 1 Miscellaneous once a week Estradiol Valerate 20 MG/ML Oil 0.25ml/5mg Subcutaneous Once weekly BD Syringe/Needle 25G X 5/8 1 ML Miscellaneous once a week Spironolactone 100 MG Tablet 1 tablet Orally Once a day Prometrium 100 MG Capsule as directed Orally Once daily at bedtime Taking BD [employer] - Miscellaneous as directed Taking CVS Alcohol Prep Pads 70 % Pad as directed Taking BD Disp [place] 19G X 1 Miscellaneous once a week Taking Estradiol Valerate 20 MG/ML Oil 0.25ml/5mg Subcutaneous Once weekly Taking BD Syringe/Needle 25G X 5/8 1 ML Miscellaneous once a week Taking Spironolactone 100 MG Tablet 1 tablet Orally Once a day Taking Prometrium 100 MG Capsule as directed Orally Once daily at bedtime DiscontinuedBD Disp [place] 19G X 1 Miscellaneous as directed for drawing up injectable medication , Notes to Pharmacist: duplicateEstradiol Cypionate 5 MG/ML Oil 0.5 milliliter subcutaneous Weekly Estradiol Cypionate 5 MG/ML Oil 0.5ml subcutaneously weekly Discontinued BD Disp [place] 19G X 1 Miscellaneous as directed for drawing up injectable medication , Notes to Pharmacist: duplicateDiscontinued Estradiol Cypionate 5 MG/ML Oil 0.5 milliliter subcutaneous Weekly Discontinued Estradiol Cypionate 5 MG/ML Oil 0.5ml subcutaneously weekly * Allergies:?StrawberriesPeanu t (Diagnostic)no[Allergies Verified] Objective: * Vitals:?BP:126/74mm Hg, Ht: 66 in, Wt:153.2lbs, BMI:24.72Index, Ht-cm: 167.64, Wt-k.49. * Examination: ???General Examination: ?GENERAL APPEARANCE:?pleasant, in no acute distress.? Assessment: * Assessment: 1.?Gender identity disorder, unspecified - F64.9 (Primary)???2.?Hormone replacement therapy - Z79.890??? Need 2 out of 3 Sections fro m A-C Section B) Data (need at least one of the following categories in this section) Category 1: (Choose three of the following): Review test results Section C) Risk (any one of the following) Prescription drug management (this counts for the whole section) Plan: * Treatment: * Procedure Codes:? * Follow Up:?1 Year (Reason: G AH follow up (or sooner PRN)) * Billing Information: * Visit Code:? 50336 Existing - Medium Complexity (IN USE). * Procedure Codes:? * Sign off status: Completed true * Provider:?JAMA Barlow- ROSA D ate:?08/27/2024 Generated for Eddie johnston/Justine/eTransmitting on:?10/24/2024 04:16 PM EST History and Physical Notes * HPI (History of Present Illness) Category Sub-Category Detail Notes Category Not es Visit Narrative Current form of yoni h control: none Pt very happy with current HRT dosing. No concerns or negative side effects from estradiol valerate, prometrium or spironalactone. Completed lab work recently. Presenting Symptoms: no Sx or concerns Other Notes for the Clinician: Yordy cobos has no concerns. Here for GA continuation Last date of UPI: 08/18/2024 Examination Category Sub-Category Detail Notes Category Not es General Examination GENERAL APPEARANCE: pleasant, in n o acute distress
--- OUTSIDE RECORDS SUMMARY | 2024-10-24 16:17 | XMS_ITS ---
Author Organization [facility] Address [address] [phone] Care Team Providers Care Air Conditioning Supervisor Name Role Phone FAYE JACKSON Unavailable [phone] Results Component Value Reference Range Notes [id number] Reviewed date:08/13/2024 10:47:17 AM Interpretation:10, Normal Performing Lab:[facility], [employer] [facility], Phone - [phone], Director - Karma Notes/Report: Clinical Information:Client on hormones. Please run labs as ordered regar dless of t BUN 10 6-20 mg/dL Potassium-[id number] Reviewed date:08/13/2024 10:47:02 AM Interpretation:4.5 Normal Performing Lab:[facility], [employer] [facility], Phone - [phone], Director - Karma Notes/Report: Clinical Information:Client on hormones. Please run labs as ordered regar dless of t Potassium 4.5 3.5-5.2 mmol/L Creatinine-[id number] Reviewed date:08/13/2024 10:45:47 AM Interpretation:Cr 0.75 (mildly low) Performing Lab:[facility] [place], [employer] [facility] [place], Phone - [phone], Director - Karma Notes/Report: Clinical Information:Client on hormones. Please run labs as ordered regar dless of t Creatinine 0.75 0.76-1.27 mg/dL eGFR 132 >59 mL/min/1.73 Testosterone-[id number] Reviewed date:08/13/2024 10:43:32 AM Interpretation:<3 Performing Lab:[facility] [place], [address] [facility], Phone - [phone], Director - Karma Notes/Report: Clinical Information:Client on hormones. Please run labs as ordered regar dless of t Testosterone <3 264-916 ng/dL Adult male reference interval is based on a population of healthy nonobese males (BMI <30) between 19 and 39 years old. roseline Denney.al. JCEM 2017,102;[id number]. PMID: [id number]. Estradiol-[id number] Reviewed date:08/13/2024 11:17:44 AM Interpretation:358 Performing Lab:[facility] [place], [address] [facility], Phone - [phone], Director - Karma Notes/Report: Clinical Information:Client on hormones. Please run labs as ordered regar dless of t Estradiol 358.0 7.6-42.6 pg/mL Dipak ECLIA m ethodology T pallidum Screening [place] -[id number] Reviewed date:08/13/2024 10:47:31 AM Interpretation:Negative Performing Lab:[facility], [address], [address], [employer], Phone - [phone], Director - [facility] Notes/Report: Clinical Information:Client on hormones. Please run labs as ordered regar dless of t T pallidum Antibodies Non Reactive Non Reactive HIV Ab/p24 Ag with Reflex-[id number] Reviewed date:08/13/2024 10:47:46 AM Interpretation:Negative Performing Lab:[facility] [place], [address], [address], [employer], Phone - [phone], Director - [facility] Notes/Report: Clinical Information:Client on hormones. Please run labs as ordered regar dless of t HIV Ab/p24 Ag Screen Non Reactive Non Reactive HIV-1/HIV-2 antibodies and HIV-1 p24 antigen were NOT detected. There is no laboratory evidence of HIV infection. HIV Negative REASON FOR VISIT [facility] labs Medications Medication SIG (Take, Route, Frequency, Duration) Notes Start Date End Date Status Estradiol Valerate 20 MG/ML 0.25ml/5mg Subcutaneous Once weekly for 90 days 04/11/2024 Active Estradiol Cypionate 5 MG/ML 0.5ml subcutaneously weekly for 90 days 03/05/2024 Active BD Syringe/Needle 25G X 5/8 1 ML once a week for 90 days 08/10/2023 Acti ve BD Disp [place] 19G X 1 as directed for drawing up injectable medication for 90 days 07/28/2023 Active Spironolactone 100 MG 1 tablet Orally On ce a day for 90 days Active Estradiol Cypionate 5 MG/ML 0.5 milliliter subcutaneous Weekly for 90 days 07/28/2023 Active BD Disp [place] 19G X 1 once a week for 90 days 1 10/10/2022 Active Prometrium 100 MG as directed Orally O nce daily at bedtime for 90 days 06/15/2024 Active BD [employer] - as directed for 90 days 07/28/2023 Active CVS Alcohol Prep Pads 70 % as directed for 90 days 07/28/2023 Active Social History Sex Assigned At : Social History Observation Description Sex Assigned At Male Encounters Encounter Location Date Provider Diagnosis [address] [phone] 08/10/2024 FAYE JACKSON Hormone replacemen t therapy Z79.890 ; Encounter for screening for infections with a predominantly sexual mode of transmission Z11.3 and HIV Screening Z11.4 Assessments Encounter Date Diagnosis (ICD Code) Assessment Notes Treatment Notes Treatment Clinical Notes Section Notes 08/10/2024 Hormone replacement therapy (ICD-10 - Z79.890) 08/10/2024 Encounter for screening for infections with a predominantly sexual mode of transmission (ICD-10 - Z11.3) 08/10/2024 HIV Screening (ICD-10 - Z11.4) Plan Of Treatment Next Appt Details Provider Name:FAYE JACKSON, 09/2024 12:45:00 PM, [address] [place] [address], [phone], Progress Notes * Torsten ESCALANTE XDOB:2004 (18 yo M)Acc No.[id number]:08/10/2024 LAB Patient:?Torsten ESCALANTE Provider:?FAYE JACKSON :2005???Age:18 Y???Sex:Male(T) Date:08/10/2024 Address:[address] [place], [place] [id number] Subjective: * Chief Complaints: * ???[facility] labs * Medical History:? * Surgical History:? * Hospitalization/Major Diagno stic Procedure:? * Medications:?TakingBD [employer] - Miscellaneous as directed CVS Alcohol Prep Pads 70 % Pad as directed BD Disp [place] 19G X 1 Miscellaneous once a week Estradiol Cypionate 5 MG/ML Oil 0.5 milliliter subcutaneous Weekly Estradiol Cypionate 5 MG/ML Oil 0.5ml subcutaneously weekly Estradiol Valerate 20 MG/ML Oil 0.25ml/5mg Subcutaneous Once weekly BD Disp [place] 19G X 1 Miscellaneous as directed for [...] % Pad as directed Taking BD Disp [place] 19G X 1 Miscellaneous once a week Taking Estradiol Cypionate 5 MG/ML Oil 0.5 milliliter subcutaneous Weekly Taking Estradiol Cypionate 5 MG/ML Oil 0.5ml subcutaneously weekly Taking Estradiol Valerate 20 MG/ML Oil 0.25ml/5mg Subcutaneous Once weekly Taking BD Disp [place] 19G X 1 Miscellaneous as directed for drawing up injectable medication Taking BD Syringe/Needle 25G X 5/8 1 ML Miscellaneous once a week Taking Spironolactone 100 MG Tablet 1 tablet Orally Once a day Taking Prometrium 100 MG Capsule as directed Orally Once daily at bedtime Objective: * Vitals:? Assessment: * Assessment: 1.?Hormone replacement thera py - Z79.890???2.?Encounter for screening for infections with a predominantly sexual mode of transmission - Z11.3???3.?HIV Screening - Z11.4??? Plan: * Treatment: ? Value Reference Range ?BUN 10 6-20 - mg/dL * This lab was reviewed by MILENA RAMIREZ on 08/13/2024 at 10:47 AM EST ?LAB: Potassium-[id number] (Collection Date & Time - 08/10/2024 01:02 PM)* ? Value Reference Range ?Potassium 4.5 3.5-5.2 - mmo l/L * This lab was reviewed by MILENA RAMIREZ on 08/13/2024 at 10:47 AM EST ?LAB: Creatinine-[id number] (Collection Date & Time - 08/10/2024 01:02 PM)* ? Value Reference Range ?Creatinine 0.75 L 0.76-1.27 - mg/dL * ?eGFR 132 >59 - mL/min/1. 73 * FAYE JACKSON 08/13/2024 10:44: 01 AM EST > mildly low for AMAB range but normal for AFAB range. This can sometime indicate lower muscle mass. No high concerns.This lab was reviewed by FAYE JACKSON on 08/13/2024 at 10:45 AM EST ?LAB: Testosterone-[id number] (Collection Date & Time - 08/10/2024 01:02 PM)* ? Value Reference Range ?Testosterone <3 L 264-916 - ng/dL * FAYE JACKSON 08/13/2024 10:43: 02 AM EST > your testosterone levels are very well supressed. To be discussed further at your next follow-up visitThis lab was reviewed by FAYE JACKSON on 08/13/2024 at 10:43 AM EST ?LAB: Estradiol-[id number] (Collection Date & Time - 08/10/2024 01:02 PM)* ? Value Reference Range ?Estradiol 358.0 H 7.6-42.6 - pg /mL * FAYE JACKSON 08/13/2024 10:41: 45 AM EST > Estradiol above suggested goal range of 100-200 but consistent with previous lab. Estradiol levels already discussed at previous visitThis lab was reviewed by Karen Winters on 08/13/2024 at 11:17 AM EST 2.?Encounter for screening for infections with a predominantly sexual mode of transmission?LAB: T pallidum Screening [place]-[id number] (Collection Date & Time - 08/10/2024 01:02 PM)* ? Value Reference Range ?T pallidum Antibodies Non Reactive N on Reactive - * This lab was reviewed by MILENA RAMIREZ on 08/13/2024 at 10:47 AM EST 3.?HIV Screening?LAB: HIV Ab/p24 Ag with Reflex-[id number] (Collection Date & Time - 08/10/2024 01:02 PM)* ? Value Reference Range ?HIV Ab/p24 Ag Screen Non Reactive No n Reactive - * This lab was reviewed by MILENA RAMIREZ on 08/13/2024 at 10:47 AM EST * Procedure Codes:? * Billing Information: * Visit Code:? * Procedure Codes:? * Sign off status: Completed true * Provider:?FAYE JACKSON Date:?08/10/2024 Generated for Eddie johnston/Justine/eTransmitting on:?10/24/2024 04:16 PM EST
== END 2024-10-24 15:13 | disposition home or self-care (01) ==
PROVIDERS: Physician Assistant Medical; Emergency Provider Student in an Organized Health Care Education/Training Program
DX: J10.1 Influenza due to other identified influenza virus with other respiratory manifestations (principal); R07.9 Chest pain, unspecified; R51.9 Headache, unspecified; R50.9 Fever, unspecified; R05.9 Cough, unspecified; R06.02 Shortness of breath; R11.2 Nausea with vomiting, unspecified; F12.90 Cannabis use, unspecified, uncomplicated; Z03.818 Encounter for observation for suspected exposure to other biological agents ruled out
CPT/HCPCS: 0241U; 71046; 80053; 83735; 85025; 87651; 96374; 96375; 99284; 99285; J1885; J2405; J2470

== ENCOUNTER → 2024-10-24 13:46 | Outpatient (BNV) | payer OTHER, SELFPAY | PROVIDERS: Emergency Provider Student in an Organized Health Care Education/Training Program; Visit Provider Radiology Diagnostic Radiology | DX: R07.9 Chest pain, unspecified (principal) | CPT/HCPCS: 71046 ==

== ENCOUNTER 2024-12-26 14:27 | Emergency (ER) | payer OTHER, SELFPAY ==
--- NOTE | ~2024-12-26 | XR_ITS ---
EXAMINATION: XR HAND, RIGHT CLINICAL INFORMATION: laceration on fifth digit, r/o FB vs fx COMPARISON: None available. TECHNIQUE: PA, lateral, and oblique views of the right hand. FINDINGS: No fracture, dislocation, or suspicious bone lesion. Normal bone mineralization. Normal alignment. Joint spaces are preserved. No significant arthropathy. No significant joint effusion. Normal-appearing soft tissues. No radiopaque foreign body. XR/XR hand RT min 3V IMPRESSION: 1. No fracture or radiopaque foreign body. Electronically signed by: Suleiman Erwin MD 12/26/2024 03:53 PM EDT
[2024-12-26 14:37] VITALS: BP 124/76; PULSE 80; O2SAT 98
[2024-12-26 14:52] VITALS: BP 98/43; PULSE 83; RESP 12; TEMP 37.1; O2SAT 100; BMI 24.2
--- NOTE | 2024-12-26 14:52 | ED.SKABFB ---
HPI - Skin/Abscess/Foreign Bdy General Chief complaint: Wound/Laceration Stated complaint: pinky lac from knife, bleeding controlled Related Data Home Medications ?Medication ?Instructions ?Recorded ?Confirmed spironolactone 100 mg tablet 100 mg PO BID 06/03/23 04/12/24 estradiol valerate 20 mg/mL mg IM 04/12/24 04/12/24 intramuscular oil Previous Rx's ?Medication ?Instructions ?Recorded docusate sodium 100 mg capsule 100 mg PO BID #30 caps 03/28/24 (Colace) hydromorphone 2 mg tablet 2 mg PO Q4-6H PRN pain (scale 03/30/24 (Dilaudid) score 7-10) #24 tabs Allergies Allergy/AdvReac Type Severity Reaction Status Date / Time strawberry Allergy Rash Verified 12/26/24 14:53 peanut AdvReac Difficulty Verified 12/26/24 14:53 Breathing PMFSH Past Medical History Surgical History (Updated 04/12/24 @ 15:23 by MAGGIE Shea) History of laparoscopic appendectomy (03/28/24) History of wisdom tooth extraction Social History Social History Household Members: None Housing: Apartment Do you presently have visiting nurse or other home services: No Patient Tobacco Use Status: Never used Tobacco Substance Use Type: Marijuana Advance Directives: No Advance Directives Information Provided: No service: No Physical Exam Vital Signs: Vital Signs: Last Vital Signs Temp 98.7 F 12/26/24 14:52 Pulse 83 12/26/24 14:52 Resp 12 12/26/24 14:52 BP 98/43 L 12/26/24 14:52 Pulse Ox 100 12/26/24 14:52 BMI result Body Mass Index 24.2 Course Course Course Narrative: This is an RME: Additional HPI, ROS, PE not included below will be deferred to primary provider. RME assessment and note performed by: Morena Carroll PA-C This is a 63-wtvb-ixv-male assigned at patient who presents to the ER with concerns for right fifth digit laceration. Reports that they accidentally lacerated their finger while cutting food today. bleeding controlled in triage. Pt with partial thickness lacerated noted to the fifth digit, palmar aspect just inferior to the PIP. full ROM of the digit. No obvious foreign body identified. Under no acute distress. unknown tdap Plan: xray, wound repair, tdap Reevaluation(s) Reevaluation #1: Patient left without completing treatment. Discharge Plan Discharge Clinical Impression: Laceration Patient Disposition: Left W/O Completing Treatment Prescriptions: No Action spironolactone 100 mg tablet 100 mg PO BID docusate sodium [Colace] 100 mg capsule 100 mg PO BID Qty: 30 0RF hydromorphone [Dilaudid] 2 mg tablet 2 mg PO Q4-6H PRN (Reason: pain (scale score 7-10)) Qty: 24 0RF Rx Instructions: Partial Fill upon patient request. estradiol valerate 20 mg/mL oil IM Discharge Date/Time: 12/26/24 21:00
--- NOTE | 2024-12-26 20:25 | PC.NURSE ---
no answer from WR at 2019
== END 2024-12-26 21:00 | disposition left against medical advice (07) ==
LOC: HO.ED 20:48
PROVIDERS: Emergency Provider Emergency Medicine
DX: S61.216A Laceration without foreign body of right little finger without damage to nail, initial encounter (principal); W26.0XXA Contact with knife, initial encounter; Y93.G3 Activity, cooking and baking; Y92.9 Unspecified place or not applicable; Y99.8 Other external cause status
CPT/HCPCS: 73130; 99281; 99283

== ENCOUNTER → 2024-12-26 15:40 | Outpatient (BNV) | payer OTHER, SELFPAY | PROVIDERS: Visit Provider Radiology Diagnostic Radiology | DX: S61.216A Laceration without foreign body of right little finger without damage to nail, initial encounter (principal) | CPT/HCPCS: 73130 ==